=== PATIENT | female | born 1980 | race Caucasian/White ===

== ENCOUNTER 2018-02-01 02:55 | Emergency (ER) | payer OTHER, SELFPAY ==
[2018-02-01] MEDS ORDERED: MORPHINE 4 MG/ML SYR ONE (03:20)
[2018-02-01] MEDS ORDERED: NA CHLORIDE 0.9% 1,000 ML ONE (03:21)
[2018-02-01] MEDS ORDERED: ONDANSETRON 4 MG/2 ML VIAL ONE (03:21)
[2018-02-01] MEDS ORDERED: FAMOTIDINE 20 MG/2 ML VIAL IV ONE (03:53)
[2018-02-01 03:57] LABS: Absolute Lymphocytes (CBC) 3.4 K/uL (0.7-4.9); Absolute Monocytes 0.5 K/uL (0.1-1.3); Absolute Neutrophil 4.9 K/uL (1.8-8.0); Basophils % 0.5 % (0-1.3); Eosinophils % 3.1 % (0-4.4); Hematocrit 40.2 % (36.0-45.0); Lymphocytes % 36.9 % (15.3-44.8); MCH 31.5 pg (27.0-35.0); MCV 90.5 fL (80-100); MPV 10.3 fL (7.6-11.3); Monocytes % 5.9 % (3.3-12.3); RBC Red Blood Cell Count 4.45 M/uL (3.86-4.86)
[2018-02-01 04:08] LABS: ALT/SGPT 47 U/L (12-78); AST/SGOT 23 U/L (15-37); Albumin 4.3 g/dL (3.4-5.0); Alkaline Phosphatase 76 U/L (45-117); Amylase Level 39 U/L (25-115); BUN Blood Urea Nitrogen 13 mg/dL (7-18); Bicarbonate 29 mmol/L (21-32); Bilirubin Direct < 0.1 mg/dL (0-0.2); Bilirubin Total 0.4 mg/dL (0.2-1.0); Glucose Level 95 mg/dL (74-106); Lipase 310 U/L (73-393); Potassium 3.5 mmol/L (3.5-5.1); Protein, Total 7.7 g/dL (6.4-8.2); Sodium Level 139 mmol/L (136-145)
[2018-02-01 04:16] LABS: Urine Blood NEGATIVE (NEG); Urine Glucose NEGATIVE (NEG); Urine Protein NEGATIVE (NEG)
[2018-02-01 04:17] LABS: Urine Bacteria <20 /HPF (<20); Urine Culture Reflex Order NOT NEEDED
[2018-02-01 04:18] LABS: Urine RBC <5 /HPF (NONE SEEN)
--- NOTE | 2018-02-01 05:36 | EDPHYS ---
Physician Documentation [facility] Name: Tommy Quigley Age: 37 yrs Sex: Female : 1980 Arrival Date: 02/01/2018 Time: 02:56 Bed 7 Private MD: Gela Banksh ED Physician Rodri Galloway HPI: 02/01 03:29 This 37 yrs old Female presents to ER via Ambulatory with complaints of carley Abdominal Pain, Back Pain. 03:29 The patient presents with pain that is acute. The symptoms are located in the lumbar carley area. Onset: The symptoms/episode began/occurred just prior to arrival. The pain does not radiate. Associated signs and symptoms: Pertinent positives: nausea, vomiting. Modifying factors: The patient symptoms are alleviated by nothing, the patient symptoms are aggravated by pressure, food. Severity of symptoms: At their worst the symptoms were moderate. The patient has not experienced similar symptoms in the past. RECHECKER: 03:00 LMP 02/01/2018 fc Historical: - Allergies: 03:13 Tdap; fc - Home Meds: 03:13 Unisom Sleepgels oral oral nightly [Active]; Melatonin Oral nightly [Active]; fc - PMHx: 03:13 insomnia; Kidney stones; fc - PSHx: 03:13 Lithotripsy; ; fc - Immunization history:: Last tetanus immunization: up to date. - Social history:: Smoking status: Patient/guardian denies using tobacco. - Ebola Screening: : Patient negative for fever greater than or equal to 101.5 degrees Fahrenheit, and additional compatible Ebola Virus Disease symptoms Patient denies exposure to infectious person Patient denies travel to an Ebola-affected area in the 21 days before illness onset. - Family history:: not pertinent. ROS: 03:29 Constitutional: Negative for fever, chills, and weight loss, Eyes: Negative for injury, carley pain, redness, and discharge, ENT: Negative for injury, pain, and discharge, Neck: Negative for injury, pain, and swelling, Cardiovascular: Negative for chest pain, palpitations, and edema, Respiratory: Negative for shortness of breath, cough, wheezing, and pleuritic chest pain, Back: Negative for injury and pain, : Negative for injury, bleeding, discharge, and swelling, MS/Extremity: Negative for injury and deformity, Skin: Negative for injury, rash, and discoloration, Neuro: Negative for headache, weakness, numbness, tingling, and seizure, Psych: Negative for depression, anxiety, suicide ideation, homicidal ideation, and hallucinations, Allergy/Immunology: Negative for hives, rash, and allergies, Endocrine: Negative for neck swelling, polydipsia, polyuria, polyphagia, and marked weight changes, Hematologic/Lymphatic: Negative for swollen nodes, abnormal bleeding, and unusual bruising. 03:29 Abdomen/GI: Positive for abdominal pain, of the epigastric area, right upper quadrant and left upper quadrant. Exam: 03:29 Constitutional: This is a well developed, well nourished patient who is awake, alert, carley and in no acute distress. Head/Face: Normocephalic, atraumatic. Eyes: Pupils equal round and reactive to light, extra-ocular motions intact. Lids and lashes normal. Conjunctiva and sclera are non-icteric and not injected. Cornea within normal limits. Periorbital areas with no swelling, redness, or edema. ENT: Nares patent. No nasal discharge, no septal abnormalities noted. Tympanic membranes are normal and external auditory canals are clear. Oropharynx with no redness, swelling, or masses, exudates, or evidence of obstruction, uvula midline. Mucous membranes moist. Neck: Trachea midline, no thyromegaly or masses palpated, and no cervical lymphadenopathy. Supple, full range of motion without nuchal rigidity, or vertebral point tenderness. No Meningismus. Chest/axilla: Normal chest wall appearance and motion. Nontender with no deformity. No lesions are appreciated. Cardiovascular: Regular rate and rhythm with a normal S1 and S2. No gallops, murmurs, or rubs. Normal PMI, no JVD. No pulse deficits. Respiratory: Lungs have equal breath sounds bilaterally, clear to auscultation and percussion. No rales, rhonchi or wheezes noted. No increased work of breathing, no retractions or nasal flaring. Back: No spinal tenderness. No costovertebral tenderness. Full range of motion. Female : Normal external genitalia. Skin: Warm, dry with normal turgor. Normal color with no rashes, no lesions, and no evidence of cellulitis. MS/ Extremity: Pulses equal, no cyanosis. Neurovascular intact. Full, normal range of motion. Neuro: Awake and alert, GCS 15, oriented to person, place, time, and situation. Cranial nerves II-XII grossly intact. Motor strength 5/5 in all extremities. Sensory grossly intact. Cerebellar exam normal. Normal gait. Psych: Awake, alert, with orientation to person, place and time. Behavior, mood, and affect are within normal limits. 03:29 Abdomen/GI: Inspection: abdomen appears normal, Bowel sounds: normal, Palpation: moderate abdominal tenderness, in the epigastric area, right upper quadrant and left upper quadrant, Liver: no appreciated palpable abnormalities, Hernia: not appreciated. Vital Signs: 03:00 BP 134 / 101; Pulse 105; Resp 20; Temp 98.2(O); Pulse Ox 100% on R/A; Weight 77.11 kg fc (R); Height 4 ft. 11 in. (149.86 cm) (R); Pain 8/10; 04:30 BP 138 / 119; Pulse 78; Resp 19 S; Pulse Ox 96% on R/A; cc3 05:30 BP 128 / 114; Pulse 85; Resp 18 S; Pulse Ox 98% on R/A; Pain 4/10; cc3 03:00 Body Mass Index 34.34 (77.11 kg, 149.86 cm) MDM: 03:34 Data reviewed: vital signs, nurses notes, lab test result(s), EKG, radiologic studies, [facility] CT scan, plain films. 03:35 Patient medically screened. [facility] 02/01 03:07 Order name: Urine Dipstick--Ancillary (enter results); Complete Time: 04:59 [facility] 02/01 03:07 Order name: Urine --Ancillary (enter results); Complete Time: 04:59 [facility] 02/01 03:09 Order name: Amylase, Serum; Complete Time: 04:59 02/01 03:09 Order name: Basic Metabolic Panel; Complete Time: 04:59 02/01 03:09 Order name: CBC with Diff; Complete Time: 04:59 02/01 03:09 Order name: Creatinine for Radiology; Complete Time: 04:59 02/01 03:09 Order name: Hepatic Function; Complete Time: 04:59 02/01 03:09 Order name: Lipase; Complete Time: 04:59 02/01 03:09 Order name: Urine Microscopic Only; Complete Time: 04:59 bp 02/01 03:13 Order name: CT Abd/Pelvis - W/Contrast 02/01 03:28 Order name: Chest Single View XRAY [facility] 02/01 03:09 Order name: Urine Test (obtain specimen); Complete Time: 03:09 02/01 03:09 Order name: IV Saline Lock; Complete Time: 03:09 02/01 03:09 Order name: Labs collected and sent; Complete Time: 03:09 02/01 03:09 Order name: Urine Dipstick-Ancillary (obtain specimen); Complete Time: 03:09 02/01 03:34 Order name: EKG; Complete Time: 03:35 [facility] 02/01 03:34 Order name: EKG - Nurse/Tech; Complete Time: 03:42 [facility] Administered Medications: 03:15 Drug: NS 0.9% 1000 ml Route: IV; Rate: 1 bolus; Site: right antecubital; cc3 04:30 Follow up: IV Status: Completed infusion; IV Intake: 1000ml cc3 03:17 Drug: morphine 4 mg Route: IVP; Site: right antecubital; cc3 03:41 Follow up: Response: Pain is decreased bp 03:20 Drug: Zofran 4 mg Route: IVP; Site: right antecubital; cc3 03:41 Follow up: Response: Nausea is decreased bp 03:52 Drug: Pepcid 20 mg Route: IVP; Site: right antecubital; bp 03:53 Follow up: Response: No adverse reaction bp Disposition: 02/01/18 05:35 Discharged to Home. Impression: Abdominal tenderness, Nausea and vomiting. - Condition is Stable. - Discharge Instructions: Abdominal Pain, Adult, Nausea and Vomiting, Adult, Abdominal Pain, Adult, [id number]. - Prescriptions for Bentyl 20 mg Oral Tablet - take 1 tablet by ORAL route every 6 hours As needed; 20 tablet. Pepcid 20 mg Oral Tablet - take 1 tablet by ORAL route every 12 hours for 10 days; 20 tablet. Zofran 4 mg Oral Tablet - take 1 tablet by ORAL route every 12 hours As needed; 20 tablet. - Medication Reconciliation Form, Thank You Letter, Antibiotic Education, Prescription Opioid Use form. - Follow up: Angelito Banks DO; When: 2 - 3 days; Reason: Recheck today's complaints, Continuance of care, Re-evaluation by your physician. Follow up: Tushar Manuel MD; When: 2 - 3 days; Reason: Recheck today's complaints, Re-evaluation by your physician. - Problem is new. - Symptoms have improved. Signatures: Dispatcher [employer] EDMS Rodri Galloway MD MD cha Chretien, Felicia RN RN Yuri Vernon RN RN Pavithra Miguel cc3 Corrections: (The following items were deleted from the chart) 05:38 05:35 02/01/2018 05:35 Discharged to Home. Impression: Abdominal tenderness; Nausea and carley vomiting. Condition is Stable. Forms are Medication Reconciliation Form, Thank You Letter, Antibiotic Education, Prescription Opioid Use. Follow up: Angelito Banks; When: 2 - 3 days; Reason: Recheck today's complaints, Continuance of care, Re-evaluation by your physician. Problem is new. Symptoms have improved. [facility] 05:59 05:38 02/01/2018 05:35 Discharged to Home. Impression: Abdominal tenderness; Nausea and cc3 vomiting. Condition is Stable. Discharge Instructions: Abdominal Pain, Adult, Nausea and Vomiting, Adult, Abdominal Pain, Adult, [id number]. Prescriptions for Bentyl 20 mg Oral Tablet - take 1 tablet by ORAL route every 6 hours As needed; 20 tablet, Pepcid 20 mg Oral Tablet - take 1 tablet by ORAL route every 12 hours for 10 days; 20 tablet, Zofran 4 mg Oral Tablet - take 1 tablet by ORAL route every 12 hours As needed; 20 tablet. and Forms are Medication Reconciliation Form, Thank You Letter, Antibiotic Education, Prescription Opioid Use. Follow up: Angelito Banks; When: 2 - 3 days; Reason: Recheck today's complaints, Continuance of care, Re-evaluation by your physician. Follow up: Tushar Manuel; When: 2 - 3 days; Reason: Recheck today's complaints, Re-evaluation by your physician. Problem is new. Symptoms have improved. carley
--- NOTE | 2018-02-01 05:36 | ER ---
Nurse's Notes [facility] Name: Tommy Quigley Age: 37 yrs Sex: Female : 1980 Arrival Date: 02/01/2018 Time: 02:56 Bed 7 Private MD: Angelito Banks Diagnosis: Abdominal tenderness;Nausea and vomiting Presentation: 02/01 03:00 Presenting complaint: Patient states: that she is having abd pain that radiates to her back. Also positive for nausea. Denies any constipation, diarrhea, urinary problems or shortness of breath. Transition of care: patient was not received from another setting of care. Onset of symptoms was January 31, 2018. Risk Assessment: Do you want to hurt yourself or someone else? Patient reports no desire to harm self or others. Initial Sepsis Screen: Does the patient meet any 2 criteria? HR > 90 bpm. Yes Does the patient have a suspected source of infection? No. Patient's initial sepsis screen is negative. Care prior to arrival: None. 03:00 Method Of Arrival: Ambulatory 03:00 Acuity: TIERRA 3 Triage Assessment: 03:00 General: Appears uncomfortable, obese, Behavior is calm, cooperative, appropriate for age. Pain: Complains of pain in abdomen Pain radiates to back Pain currently is 8 out of 10 on a pain scale. Quality of pain is described as aching, sharp, throbbing, Pain began 1 day ago. Is continuous. EENT: No deficits noted. Neuro: Level of Consciousness is awake, alert, obeys commands, Oriented to person, place, time, situation. Cardiovascular: No deficits noted. Respiratory: No deficits noted. GI: Abdomen is non-distended, Reports lower abdominal pain, upper abdominal pain, nausea, Patient currently denies constipation, diarrhea, vomiting. : No deficits noted. Derm: Skin is pink, warm \T\ dry. Musculoskeletal: Circulation, motion, and sensation intact. Capillary refill < 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 - Social history:: Smoking status: Patient/guardian denies using tobacco. - Ebola Screening: : Patient negative for fever greater than or equal to 101.5 degrees Fahrenheit, and additional compatible Ebola Virus Disease symptoms Patient denies exposure to infectious person Patient denies travel to an Ebola-affected area in the 21 days before illness onset. - Family history:: not pertinent. Screenin:09 Abuse screen: Denies threats or abuse. Denies injuries from another. Nutritional bp screening: No deficits noted. Tuberculosis screening: No symptoms or risk factors identified. Fall Risk None identified. Assessment: 03:11 Reassessment: No changes from previously documented assessment. Patient and/or family fc updated on plan of care and expected duration. Pain level reassessed. Patient is alert, oriented x 3, equal unlabored respirations, skin warm/dry/pink. see triage assessment. 03:12 GI: Bowel sounds present X 4 quads. Abd is soft X 4 quads Abd is non tender X 4 quads. cc3 03:40 Reassessment: PO CONTRAST COMPLETED, CT NOTIFIED. bp 05:13 Reassessment: Patient appears in no apparent distress at this time. Patient and/or cc3 family updated on plan of care and expected duration. Pain level reassessed. Patient is alert, oriented x 3, equal unlabored respirations, skin warm/dry/pink. patient came back from CT scan department and CT scan abdomen/pelvis done. 05:45 Reassessment: Patient appears in no apparent distress at this time. Patient and/or cc3 family updated on plan of care and expected duration. Pain level reassessed. Patient is alert, oriented x 3, equal unlabored respirations, skin warm/dry/pink. Dr. Galloway discharged home the patient with prescription given. IV cannula removed and patient left ER vitally stable and ambulatory. Vital Signs: 03:00 BP 134 / 101; Pulse 105; Resp 20; Temp 98.2(O); Pulse Ox 100% on R/A; Weight 77.11 kg fc (R); Height 4 ft. 11 in. (149.86 cm) (R); Pain 8/10; 04:30 BP 138 / 119; Pulse 78; Resp 19 S; Pulse Ox 96% on R/A; cc3 05:30 BP 128 / 114; Pulse 85; Resp 18 S; Pulse Ox 98% on R/A; Pain 4/10; cc3 03:00 Body Mass Index 34.34 (77.11 kg, 149.86 cm) ED Course: 02:56 Patient arrived in ED. ds1 02:57 Angelito Banks DO is Private Physician. ds1 03:00 Arm band placed on Patient placed in an exam room, on a stretcher. fc 03:02 Yuri Anand, FARRAH is Primary Nurse. bp 03:08 Triage completed. fc 03:09 Inserted saline lock: 20 gauge in right antecubital area, using aseptic technique. bp 03:09 Patient has correct armband on for positive identification. Placed in gown. Bed in low bp position. Call light in reach. Side rails up X2. 03:27 Rodri Galloway MD is Attending Physician. carley 04:[address] via wheelchair. kw1 05:05 CT Abd/Pelvis - W/Contrast In Process Unspecified. EDMS 05:07 CT completed. Patient tolerated procedure well. Patient moved back from CT. kw1 05:35 Angelito Banks DO is Referral Physician. carley 05:37 Chest Single View XRAY In Process Unspecified. EDMS 05:37 Tushar Manuel MD is Referral Physician. carley 05:45 No provider procedures requiring assistance completed. IV discontinued, intact, cc3 bleeding controlled, No redness/swelling at site. Pressure dressing applied. Administered Medications: 03:15 Drug: NS 0.9% 1000 ml Route: IV; Rate: 1 bolus; Site: right antecubital; cc3 04:30 Follow up: IV Status: Completed infusion; IV Intake: 1000ml cc3 03:17 Drug: morphine 4 mg Route: IVP; Site: right antecubital; cc3 03:41 Follow up: Response: Pain is decreased bp 03:20 Drug: Zofran 4 mg Route: IVP; Site: right antecubital; cc3 03:41 Follow up: Response: Nausea is decreased bp 03:52 Drug: Pepcid 20 mg Route: IVP; Site: right antecubital; bp 03:53 Follow up: Response: No adverse reaction bp Intake: 04:30 IV: 1000ml; Total: 1000ml. cc3 Outcome: 05:35 Discharge ordered by MD. howe 05:45 Discharged to home ambulatory. cc3 05:45 Condition: stable 05:45 Discharge instructions given to patient, Instructed on discharge instructions, follow up and referral plans. medication usage, Demonstrated understanding of instructions, follow-up care, medications, Prescriptions given X 3. 05:59 Patient left the ED. cc3 Signatures: Dispatcher [employer] EDNJ Rodri Galloway MD MD cha Chretien, Felicia RN RN Veronica Mendoza1 Yuri Anand RN RN Brittney Alexandra1 Pavithra Ash cc3 Corrections: (The following items were deleted from the chart) 05:53 05:13 Reassessment: Patient appears in no apparent distress at this time. Patient cc3 and/or family updated on plan of care and expected duration. Pain level reassessed. Patient is alert, oriented x 3, equal unlabored respirations, skin warm/dry/pink. patient came back from CT scan department and CT scan abdomen/pelvis done, awaiting result. cc3
--- NOTE | 2018-02-01 08:25 | RAD REPORT ---
EXAM DESCRIPTION: CTAbdomen Pelvis W Contrast - 02/01/2018 6:57 am CLINICAL HISTORY: Abdominal pain. ABD PAIN COMPARISON: Pelvis W/Wo Cont dated 07/07/2017 TECHNIQUE: Biphasic CT imaging of the abdomen and pelvis was performed with 100 ml non-ionic IV cont rast. All CT scans are performed using dose optimization technique as appropriate and may include automated exposure control or mA/KV adjustment according to patient size. FINDINGS: The lung bases are clear. The liver demonstrates fatty infiltration. The spleen, pancreas, adrenal glands and kidneys are withi n normal limits. No bowel obstruction, free air, free fluid or abscess. The appendix is normal. No evidence of signi ficant lymphadenopathy. No suspicious bony findings. 4.7 x 4.7 cm right adnexal cyst is present. Follow-up pelvic ultrasound could be performed for furthe r assessment if clinically indicated. IMPRESSION: 4.7 x 4.7 cm right adnexal cyst. Follow-up pelvic ultrasound could be performed if clini holger needed. Fatty liver.
--- NOTE | 2018-02-01 08:51 | RAD REPORT ---
EXAM DESCRIPTION: RAD - Chest Single View - 02/01/2018 5:37 am CLINICAL HISTORY: ABDOMINAL DISTENTION Chest pain. COMPARISON: Abdomen Pelvis W Contrast dated 02/01/2018 FINDINGS: Portable technique limits examination quality. The lungs are grossly clear. The heart is normal in size. No displaced fractures. IMPRESSION: No acute intrathoracic process suspected.
--- NOTE | 2018-02-01 11:01 | EKG ---
Test Date: 2018-02-01 Test Time: 03:47:32 Corsets Salesperson: MEASUREMENT RESULTS: Intervals: Rate: 89 [place]: 160 QRSD: 80 QT: 392 QTc: 476 [place]: P: 28 OH: 160 QRS: 25 T: 25 INTERPRETIVE STATEMENTS: Normal sinus rhythm Normal ECG No previous ECG available for comparison Electronically Signed On 02-01-18 11:00:11 CDT by Nick Stein
== END 2018-02-01 05:59 | disposition home or self-care (01) ==
LOC: ER 02:55
DX: R11.2 Nausea with vomiting, unspecified (principal); Z88.7 Allergy status to serum and vaccine
CPT/HCPCS: 36415; 71045; 74177; 80048; 80076; 81003; 81015; 81025; 82150; 83690; 85025; 93005; 96361; 96374; 96375; 99284; J2405; J7030; Q9967

== ENCOUNTER 2018-02-09 23:52 | Emergency (ER) | payer SELFPAY ==
[2018-02-10] MEDS ORDERED: ONDANSETRON 4 MG/2 ML VIAL ONE (00:24)
[2018-02-10] MEDS ORDERED: KETOROLAC 30 MG/ML INJ ONE (00:24)
[2018-02-10] MEDS ORDERED: NA CHLORIDE 0.9% 500 ML ONE (00:24)
[2018-02-10 00:31] LABS: Urine Blood NEGATIVE (NEG); Urine Glucose NEGATIVE (NEG); Urine Protein NEGATIVE (NEG)
[2018-02-10 00:38] LABS: Absolute Lymphocytes (CBC) 2.7 K/uL (0.7-4.9); Absolute Monocytes 0.5 K/uL (0.1-1.3); Absolute Neutrophil 8.1 K/uL (1.8-8.0); Basophils % 0.5 % (0-1.3); Eosinophils % 1.9 % (0-4.4); Hematocrit 41.5 % (36.0-45.0); Lymphocytes % 23.5 % (15.3-44.8); MCH 31.4 pg (27.0-35.0); MCV 91.3 fL (80-100); MPV 10.7 fL (7.6-11.3); Monocytes % 4.7 % (3.3-12.3); RBC Red Blood Cell Count 4.55 M/uL (3.86-4.86)
[2018-02-10 00:44] LABS: Urine Bacteria <20 /HPF (<20); Urine Culture Reflex Order NOT NEEDED; Urine RBC <5 /HPF (NONE SEEN)
[2018-02-10 00:54] LABS: ALT/SGPT 37 U/L (12-78); AST/SGOT 23 U/L (15-37); Albumin 4.6 g/dL (3.4-5.0); Alkaline Phosphatase 77 U/L (45-117); BUN Blood Urea Nitrogen 12 mg/dL (7-18); Bicarbonate 27 mmol/L (21-32); Bilirubin Direct < 0.1 mg/dL (0-0.2); Bilirubin Total 1.1 mg/dL (0.2-1.0); Glucose Level 115 mg/dL (74-106); Lipase 283 U/L (73-393); Potassium 3.8 mmol/L (3.5-5.1); Protein, Total 7.8 g/dL (6.4-8.2); Sodium Level 139 mmol/L (136-145)
[2018-02-10] MEDS ORDERED: LORazepam 2 MG/ML VIAL ONE (01:31)
--- NOTE | 2018-02-10 01:45 | EDPHYS ---
Physician Documentation [facility] Name: Tommy Quigley Age: 37 yrs Sex: Female : 1980 Arrival Date: 02/09/2018 Time: 23:52 Bed 5 Private MD: Angelito Banks ED Physician Rodri Galloway HPI: 02/10 00:23 This 37 yrs old Female presents to ER via Ambulatory with complaints of snw Abdominal Pain - rad to back. 00:23 The patient presents with abdominal pain in the epigastric area. Onset: The snw symptoms/episode began/occurred 1.5 week(s) ago, and became worse. The symptoms radiate to back. Associated signs and symptoms: Pertinent positives: nausea and vomiting. The symptoms are described as stabbing. Severity of pain: At its worst the pain was severe. The patient has not experienced similar symptoms in the past. The patient has been recently seen at the [facility] Emergency Department, last week, for similar complaints labs were performed, X-rays were performed, CT scan was performed, Previous workup normal was given IV fluids, was given a prescription for pain medications, was given a prescription for an antiemetic. 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 - Social history:: Smoking status: Patient/guardian denies using tobacco. - Ebola Screening: : Patient negative for fever greater than or equal to 101.5 degrees Fahrenheit, and additional compatible Ebola Virus Disease symptoms Patient denies exposure to infectious person Patient denies travel to an Ebola-affected area in the 21 days before illness onset No symptoms or risks identified at this time. ROS: 00:23 Constitutional: Negative for fever, chills, and weight loss, Eyes: Negative for injury, snw pain, redness, and discharge, ENT: Negative for injury, pain, and discharge, Neck: Negative for injury, pain, and swelling, Cardiovascular: Negative for chest pain, palpitations, and edema, Respiratory: Negative for shortness of breath, cough, wheezing, and pleuritic chest pain, Back: Negative for injury and pain, : Negative for injury, bleeding, discharge, and swelling, MS/Extremity: Negative for injury and deformity, Skin: Negative for injury, rash, and discoloration, Neuro: Negative for headache, weakness, numbness, tingling, and seizure, Psych: Negative for depression, anxiety, suicide ideation, homicidal ideation, and hallucinations. 00:23 Abdomen/GI: Positive for abdominal pain, nausea, vomiting. Exam: 00:22 Head/Face: Normocephalic, atraumatic. Eyes: Pupils equal round and reactive to light, snw extra-ocular motions intact. Lids and lashes normal. Conjunctiva and sclera are non-icteric and not injected. Cornea within normal limits. Periorbital areas with no swelling, redness, or edema. ENT: Nares patent. No nasal discharge, no septal abnormalities noted. Tympanic membranes are normal and external auditory canals are clear. Oropharynx with no redness, swelling, or masses, exudates, or evidence of obstruction, uvula midline. Mucous membranes moist. Neck: Trachea midline, no thyromegaly or masses palpated, and no cervical lymphadenopathy. Supple, full range of motion without nuchal rigidity, or vertebral point tenderness. No Meningismus. Chest/axilla: Normal chest wall appearance and motion. Nontender with no deformity. No lesions are appreciated. Cardiovascular: Regular rate and rhythm with a normal S1 and S2. No gallops, murmurs, or rubs. Normal PMI, no JVD. No pulse deficits. Respiratory: Lungs have equal breath sounds bilaterally, clear to auscultation and percussion. No rales, rhonchi or wheezes noted. No increased work of breathing, no retractions or nasal flaring. Back: No spinal tenderness. No costovertebral tenderness. Full range of motion. Skin: Warm, dry with normal turgor. Normal color with no rashes, no lesions, and no evidence of cellulitis. MS/ Extremity: Pulses equal, no cyanosis. Neurovascular intact. Full, normal range of motion. Neuro: Awake and alert, GCS 15, oriented to person, place, time, and situation. Cranial nerves II-XII grossly intact. Motor strength 5/5 in all extremities. Sensory grossly intact. Cerebellar exam normal. Normal gait. Psych: Awake, alert, with orientation to person, place and time. Behavior, mood, and affect are within normal limits. 00:22 Constitutional: The patient appears alert, anxious, in obvious pain, uncomfortable. 00:22 Abdomen/GI: Inspection: abdomen appears normal, Bowel sounds: normal, in all quadrants, Palpation: moderate abdominal tenderness, in the epigastric area. Vital Signs: 00:15 BP 111 / 95; Pulse 123; Resp 24; Temp 98.7; Pulse Ox 97% ; Weight 81.65 kg (R); bp 01:15 BP 118 / 96; Pulse 114; Resp 24; Pulse Ox 96% ; bp MDM: 00:04 Patient medically screened. snw 01:45 Data reviewed: vital signs, nurses notes. Data interpreted: Pulse oximetry: on room air snw is 96 %. Interpretation: acceptable. Counseling: I had a detailed discussion with the patient and/or guardian regarding: the historical points, exam findings, and any diagnostic results supporting the discharge/admit diagnosis, the presence of at least one elevated blood pressure reading (>120/80) during this emergency department visit, lab results, the need for outpatient follow up, to return to the emergency department if symptoms worsen or persist or if there are any questions or concerns that arise at home. Response to treatment: the patient's symptoms have markedly improved after treatment, and as a result, I will discharge patient. Special discussion: Based on the patient's Hx, exam, and Dx evaluation, there is no indication for emergent surgery or inpatient Tx. It is understood by the patient/guardian that if the Sx's persist or worsen they need to return immediately for re-evaluation. I have referred the patient to see his PCP for further evaluation of high blood pressure. Based on the history and exam findings, there is no indication for further emergent testing or inpatient evaluation. I discussed with the patient/guardian the need to see the benefits technician for further evaluation of the symptoms. I discussed with the patient/guardian the need to see the primary care provider for further evaluation of the symptoms. 02/10 00:09 Order name: Urine Culture snw 02/10 00:09 Order name: Urine Microscopic Only; Complete Time: 00:48 snw 02/10 00:11 Order name: Urine Dipstick--Ancillary (enter results); Complete Time: 00:35 ms 02/10 00:11 Order name: Urine --Ancillary (enter results); Complete Time: 00:35 ms 02/10 00:21 Order name: Lipase; Complete Time: 00:59 snw 02/10 00:21 Order name: LFT's; Complete Time: 00:59 snw 02/10 00:09 Order name: Urine Test (obtain specimen); Complete Time: 00:09 snw 02/10 00:09 Order name: Urine Dipstick-Ancillary (obtain specimen); Complete Time: 00:09 snw 02/10 00:21 Order name: CBC with Diff; Complete Time: 00:41 snw 02/10 00:21 Order name: Chem 7; Complete Time: 00:59 snw Administered Medications: 00:23 Drug: TORadol 60 mg Route: IM; Site: right deltoid; bp 01:24 Follow up: Response: No adverse reaction bp 00:23 Drug: NS 0.9% 500 ml Route: IV; Rate: bolus; Site: right antecubital; bp 01:57 Follow up: IV Status: Completed infusion; IV Intake: 500ml bp 00:23 Drug: Zofran 4 mg Route: IVP; Site: right antecubital; bp 01:24 Follow up: Response: Nausea is decreased bp 01:29 Drug: Ativan 2 mg Route: IVP; Site: right antecubital; bp 01:57 Follow up: Response: Marked relief of symptoms bp Disposition: 07:09 Co-signature as Attending Physician, Rodri Galloway MD I agree with the assessment and carley plan of care. Disposition: 02/10/18 01:44 Discharged to Home. Impression: Upper abdominal pain, unspecified. - Condition is Stable. - Discharge Instructions: Abdominal Pain, Adult, Food Choices for Gastroesophageal Reflux Disease, Adult, Fat and Cholesterol Restricted Diet, Hypertension. - Prescriptions for Bentyl 20 mg Oral Tablet - take 1 tablet by ORAL route every 6 hours As needed; 20 tablet. Zofran 4 mg Oral Tablet - take 1 tablet by ORAL route every 12 hours As needed; 6 tablet. - Work release form, Medication Reconciliation Form, Thank You Letter, Antibiotic Education, Prescription Opioid Use form. - Follow up: Angelito Banks, DO; When: 2 - 3 days; Reason: Recheck today's complaints, Continuance of care, Re-evaluation by your physician. Follow up: Emergency Department; When: As needed; Reason: Worsening of condition. Signatures: Dispatcher [employer] EDRodri Phelps MD MD cha Therrien, Shelly, B2B OUTSIDE SALES REPRESENTATIVE-C B2B OUTSIDE SALES REPRESENTATIVE-Csnw Yuri Anand, RN RN bp Corrections: (The following items were deleted from the chart) 01:58 01:44 02/10/2018 01:44 Discharged to Home. Impression: Upper abdominal pain, bp unspecified. Condition is Stable. Forms are Medication Reconciliation Form, Thank You Letter, Antibiotic Education, Prescription Opioid Use. Follow up: [facility]; When: 2 - 3 days; Reason: Recheck today's complaints, Continuance of care, Re-evaluation by your physician. Follow up: Emergency Department; When: As needed; Reason: Worsening of condition. snw
--- NOTE | 2018-02-10 01:45 | ER ---
Nurse's Notes [facility] Name: Tommy Quigley Age: 37 yrs Sex: Female : 1980 Arrival Date: 02/09/2018 Time: 23:52 Bed 5 Private MD: Angelito Banks Diagnosis: Upper abdominal pain, unspecified Presentation: 02/10 00:10 Presenting complaint: Patient states: EPIGASTRIC PAIN. Transition of care: patient was bp not received from another setting of care. Onset of symptoms is unknown. Risk Assessment: Do you want to hurt yourself or someone else? Patient reports no desire to harm self or others. Initial Sepsis Screen: Does the patient meet any 2 criteria? HR > 90 bpm. No. Patient's initial sepsis screen is negative. Does the patient have a suspected source of infection? No. Patient's initial sepsis screen is negative. Care prior to arrival: None. 00:10 Method Of Arrival: Ambulatory bp 00:10 Acuity: TIERRA 3 bp Triage Assessment: 00:11 General: Appears in no apparent distress. uncomfortable, obese, Behavior is bp cooperative, appropriate for age, anxious. Pain: Complains of pain in epigastric area. EENT: No deficits noted. Neuro: Level of Consciousness is awake, alert, obeys commands, Oriented to person, place, time, situation, Appropriate for age. Cardiovascular: Rhythm is sinus tachycardia. Respiratory: Airway is patent Respiratory effort is even, unlabored, Respiratory pattern is regular, symmetrical. GI: Abdomen is obese, Reports nausea, vomiting. : No signs and/or symptoms were reported regarding the genitourinary system. Derm: No deficits noted. Musculoskeletal: Circulation, motion, and sensation intact. Range of motion: intact in all extremities. 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 - Social history:: Smoking status: Patient/guardian denies using tobacco. - Ebola Screening: : Patient negative for fever greater than or equal to 101.5 degrees Fahrenheit, and additional compatible Ebola Virus Disease symptoms Patient denies exposure to infectious person Patient denies travel to an Ebola-affected area in the 21 days before illness onset No symptoms or risks identified at this time. Screenin:23 Abuse screen: Denies threats or abuse. Denies injuries from another. Nutritional bp screening: No deficits noted. Tuberculosis screening: No symptoms or risk factors identified. Fall Risk None identified. Assessment: 00:15 General: Appears distressed, uncomfortable, obese, Behavior is cooperative, appropriate bp for age, anxious. Pain: Complains of pain in abdomen. Neuro: Level of Consciousness is awake, alert, obeys commands, Oriented to person, place, time, situation, Appropriate for age. Cardiovascular: Rhythm is sinus tachycardia. Respiratory: Airway is patent Respiratory effort is even, unlabored, Respiratory pattern is symmetrical, hyperventilation tachypnea. GI: Bowel sounds present X 4 quads. Abd is soft X 4 quads. : No signs and/or symptoms were reported regarding the genitourinary system. EENT: No deficits noted. Derm: No deficits noted. Musculoskeletal: Circulation, motion, and sensation intact. Range of motion: intact in all extremities. 01:15 Reassessment: ALL CURRENT STUDIES UNREMARKABLE, PT HYPERVENTILATING. MD NOTIFIED. bp 01:57 Reassessment: PT D/C HOME AMBULATORY, DX WITH UNSPECIFIED ABDOMINAL PAIN. bp Vital Signs: 00:15 BP 111 / 95; Pulse 123; Resp 24; Temp 98.7; Pulse Ox 97% ; Weight 81.65 kg (R); bp 01:15 BP 118 / 96; Pulse 114; Resp 24; Pulse Ox 96% ; bp ED Course: 02/09 23:52 Patient arrived in ED. am2 23:53 Gaviota Banks MD is Private Physician. am2 23:53 Angelito Banks DO is Private Physician. am2 23:56 Yuri Anand, FARRAH is Primary Nurse. bp 02/10 00:02 [facility]yes [facility]NP-C [facility]. snw 00:02 Rodri Galloway MD is Attending Physician. snw 00:10 Triage completed. bp 00:10 Inserted saline lock: 20 gauge in right antecubital area, using aseptic technique. bp 00:13 Arm band placed on. bp 01:23 Patient has correct armband on for positive identification. Bed in low position. Call bp light in reach. Side rails up X2. 01:43 Angelito Banks DO is Referral Physician. snw 01:58 No provider procedures requiring assistance completed. IV discontinued, intact, bp bleeding controlled, No redness/swelling at site. Pressure dressing applied. Administered Medications: 00:23 Drug: TORadol 60 mg Route: IM; Site: right deltoid; bp 01:24 Follow up: Response: No adverse reaction bp 00:23 Drug: NS 0.9% 500 ml Route: IV; Rate: bolus; Site: right antecubital; bp 01:57 Follow up: IV Status: Completed infusion; IV Intake: 500ml bp 00:23 Drug: Zofran 4 mg Route: IVP; Site: right antecubital; bp 01:24 Follow up: Response: Nausea is decreased bp 01:29 Drug: Ativan 2 mg Route: IVP; Site: right antecubital; bp 01:57 Follow up: Response: Marked relief of symptoms bp Intake: 01:57 IV: 500ml; Total: 500ml. bp Outcome: 01:44 Discharge ordered by MD. snw 01:58 Discharged to home ambulatory. bp 01:58 Condition: stable 01:58 Discharge instructions given to patient, Instructed on discharge instructions, follow up and referral plans. medication usage, Demonstrated understanding of instructions, follow-up care, medications, Prescriptions given X 2. 01:58 Patient left the ED. bp Signatures: Cherry Reyes, MARIELY-C GOLF COURSE DESIGNER-Csnw Joann May am2 Yuri Anand, RN RN bp
== END 2018-02-10 01:58 | disposition home or self-care (01) ==
LOC: ER 23:52
DX: R10.13 Epigastric pain (principal); Z88.7 Allergy status to serum and vaccine
CPT/HCPCS: 36415; 80048; 80076; 81003; 81015; 81025; 83690; 85025; 87086; 87088; 96361; 96372; 96374; 96375; 99284; J2405

== ENCOUNTER 2018-04-19 12:04 | Emergency (ER) | payer SELFPAY ==
[2018-04-19 13:50] LABS: Absolute Lymphocytes (CBC) 2.1 K/uL (0.7-4.9); Absolute Monocytes 0.4 K/uL (0.1-1.3); Absolute Neutrophil 5.3 K/uL (1.8-8.0); Basophils % 0.6 % (0-1.3); Hematocrit 43.2 % (36.0-45.0); Lymphocytes % 26.5 % (15.3-44.8); MCH 32.2 pg (27.0-35.0); MCV 91.7 fL (80-100); MPV 9.8 fL (7.6-11.3); RBC Red Blood Cell Count 4.71 M/uL (3.86-4.86)
[2018-04-19 14:03] LABS: BUN Blood Urea Nitrogen 7 mg/dL (7-18); Bicarbonate 24 mmol/L (21-32); Glucose Level 87 mg/dL (74-106); Potassium 3.7 mmol/L (3.5-5.1); Sodium Level 138 mmol/L (136-145)
[2018-04-19 14:09] LABS: Urine Blood NEGATIVE (NEG); Urine Glucose NEGATIVE (NEG); Urine Protein NEGATIVE (NEG); Urine Specific Gravity 1.015 (1.005-1.030)
--- NOTE | 2018-04-19 14:47 | ER ---
Nurse's Notes [facility] Name: Tommy Quigley Age: 37 yrs Sex: Female : 1980 Arrival Date: 04/19/2018 Time: 12:05 Bed 30 Private MD: Angelito Banks Diagnosis: Other specified diseases and conditions complicating , childbirth and the puerperium Presentation: 04/19 12:44 Presenting complaint: Patient states: Abdominal cramping since yesterday. Denies aj1 vaginal bleeding. Reports that she is currently 8 weeks . Transition of care: patient was not received from another setting of care. Onset of symptoms was April 19, 2018. Risk Assessment: Do you want to hurt yourself or someone else? Patient reports no desire to harm self or others. Initial Sepsis Screen: Does the patient meet any 2 criteria? No. Patient's initial sepsis screen is negative. Does the patient have a suspected source of infection? No. Patient's initial sepsis screen is negative. Care prior to arrival: None. 12:44 Method Of Arrival: Ambulatory aj1 12:44 Acuity: TIERRA 3 aj1 Triage Assessment: 12:45 General: Appears in no apparent distress. comfortable, Behavior is calm, cooperative, aj1 appropriate for age. Pain: Complains of pain in right lower quadrant and left lower quadrant Pain currently is 6 out of 10 on a pain scale. Quality of pain is described as crampy, Is intermittent. Neuro: Level of Consciousness is awake, alert, obeys commands. Cardiovascular: Patient's skin is warm and dry. Respiratory: Airway is patent Respiratory effort is even, unlabored, Respiratory pattern is regular, symmetrical. GI: Reports cramping. 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 - Social history:: Smoking status: Patient/guardian denies using tobacco. - Ebola Screening: : Patient denies travel to an Ebola-affected area in the 21 days before illness onset. Screenin:04 Abuse screen: Denies threats or abuse. Nutritional screening: No deficits noted. tw2 Tuberculosis screening: No symptoms or risk factors identified. Fall Risk None identified. Assessment: 13:10 General: Appears in no apparent distress. Behavior is calm, cooperative, appropriate tw2 for age. Pain: Complains of pain in abdomen. Neuro: Level of Consciousness is awake, alert, obeys commands, Oriented to person, place, time, situation. Cardiovascular: Denies chest pain, shortness of breath, Heart tones S1 S2 Capillary refill < 3 seconds Patient's skin is warm and dry. Respiratory: Airway is patent Respiratory effort is even, unlabored, Respiratory pattern is regular, symmetrical, Breath sounds are clear bilaterally. GI: Bowel sounds present X 4 quads. Abd is soft X 4 quads. : Reports cramping. EENT: No signs and/or symptoms were reported regarding the EENT system. Derm: No signs and/or symptoms reported regarding the dermatologic system. Musculoskeletal: Range of motion: intact in all extremities. 13:30 Reassessment: pt offered to ask provider for something for pain, pt refused states "i tw2 am ok right now". 14:11 Reassessment: pt not available for vs at this time as pt is still in [place]. tw2 14:20 Reassessment: Patient appears in no apparent distress at this time. No changes from tw2 previously documented assessment. Patient and/or family updated on plan of care and expected duration. Pain level reassessed. Patient is alert, oriented x 3, equal unlabored respirations, skin warm/dry/pink. 15:01 Reassessment: Patient appears in no apparent distress at this time. No changes from tw2 previously documented assessment. Patient and/or family updated on plan of care and expected duration. Pain level reassessed. Patient is alert, oriented x 3, equal unlabored respirations, skin warm/dry/pink. Vital Signs: 12:45 BP 113 / 59; Pulse 97; Resp 20; Temp 98.2(TE); Pulse Ox 100% on R/A; Weight 72.57 kg aj1 (R); Height 4 ft. 11 in. (149.86 cm) (R); Pain 6/10; 14:20 BP 110 / 64; Pulse 74; Resp 17; Pulse Ox 99% on R/A; tw2 15:02 BP 106 / 60; Pulse 76; Resp 17; Pulse Ox 97% on R/A; tw2 12:45 Body Mass Index 32.32 (72.57 kg, 149.86 cm) aj1 ED Course: 12:05 Patient arrived in ED. sb2 12:06 Angelito Banks DO is Private Physician. sb2 12:44 Triage completed. aj1 12:45 Arm band placed on Patient placed in waiting room, Patient notified of wait time. aj1 12:54 Jonah Almanza PA is PHCP. jmm 12:54 Gary Caldwell MD is Attending Physician. jmm 13:00 Placed in gown. Bed in low position. Pulse ox on. NIBP on. Warm blanket given. tw2 13:19 Urine collected: clean catch specimen, clear. jl7 13:23 Lissett Contreras, RN is Primary Nurse. tw2 13:30 Inserted saline lock: 22 gauge in right antecubital area, using aseptic technique. tw2 Blood collected. 14:04 US Transvaginal Ob In Process Unspecified. EDMS 14:34 Reina Bishop MD is Referral Physician. jmm 15:04 No provider procedures requiring assistance completed. IV discontinued, intact, tw2 bleeding controlled, No redness/swelling at site. Pressure dressing applied. Administered Medications: No medications were administered Outcome: 14:36 Discharge ordered by MD. jmm 15:04 Discharged to home ambulatory. tw2 15:04 Condition: stable 15:04 Discharge instructions given to patient, Instructed on discharge instructions, follow up and referral plans. Demonstrated understanding of instructions, follow-up care. 15:05 Patient left the ED. tw2 Signatures: Dispatcher [employer] EDMS Nadia Francis, RN RN aj1 Jonah Almanza PA PA Lissett Jackman, RN RN tw2 Charu Daniel RN RN jl7 Chika Adrian sb2
--- NOTE | 2018-04-19 14:48 | EDPHYS ---
Physician Documentation [facility] Name: Tommy Quigley Age: 37 yrs Sex: Female : 1980 Arrival Date: 04/19/2018 Time: 12:05 Bed 30 Private MD: Angelito Banks ED Physician Gary Caldwell HPI: 04/19 13:16 This 37 yrs old Female presents to ER via Ambulatory with complaints of [facility] Abdominal Cramping - 8wk pg. 13:16 Previous pregnancies: in previous pregnancies patient has had. This is a 37 year old jmm female that presents to the ED with pelvic pain radiating to the back worsening over the past 3 days. Denies fever, denies vomiting, but complains of nausea. Denies vaginal bleeding. . 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 - Social history:: Smoking status: Patient/guardian denies using tobacco. - Ebola Screening: : Patient denies travel to an Ebola-affected area in the 21 days before illness onset. ROS: 13:16 Constitutional: Negative for fever, chills, and weight loss, Cardiovascular: Negative [facility] for chest pain, palpitations, and edema, Respiratory: Negative for shortness of breath, cough, wheezing, and pleuritic chest pain. 13:16 : Positive for pelvic pain. 13:16 All other systems are negative. Exam: 13:16 Head/Face: atraumatic. Eyes: EOMI, no conjunctival erythema appreciated ENT: Moist jm Mucus Membranes Neck: Trachea midline, Supple Chest/axilla: Normal chest wall appearance and motion. Cardiovascular: Regular rate and rhythm. No edema appreciated Respiratory: Normal respirations, no respiratory distress appreciated 13:16 Constitutional: The patient appears in no acute distress, alert, awake. 13:16 Abdomen/GI: Inspection: abdomen appears normal, Bowel sounds: normal, Palpation: soft, mild abdominal tenderness, in the suprapubic area, rebound tenderness, is not appreciated, voluntary guarding, is not appreciated, involuntary guarding, is not appreciated, Indicators: McBurney's point is not tender, Vasquez's sign is negative. 13:16 Back: ROM is normal, CVA tenderness, is absent. 13:16 Musculoskeletal/extremity: ROM: intact in all extremities. 13:16 Skin: Appearance: Color: normal in color. 13:16 Neuro: Orientation: is normal, Mentation: is normal, Memory: is normal. 13:16 Psych: Behavior/mood is pleasant, cooperative. Vital Signs: 12:45 BP 113 / 59; Pulse 97; Resp 20; Temp 98.2(TE); Pulse Ox 100% on R/A; Weight 72.57 kg aj1 (R); Height 4 ft. 11 in. (149.86 cm) (R); Pain 6/10; 14:20 BP 110 / 64; Pulse 74; Resp 17; Pulse Ox 99% on R/A; tw2 15:02 BP 106 / 60; Pulse 76; Resp 17; Pulse Ox 97% on R/A; tw2 12:45 Body Mass Index 32.32 (72.57 kg, 149.86 cm) aj1 MDM: 13:13 Patient medically screened. [facility] 14:30 Data reviewed: vital signs, nurses notes. Counseling: I had a detailed discussion with jose carlos the patient and/or guardian regarding: the historical points, exam findings, and any diagnostic results supporting the discharge/admit diagnosis, lab results, radiology results, the need for outpatient follow up, to return to the emergency department if symptoms worsen or persist or if there are any questions or concerns that arise at home. ED course: Labs, US unremarkable. I do not suspect ectopic. Patient is afebrile. UA normal, CBC normal, I do not suspect pyelonephritis, no McBurney's point tenderness, i do not suspect acute appendicitis. Patient denies vaginal bleeding or discharge. I do not suspect PID or threatened . Symptoms appear most likely related with uterine pain of . Patient given return precautions for vaginal bleeding, fever, vomiting abdominal pain, ect. Patient understood and agrees with the plan of care. . 04/19 13:14 Order name: Abo/rh Typing; Complete Time: 14:01 [facility] 04/19 13:14 Order name: Basic Metabolic Panel; Complete Time: 14:06 [facility] 04/19 13:14 Order name: CBC with Diff; Complete Time: 14:06 [facility] 04/19 13:14 Order name: US Transvaginal Ob [facility] 04/19 13:30 Order name: Urine Dipstick--Ancillary (enter results) 04/19 13:30 Order name: Urine --Ancillary (enter results); Complete Time: 14:24 04/19 13:14 Order name: IV Saline Lock; Complete Time: 13:34 [facility] 04/19 13:14 Order name: Labs collected and sent; Complete Time: 13:34 [facility] 04/19 13:14 Order name: NPO; Complete Time: 13:33 [facility] 04/19 13:14 Order name: Urine Dipstick-Ancillary (obtain specimen); Complete Time: 13:18 [facility] Administered Medications: No medications were administered Disposition: 18:31 Co-signature as Attending Physician, Gary Caldwell MD. rn Disposition: 04/19/18 14:36 Discharged to Home. Impression: Other specified diseases and conditions complicating , childbirth and the puerperium. - Condition is Stable. - Discharge Instructions: Abdominal Pain During . - Medication Reconciliation Form, Thank You Letter, Antibiotic Education, Prescription Opioid Use form. - Follow up: Reina Bishop MD; When: 2 - 3 days; Reason: Recheck today's complaints, Continuance of care, Re-evaluation by your physician. Signatures: Dispatcher [employer] EDMS Nadia Francis RN RN aj1 Jonah Almanza PA PA [facility] Gary Caldwell MD MD rn Wise, Tara, RN RN tw2 Corrections: (The following items were deleted from the chart) 15:05 14:36 04/19/2018 14:36 Discharged to Home. Impression: Other specified diseases and tw2 conditions complicating , childbirth and the puerperium. Condition is Stable. Forms are Medication Reconciliation Form, Thank You Letter, Antibiotic Education, Prescription Opioid Use. Follow up: Reina Bishop; When: 2 - 3 days; Reason: Recheck today's complaints, Continuance of care, Re-evaluation by your physician. [facility]
--- NOTE | 2018-04-20 05:33 | RAD REPORT ---
EXAM DESCRIPTION: US - Transvaginal OB - 04/19/2018 9:38 pm CLINICAL HISTORY: with abdominal pain COMPARISON: None. FINDINGS: The uterus is retroverted and measures 11 x 5 x 6 centimeters. A gestational sac is prese nt within the endometrium. Within this is a yolk sac and pole with a crown-rump length 1.5 cent imeters. Cardiac activity 159 beats per minute Neither ovary was seen. An adnexal mass is not noted. No significant free fluid is seen. IMPRESSION: Single live intrauterine with an estimated gestational age 7 weeks 6 days [facility] 11/30/2018
== END 2018-04-19 15:05 | disposition home or self-care (01) ==
LOC: ER 12:04
DX: O99.89 Other specified diseases and conditions complicating pregnancy, childbirth and the puerperium (principal); Z3A.08 8 weeks gestation of pregnancy; Z88.7 Allergy status to serum and vaccine
CPT/HCPCS: 36415; 76817; 80048; 81003; 81025; 85025; 86900; 86901; 99284

== ENCOUNTER 2018-06-15 13:05 | Emergency (ER) | payer OTHER, SELFPAY ==
--- OUTSIDE RECORDS SUMMARY | 2018-06-15 13:07 | XMS REPORT | Summary of Care ---
:[address] [facility] Address [address] [place] [id number] Encounter HQ Shanice_mandi(FIN) [phone] Date(s): 05/01/15 - 05/02/[address] [facility] [address] [place] [address] Professional Services provided by [facility] [place] [address]- Discharge Disposition: Home Attending Physician: Renzo Espitia MD Admitting Physician: Connie Moctezuma MD Vital Signs Most recent to oldest 1 2 3 [Reference Range]: Height 147.32 cm (05/01/15 1:44 PM) Temperature Oral [96.4-99.1 98.1 DegF 98 DegF 98.1 DegF DegF] (05/02/15 5:37 PM) (05/02/15 1:44 PM) (05/02/15 9:41 AM) Blood Pressure [90-140/60-90 118/77 mmHg 107/68 mmHg 91/51 mmHg mmHg] (05/02/15 5:37 PM) (05/02/15 1:44 PM) (05/02/15 9:41 AM) Respiratory Rate [14-20 18 BRMIN 18 BRMIN 18 BRMIN BRMIN] (05/02/15 5:37 PM) (05/02/15 1:44 PM) (05/02/15 9:41 AM) Peripheral Pulse Rate 102 bpm 102 bpm 116 bpm [60-100 bpm] *HI* *HI* *HI* (05/02/15 5:37 PM) (05/02/15 1:44 PM) (05/02/15 9:41 AM) Weight 86.364 kg (05/01/15 1:44 PM) Body Mass Index 39.79 m2 (05/01/15 1:44 PM) Problem List Condition Effective Dates Status Health Status Informant Kidney stone(Confirmed)1 Resolved (Confirmed) 08/09/12 - 04/18/13 Resolved (Confirmed) 11/15/09 - 07/25/10 Resolved (Confirmed) 06/24/06 - 03/17/07 Resolved (Confirmed) 12/05/04 - 07/31/05 Resolved (Confirmed) 07/26/03 - 04/24/04 Resolved (Confirmed) 05/09/98 - 02/13/99 Resolved (Confirmed) 09/27/14 Active 1history of Allergies, Adverse Reactions, Alerts Substance Reaction Severity Status NKDA Active Medications Ambien 5 mg, 1 tab, Route: PO, Drug form: TAB, Bedtime, Dosing Weight 86.364, kg, PRN as needed for sleep, Start date: 05/01/15 22:44:00, Duration: 30 day, Stop date : 05/31/15 22:43:00 Notes: (Same As: Ambien) Start Date: 05/01/15 Stop Date: 05/02/15 Status: Discontinuedampicillin 2 gm, Route: IV, Drug form: PDR/INJ, ONCE, Dosing Weight 86.364, kg, then 1 gm IV Q4H until delivery, Start date: 05/01/15 15:25:00, Stop date: 05/01/15 15:25: 00 Notes: (Same as: Jayesh) MEDICATION WASTE Product Size: 2000 mgProduct Wasted: ___ mg Start Date: 05/01/15 Stop Date: 05/01/15 Status: Completedampicillin 1 gm, Route: IVPB, Drug form: PDR/INJ, ABXQ4H, Dosing Weight 86.364, kg, until delivery, Start date:05/01/15 20:00:00, Duration: 30 day, Stop date: 05/31/15 16 :00:00 Notes: (Same as: Jayesh) MEDICATION WASTE Product Size: 1000 mgProduct Wasted: _0_ mg Start Date: 05/01/15 Stop Date: 05/02/15 Status: Discontinuedbetamethasone 12 mg, 2 mL, Route: IM, Drug form: INJ, Q24H, Dosing Weight 86.364, kg, Start date: 05/01/15 16:00:00, Duration: 2 doses or times, Stop date: 05/02/15 16:00: 00 Notes: (betamethasone acetate-sodium phosphate 6 mg/ml INJ) (Same As: Celestone Soluspan) Start Date: 05/01/15 Stop Date: 05/02/15 Status: Completedcalcium gluconate 1 gm, 10 mL, Route: IVP, Drug form: INJ, ONCE, Dosing Weight 86.364, kg, PRN Other -See Comment, Start date: 05/01/15 15:20:00 Start Date: 05/01/15 Stop Date: 05/01/15 Status: Discontinuedindomethacin 50 mg, 2 cap, Route: PO, Drug form: CAP, Q6H, Dosing Weight 86.364, kg, Start date: 05/01/15 23:00:00, Duration: 30 day, Stop date: 05/31/15 18:00:00 Notes: (Same as: Indocin) Take with food Start Date: 05/01/15 Stop Date: 05/02/15 Status: Discontinuedindomethacin 100 mg, 4 cap, Route: PO, Drug form: CAP, ONCE, Dosing Weight 86.364, kg, Priority: STAT, Start date: 05/01/15 17:14:00, Stop date: 05/01/15 17:14:00 Notes: (Same as: Indocin) Take with food Start Date: 05/01/15 Stop Date: 05/01/15 Status: CompletedLR IV 1,000 mL 1,000 mL, Rate: 125 ml/hr, Infuse over: 8 hr, Route: IV, Dosing Weight 86.364 kg , Total Volume: 1,000, Start date: 05/01/15 15:25:00, Duration: 30 day, Stop date: 05/31/15 15:24:00 Start Date: 05/01/15 Stop Date: 05/02/15 Status: Discontinuedmagnesium sulfate 6 gm, 50 mL, Route: IVPB, Drug form: INJ, ONCE, Dosing Weight 86.364, kg, Loading dose; Dilute in 100 ml; Infuse over 30 minutes @ 200 ml/hr (STOP: Above a 6 gm loading dose, call Pharmacist or Physician), Start date: 05/01/15 15:20:00, Duration: 1... Notes: Cysf=051 mg/ml. Total volume=50 ml. Bolus dose. Run over 30 minutes. Start Date: 05/01/15 Stop Date: 05/01/15 Status: Completedmagnesium sulfate 20 gm/500 ml solution 20 gm 500 mL, Rate: 50 ml/hr, Infuse over: 10 hr, Route: IV, Dosing Weight 86.364 kg, Total Volume: 500, Start date: 05/01/15 15:20:00, Duration: 30 day, Stop date: 05/31/15 15:19:00 Notes: (Same as: MgSO4) Start Date: 05/01/15 Stop Date: 05/01/15 Status: Discontinuedmultivitamin, 1 tab, Route: PO, Drug Form: TAB, Dosing Weight 86.364, kg, Daily, Start date: 05/02/15 9:00:00, Duration: 30 day, Stop date: 05/31/15 9:00:00 Start Date: 05/02/15 Stop Date: 05/02/15 Status: DiscontinuedZofran 4 mg, 2 mL, Route: IV, Drug form: INJ, Q8H, Dosing Weight 86.364, kg, PRN Nausea , Priority: NOW, Start date: 05/01/15 17:13:00, Duration: 30 day, Stop date: 01/06 17:12:00 Notes: (Same as: Zofran) MEDICATION WASTE Product Size: 4 mgProduct Wasted: ___ mg Start Date: 05/01/15 Stop Date: 05/02/15 Status: Discontinued Results BLOOD BANK RESULTS Most recent to oldest [Reference Range]: 1 ABO/Rh AB POS *Unknown* (05/01/15 1:00 PM) Antibody Scrn Negative (05/01/15 1:00 PM) URINE AND STOOL Most recent to oldest [Reference Range]: 1 UA Turbidity [Clear] Clear (05/01/15 10:33 PM) UA Color [Yellow] Light Yellow *NA* (05/01/15 10:33 PM) UA pH [5.0-8.0] 7.0 (05/01/15 10:33 PM) UA Spec Grav [<=1.030] 1.008 (05/01/15 10:33 PM) UA Glucose [Negative mg/dL] Negative mg/dL *NA* (05/01/15 10:33 PM) UA Blood [Negative] Negative (05/01/15 10:33 PM) UA Ketones [Negative mg/dL] 60 mg/dL *ABN* (05/01/15 10:33 PM) UA Protein [Negative mg/dL] Negative mg/dL (05/01/15 10:33 PM) UA Urobilinogen [0.1-1.0 mg/dL] <=1.0 mg/dL *NA* (05/01/15 10:33 PM) UA Bili [Negative] Negative *NA* (05/01/15 10:33 PM) UA Leuk Est [Negative] Negative (05/01/15 10:33 PM) UA Nitrite [Negative] Negative (05/01/15 10:33 PM) UA WBC [0-5 /HPF] <1 /HPF (05/01/15 10:33 PM) UA Sq Epi [Few /LPF] Few /LPF *NA* (05/01/15 10:33 PM) UA Mucus [None Seen /LPF] Few /LPF *NA* (05/01/15 10:33 PM) IMMUNOLOGY Most recent to oldest [Reference Range]: 1 Treponemal Scr [Non Reactive] Non Reactive *NA* (05/01/15 3:23 PM) HIV. [Negative] Negative *NA* (05/01/15 3:23 PM) Hep Bs Ag [Negative] Negative *NA* (05/01/15 3:23 PM) HEMATOLOGY Most recent to oldest [Reference Range]: 1 WBC [3.7-10.4 K/CMM] 9.3 K/CMM (05/01/15 3:23 PM) RBC [4.20-5.40 M/CMM] 4.26 M/CMM (05/01/15 3:23 PM) Hgb [12.0-16.0 g/dL] 13.1 g/dL (05/01/15 3:23 PM) Hct [36.0-48.0 %] 39.4 % (05/01/15 3:23 PM) MCV [80.0-98.0 fL] 92.6 fL (05/01/15 3:23 PM) MCH [27.0-31.0 pg] 30.8 pg (05/01/15 3:23 PM) MCHC [32.0-36.0 g/dL] 33.2 g/dL (05/01/15 3:23 PM) RDW [11.5-14.5 %] 14.1 % (05/01/15 3:23 PM) Platelet [133-450 K/CMM] 175 K/CMM (05/01/15 3:23 PM) MPV [7.4-10.4 fL] 9.7 fL (05/01/15 3:23 PM) Segs [45.0-75.0 %] 84.1 % *HI* (05/01/15 3:23 PM) Lymphocytes [20.0-40.0 %] 10.8 % *LOW* (05/01/15 3:23 PM) Monocytes [2.0-12.0 %] 4.4 % (05/01/15 3:23 PM) Eosinophils [0.0-4.0 %] 0.5 % (05/01/15 3:23 PM) Basophils [0.0-1.0 %] 0.2 % (05/01/15 3:23 PM) Segs-Bands # [1.5-8.1 K/CMM] 7.9 K/CMM (05/01/15 3:23 PM) Lymphocytes # [1.0-5.5 K/CMM] 1.0 K/CMM (05/01/15 3:23 PM) Monocytes # [0.0-0.8 K/CMM] 0.4 K/CMM (05/01/15 3:23 PM) MOLECULAR DIAGNOSTIC Most recent to oldest [Reference Range]: 1 Source APTIMA Urine *NA* (05/01/15 10:33 PM) N gonorrhea by Amp Det (APTIMA) [Negative] Negative *NA* (05/01/15 10:33 PM) C trachomatis by Amp Det (APTIMA) [Negative] Negative *NA* (05/01/15 10:33 PM) Immunizations No data available for this section Procedures Procedure Date Related Diagnosis Body Site section Open stone operation on kidney or renal pelvis Social History Social History Type Response Substance Abuse Use: None. Sexual Sexually active: Yes. Alcohol Never Smoking Status Never smoker; Exposure to Tobacco Smoke None; Cigarette Smoking Last 365 Days No; Reg Smoking Cessation Counseling No Assessment and Plan Extracted from: Title: Clinical Document Author: Marion Buck RN Date: 05/02/15 We have arranged for patient to follow up with [facility] on May 08 at 2:15 pm. I have given patient date time and location of her appointment. Marion Buck RN [facility] Navigator Extracted from: Title: OB Antepartum Progress Note Author: Katalina Barragan MD Date: 05/02/15 Patient: TRINIDAD MC Age: 34 years Sex: Female : 1980 Associated Diagnoses: None Author: Katalina Barragan MD Basic Information Gestational Age: * Note: EGA calculated as of 05/02/2015 KAMERON: 06/30/2015 EGA*: 31 weeks 4 days Type: Authoritative Method Date: 09/27/2014 Method: Last Menstrual Period (09/27/2014) Confirmation: Confirmed Description: -- Comments: -- Entered by: ESTRELLITA ALEXANDER on 05/01/2015 Other KAMERON Calculations for this : No additional KAMERON calculations have been recorded for this . Subjective Reports feeling well. No complaints. Denies ctx, VB, LOF, +FM Health Status Allergies: (Active and Proposed Allergies Only) NKDA (Severity: Unknown severity, Onset: Unknown) Current medications: Medications (9) Active Scheduled Meds (4): 05/01/15 ampicillin 1 gm IVPB ABXQ4H 05/01/15 betamethasone 12 mg IM Q24H 05/01/15 indomethacin 50 mg PO Q6H 05/02/15 multivitamin, 1 tab PO Daily Unscheduled Meds: None PRN Meds (2): 05/01/15 ondansetron (Zofran) 4 mg IV Q8H 05/01/15 zolpidem (Ambien) 5 mg PO Bedtime One Time Meds (3): 05/01/15 (Completed) ampicillin 2 gm IV ONCE 05/01/15 (Completed) indomethacin 100 mg PO ONCE 05/01/15 (Completed) magnesium sulfate 6 gm IVPB ONCE 100 ml/hr Continuous Infusions: None Problem list: Problems (Active Problems Only) (SNOMED CT: 321550990, Onset: 09/27/14) Physical Examination VS/Measurements Inpatient Vital signs (ST) Vitals Tmp(F) Pulse BP RR SpO2 FIO2 05/02 03:59 97.8 111 95/57 16 --- --- 05/02 00:00 97.7 110 106/57 18 --- --- 05/01 20:00 97.2 94 116/62 18 --- --- 05/01 17:45 ---- 104 119/83 -- --- --- 05/01 17:40 ---- 104 119/83 -- --- --- 24 Hr Tmax: 98.8F (37.11c) at 05/01 13:52 Vital Signs are the last 5 in the past 48 hours. NAD soft, NT, gravid BLE without calf tenderness Impression and Plan 34 yo at 31w4d by LMP c/w 23wk sono with h/o prior C/S x6, PTB x3, admitted for rule out labor. - IUP: +FHT, +FM - Rule out PTL: pt p/w ctx which have subsequently resolved. Received short course of Mag on admission and ampicillin. --> s/p BMZ 1/2, next due at 1700 today. - h/o PTB: x3 at 34w and 2 at 36 w. Not on 17-OHP. - Dispo: D/C home after second dose of BMZ To be discussed with Dr Jose Elias Barragan MD PGY-2 Addendum by Connie Moctezuma MD on I saw patient with resident and care plan reviewed. IUP admit with PTL/PTC s/p corticosteroid course. 05/02/2015 12:55 Currently without complaints/contractions. Will d/c home this pm if no ctx/cervical change. Jose Elias MARTINS Extracted from: Title: OB H&P [facility] CAM Author: Yahaira Presley PA-C Date: 05/01/15 Patient: TRINIDAD MC Age: 34 years Sex: Female : 1980 Associated Diagnoses: None Author: Yahaira Presley PA-C Basic Information Gestational Age: * Note: EGA calculated as of 05/01/2015 KAMERON: 06/30/2015 EGA*: 31 weeks 3 days Type: Authoritative Method Date: 09/27/2014 Method: Last Menstrual Period (09/27/2014) Confirmation: Confirmed Description: -- Comments: -- Entered by: ESTRELLITA ALEXANDER on 05/01/2015 Other KAMERON Calculations for this : No additional KAMERON calculations have been recorded for this . Chief Complaint History of Present Illness Maternal history Maternal History (ST) Maternal History (ST) Maternal History : 7 Para: 6 SAB: 0 IAB: 0 Maternal Pre-[facility] Transcribed ABO Blood Type: Unknown Transcribed Substance Abuse: Unknown Transcribed GBS results: Unknown Transcribed HBsAg: Unknown Transcribed HIV Status: Unknown Transcribed HIV 3rd Trimester: Unknown Transcribed RPR/VDRL Results: Unknown Transcribed STD Results: Unknown Maternal Risk Factors Maternal Risk Factors Antepartum: Other: fetus has bilateral pylectosis . LMP: 09/27/14 EDC: 07/01/15 EGA: 31w3d CC: Contractions and [place] Spotting HPI: 34 yo at 31w3d by LMP presents to OB triage with complaints of pink spotting with wiping today and cramping. Denies active VB, ROM, Recent intercourse or abdominal trauma. Endorses +FM. Den ies complications this . Followed by MFM Renal Pelvis Dilation. PNC: Dr Espitia 1. Dated as above 2. No admits 3. PNL: WNL per Patient 4. MFM U/S: 04/22/15 EFW: 1748 grams, JUANITO: 11.9. Placenta Posterior Fundal, Right Hydronephrosis, Right Renal Pelvis: 11.1, Left Renal Pelvis: 4.5 mm, Breech, No evidence of previa or accreta. 5. Breast/Bottle/Spinal/BCM: Declines BTL OBHx: 02/13/99 C/S, Female, Malpresentation, 3487 grams, Preeclampsia, [place] 04/2004 Repeat C/S, Male, FT, 3884 grams, No complications, [place] 07/2005 Repeat C/S, Male, 34 weeks, 2892 grams, [place] 2006 Repeat C/S, Male, 38 weeks, 3827 grams, [place] 2007 SAB 12 weeks, NO D&C 2010 Repeat C/S, Female, 36 weeks, 3289 grams, [place] 2012 Repeat C/S, Female, 36 weeks, 2835 grams, [place] GynHx: 15/R/6 Denies Abnormal Paps or STI's PMHx: Hx of Kidney Stones, Denies stents, s/p Laser with cystoscopy x 4 SurgHx: C/S x 6 Laser with Cystoscopy x 4 Meds: PNV Allergies: NKDA Social: Negative x 3 Family Hx: HTN: Parents Histories History ,3,0,6 # 1 Baby 1 Outcome Date: 02/13/1999 Outcome: Live Outcome or Result: Primary Gender: Female Gest Age: 40 weeks Wt: 3487 g Hospital: [facility]: -- Child's Name: -- Baby's Father: -- Comment: Transverse lie # 2 Baby 1 Outcome Date: 04/24/2004 Outcome: Live Outcome or Result: Repeat Gender: Male Gest Age: 39 weeks Wt: 3884 g Hospital: [facility]: -- Child's Name: -- Baby's Father: -- # 3 Baby 1 Outcome Date: 07/31/2005 Outcome: Live Outcome or Result: Repeat Gender: Male Gest Age: 34 weeks Wt: 2892 g Hospital: [facility]: -- Child's Name: -- Baby's Father: -- # 4 Baby 1 Outcome Date: 03/17/2007 Outcome: Live Outcome or Result: Repeat Gender: Male Gest Age: 38 weeks Wt: 3827 g Hospital: [facility]: -- Child's Name: -- Baby's Father: -- # 5 Baby 1 Outcome Date: 07/25/2010 Outcome: Live Outcome or Result: Repeat Gender: Female Gest Age: 36 weeks Wt: 3289 g Hospital: -- [facility]: -- Child's Name: -- Baby's Father: -- # 6 Baby 1 Outcome Date: 04/18/2013 Outcome: Live Outcome or Result: Repeat Gender: Female Gest Age: 36 weeks Wt: 2835 g Hospital: -- [facility]: -- Child's Name: -- Baby's Father: -- Past Medical History: Resolved ([id number]): Onset on 08/09/2012 at 32 years. Resolved on 04/18/2013 at 32 years. ([id number]): Onset on 11/15/2009 at 29 years. Resolved on 07/25/2010 at 30 years. ([id number]): Onset on 06/24/2006 at 26 years. Resolved on 03/17/2007 at 26 years. ([id number]): Onset on 12/05/2004 at 24 years. Resolved on 07/31/2005 at 25 years. ([id number]): Onset on 07/26/2003 at 23 years. Resolved on 04/24/2004 at 23 years. ([id number]): Onset on 05/09/1998 at 17 years. Resolved on 02/13/1999 at 18 years. Kidney stone ([id number]): Resolved. Comments: 05/01/2015 14:01 Estrellita Tovar RN history of Family History: Family History (ST) Father: Heart disease Mother: High blood pressure Grandparent: CA - Cancer of colon; Heart attack; Heart disease; Type 2 diabetes mellitus Procedure history: section ([id number]). Open stone operation on kidney or renal pelvis ([id number]). Social History Sexual Details: Sexually active: Yes. Alcohol Details: Never Tobacco Details: Use: Never smoker. Tobacco smoke exposure: None. Did the Patient Smoke Cigarettes Anytime During the Last 365 Days? No. Cessation Counseling Provided? No. Substance Abuse Details: Use: None. . Review of Systems Constitutional: No fever, No chills, No sweats. Cardiovascular: No chest pain, No palpitations, No peripheral edema. Eye: No blurring, No visual disturbances. Ear/Nose/Mouth/Throat: Negative. Respiratory: No shortness of breath, No cough, No wheezing. Gastrointestinal: No nausea, No vomiting, No diarrhea, No constipation, No heartburn, No abdominal pain. Genitourinary: No dysuria, No hematuria, No urinary frequency. Musculoskeletal: No back pain, No joint swelling. Integumentary: Negative. Neurologic: Alert and oriented X4, No headache, No seizure. Psychiatric: No anxiety, No depression, Not suicidal. Endocrine: Negative. Hematology/Lymphatics: No bruising tendency, No bleeding tendency. Immunologic: Negative. SEE ABOVE Health Status Allergies: (Active and Proposed Allergies Only) NKDA (Severity: Unknown severity, Onset: Unknown) Current medications: No qualifying data available , Medications (0) Active Scheduled Meds: None Unscheduled Meds: None PRN Meds: None One Time Meds: None Continuous Infusions: None Problem list: Problems (Active Problems Only) (SNOMED CT: [id number], Onset: 09/27/14) Physical Examination VS/Measurements Inpatient Vital signs (ST) Vitals Tmp(F) Pulse BP RR SpO2 FIO2 05/01 13:52 98.8 108 111/58 18 --- --- 24 Hr Tmax: 98.8F (37.11c) at 05/01 13:52 Vital Signs are the last 5 in the past 48 hours. General: Alert and oriented, No acute distress. Obstetric Exam Contractions noted: irregular pattern. Cervix: dilated 0 cm, 0 % effaced, station/ evidence of descent presenting part floating, membrane status intact, no amniotic fluid. Uterus: symmetric, large for gestational age, not tender. Odom/ Baby A evaluation: movement present, heart tones ( within normal limits (110 to 160 bpm), 150 bpm), assessment of heart tracing catagory 1, lie Cephalic by BSUS. Vagina: no discharge, no lesions, no bleeding, not edematous, no varicosities. Respiratory: Lungs are clear to auscultation, Breath sounds are equal. Cardiovascular: Normal rate, Regular rhythm, No murmur, No edema. Gastrointestinal: Soft, Non-tender, Non-distended, Normal bowel sounds, Obese. Genitourinary: No costovertebral angle tenderness. Musculoskeletal No tenderness. No swelling. Integumentary: Warm, No rash. Psychiatric: Cooperative, Appropriate mood & affect, Normal judgment, Non- suicidal. Review / Management Results review: No qualifying data available. Impression and Plan 34 yo at 31w3d by LMP presents to OB triage with complaints of pink spotting with wiping today and cramping. Denies active VB, ROM, Recent intercourse or abdominal trauma. Endorses +FM. Denies c omplications this . Followed by MFM Renal Pelvis Dilation. 1. IUP at 31w3d 2. Contractions, Large ketones in urine dip. For IV hydration 3. Prior C/S x 6, Declines BTL 4. Hx of Prior PTB x 3 5. Hx of Kidney Stones 6. FHT's Reactive 7. Discussed with Dr Park. Will admit for observation, Magnesium, PCN and BMZ. Yahaira Presley PA-C Addendum by Abhi Lopes MD on 05/01/2015 20:19 R3 [facility] Note: Pt transfered from Dr. Park to the [facility] service. Above H&P confirmed with pt. Prior [facility] sonos: - 03/04/15: 23w, posterior placenta - no previa, EFW 634g (81%), male, CL 44.9mm, unilateral renal pelvic dilation with right renal pelvis AP diameter: 3.2mm; Left renal pelvis AP diameter 7.8mm. No placental lacunae. - 04/22/15: 31w, post fundal placenta, EFW 1748g (82%), AC & OFD >95%; HUM < 5%. Bilateral pyelectasis with right renal pelvis 11.1mm and left renal pelvis of 4.5mm . Noted that suspect the right kidney was likely the dilated one and was mislabeled at first scan. Bedside Sono: breech, post fundal placenta, 33w6d, 2280g, MVP 5.6 cm A/P: 34 yo at 31w3d by LMP c/w rep 7wk c/w doc 23 wk sono Prior scar x6, here for CTXs. 1) Prior scar x6 with CTXs - s/p benign spec as noted above. Pt reports cramping has improved with IVF. Cervix cl/th/hi. Admit to antepartum for monitoring. UCx, urine NG/CT ordered. UA pending. WBC wnl. Continuous monitoring. Pt refuses BTL. Mirena 2) IUP at 31w - For BMZ for FLM & Mag for Neuroprotection. Will defer NICU at this time as pt is not at immient risk of delivery. 3) PTB x3 at 34 & 36w - not on 17-OHP. 4) FHTs: reassuring 5) pyelectasis - being followed by [facility]. Last scan on 04/22. 6) H/o kidney stones - denies issues during this . UCx ordered. 7) Breech, 2280g 8. Dispo: Continue care. Pt discussed with Drs. [place] & [place]. Abhi Lopes MD PGY-3 MFM Addendum Patient seen and evaluated with Dr. Lopes. Given h/o IUP at 31w3d, prior C/ S x 6 admitted for ctx (now resolved). No cervical change. status reassuring. Will continue to monitor in house until 2nd dose of BMZ is given as per primary team. Will stop magnesium. Discussed at length about BCM and patient/ both have elected to proceed with vasectomy. Patient refuses BTL for personal reasons. Counseled at length about the risks of surgery at this point and the possible need for a vertical skin incision. All questions answered. I agree with above note. Byron Reynoso M.D. Fellow, Maternal- Medicine Division
--- OUTSIDE RECORDS SUMMARY | 2018-06-15 13:08 | XMS REPORT | Summary of Care ---
:1980 Author Organization [facility] Address [address] [place] [phone]- Encounter HQ Scarr_mandi(FIN) [id number] Date(s): 05/26/15 - 05/26/[address] Professional Services provided by [facility] [place] [address]- Discharge Disposition: Home Attending Physician: Fercho Washington MD Admitting Physician: Fercho Washington MD Vital Signs Most recent to oldest [Reference Range]: 1 Height 147.32 cm (05/26/15 9:00 PM) Temperature Oral [96.4-99.1 DegF] 98.1 DegF (05/26/15 8:45 PM) Blood Pressure [90-140/60-90 mmHg] 139/84 mmHg (05/26/15 8:45 PM) Weight 86.364 kg (05/26/15 9:00 PM) Body Mass Index 39.79 m2 (05/26/15 9:00 PM) Problem List Condition Effective Dates Status Health Status Informant Kidney stone(Confirmed)1 Resolved (Confirmed) 02/22/06 - 05/24/06 Resolved (Confirmed) 08/09/12 - 04/18/13 Resolved (Confirmed) 11/15/09 - 07/25/10 Resolved (Confirmed) 06/24/06 - 03/17/07 Resolved (Confirmed) 12/05/04 - 07/31/05 Resolved (Confirmed) 07/26/03 - 04/24/04 Resolved (Confirmed) 05/09/98 - 02/13/99 Resolved (Confirmed) 09/27/14 - 05/22/15 Resolved 1history of Allergies, Adverse Reactions, Alerts Substance Reaction Severity Status tetanus/diphth/pertuss (Tdap) adult/adol Active Medications ibuprofen 600 mg oral tablet 600 mg=1 tab, PO, Q8H, PRN pain, # 30 tab, 0 Refill(s) Start Date: 05/26/15 Status: Orderedmorphine Sulfate 4 mg, 1 mL, Route: IVP, Drug form: INJ, ONCE, Dosing Weight 86.364, kg, Priority : STAT, Start date: 05/26/15 20:44:00, Stop date: 05/26/15 20:44:00 Notes: (Same as:MORPhine Sulfate) Start Date: 05/26/15 Stop Date: 05/26/15 Status: CompletedTylenol with Codeine #3 oral tablet 1 - 2 tab, PO, Q4H, PRN Pain, X 3 day, # 20 tab, 0 Refill(s) Start Date: 05/26/15 Stop Date: 05/29/15 Status: Ordered Results No data available for this section Immunizations Vaccine Date Refusal Reason measles/mumps/rubella virus vaccine 05/26/15 Procedures Procedure Date Related Diagnosis Body Site section Open stone operation on kidney or renal pelvis Social History Social History Type Response Substance Abuse Use: None. Sexual Sexually active: Yes. Alcohol Never Smoking Status Never smoker; Exposure to Tobacco Smoke None; Cigarette Smoking Last 365 Days No; Reg Smoking Cessation Counseling No Assessment and Plan Extracted from: Title: Clinical Document Author: Raheem Pastor MD Date: 05/26/15 R3 h&P 34y s/p repeat 7th high transverse section and extensive lysis of adhesions via vertical skin incision at 34w2d secondary to labor presents here for wound evaluation. Pt is now POd # 4 and reports she felt a pop and burning sensation approx at 815 pm and saw blood at her incision and presented here for evaluation. No fevers, chills, + nausea, no vomiting. Skin was closed with 3-0 Monocryl. PNC: Dr. Espitia ([facility]) Dr. Espitia ([facility]) [facility] at 32 weeks 1. Hx kidney stones: no sx 2. Rubella nonimmune - received MMR prior to discharge 3. br/vasectomy, declines BTL 4. obesity bMI 39 OBHx: 02/13/99 C/S, Female, Malpresentation, 3487 grams, Preeclampsia, [place] 04/2004 Repeat C/S, Male, FT, 3884 grams, No complications, [place] 07/2005 Repeat C/S, Male, 34 weeks, 2892 grams, [place] 2006 Repeat C/S, Male, 38 weeks, 3827 grams, [place] 2006 SAB 12 weeks, NO D&C 2010 Repeat C/S, Female, 36 weeks, 3289 grams, [place] 2012 Repeat C/S, Female, 36 weeks, 2835 grams, [place] 2014 repeat c/s, male, 34 weeks, 2770 grams, [facility] GynHx: 15/R/6 Denies Abnormal Paps or STI's PMHx: Hx of Kidney Stones, Denies stents, s/p Laser with cystoscopy x 4, obesity SurgHx: C/S x 7 Laser with Cystoscopy x 4 Meds: PNV, iron, colace, tylenol #3, ibuprofen Allergies:tdap - resulting in hospitalization Social: Negative x 3 Family Hx: HTN: Parents PE: BP 139/84 pulse 117 temp 98.6 gen: nad abd: soft, nontender, no rebound, no guarding, obese Patient has a vertical midline incision with a 4 cm opening in inferior aspect. Opening is 4 cm x 0.5 cm. Opening was probed with sterile qtip and fascia found to be intact. Wound is not deep enough to pack, no tracking noted. No erythema, no drainage, no induration, no signs of infection. extrem: nontender to palpation A/P: 34y s/p repeat 7th high transverse section and extensive lysis of adhesions via vertical skin incision at 34w2d secondary to labor presents here for wound evaluation. 1. wound dehiscence - 4 cm x 0.5 cm in posterior vertical aspect of incision. Fascia intact, no tracking, no signs of infection. We placed gauze tightly inside of incision, but not deep enough to pack. We taught how to change gauze dressing and placed gauze on top of wound. Patient was given infection precautions. Will followup in clinic this . We gave supplies to patient. 2. breast/ will get vasectomy 3. Rh + / rubella nonimmune received MMR prior to discharge. Discharge home with precautions Pt seen with Dr. Caldwell and Discussed with Dr. Rachel Pastor MD R3
--- OUTSIDE RECORDS SUMMARY | 2018-06-15 13:08 | XMS REPORT | Summary of Care ---
:1980 Author Organization [facility] Address [address] [place] [id number]- Encounter HQ Chrisntr_mandi(FIN) [id number] Date(s): 06/02/15 - 06/02/[address] Professional Services provided by [facility] [place] [address]- Discharge Disposition: Home Attending Physician: Sara Mayen MD Vital Signs Most recent to oldest [Reference Range]: 1 Height 147.32 cm (06/02/15 10:15 AM) Temperature Oral [96.4-99.1 DegF] 98.9 DegF (06/02/15 10:18 AM) Blood Pressure [90-140/60-90 mmHg] 127/77 mmHg (06/02/15 10:18 AM) Respiratory Rate [14-20 BRMIN] 18 BRMIN (06/02/15 10:18 AM) Peripheral Pulse Rate [60-100 bpm] 85 bpm (06/02/15 10:18 AM) Weight 81.818 kg (06/02/15 10:15 AM) Body Mass Index 37.7 m2 (06/02/15 10:15 AM) Problem List Condition Effective Dates Status Health [...] mg oral tablet 600 mg=1 tab, PO, Q6H, # 30 tab, 0 Refill(s) Start Date: 06/02/15 Status: OrderedKeflex 500 mg oral capsule 500 mg=1 cap, PO, Q6H, X 10 day, # 40 cap, 0 Refill(s) Start Date: 06/02/15 Stop Date: 06/12/15 Status: Orderedtramadol 50 mg oral tablet 50 mg=1 tab, PO, Q6H, PRN Pain Score 1-3, # 20 tab, 0 Refill(s) Start Date: 06/02/15 Stop Date: 06/02/16 Status: OrderedTylenol with Codeine #3 oral tablet 1 tab, PO, Q6H, PRN Pain, X 7 day, # 30 tab, 0 Refill(s) Start Date: 06/02/15 Stop Date: 06/09/15 Status: Ordered Results No data available for [...] Plan Extracted from: Title: Clinical Document Author: Laura Gordillo MD Date: 06/02/15 R3 H&P CC: Incision pain HPI. Ms. Mc is a 34y s/p repeat 7th high transverse section and extensive lysis of adhesions via vertical skin (05/22/15) incision at 34w2d secondary to labor presents here for wound evaluation. Patient initially evaluated for wound separation on 05/26. Patient was noted to have a vertical midline incision with a 4x0.5cm opening in inferior aspect. Opening was probed with sterile qtip and fascia found to be intact. Wound is not deep enough to pack, no tracking noted. No erythema, no drainage, no induration, no signs of infection. Pt is now POD#11 and states since wednesday evening, the left aspect of her abdomen has swollen and has been getting progressively more swollen. Patient states since going home she's only required pain med s 1-2x/day however since 05/31 evening pain has worsened to 8-9/10 requiring increase use of pain meds w minimal improvement to 6-7/10. Denies subjective fevers/chills but states she feels cold and is swe ating on hands/feet. Patient reports red/yellowish discharge from her incision. Denies any foul odors. . Minimal lochia, denies foul odor. PNC: [facility] ([facility] --> Dr. Espitia ([facility]) --> [facility] at 32 weeks 1. Hx kidney stones: no sx 2. Rubella nonimmune - received MMR prior to discharge 3. br/vasectomy, declines BTL 4. obesity bMI 39 OBHx: 02/13/99 C/S, Female, Malpresentation, 3487 grams, Preeclampsia, [place] 04/2004 Repeat C/S, Male, FT, 3884 grams, No complications, [place] 07/2005 Repeat C/S, Male, 34 weeks, 2892 grams, [place] 2006 Repeat C/S, Male, 38 weeks, 3827 grams, [place] 2006 SAB 12 weeks, NO D&C 2010 Repeat C/S, Female, 36 weeks, 3289 grams, [place] 2012 Repeat C/S, Female, 36 weeks, 2835 grams, [place] 2014 repeat c/s, male, 34 weeks, 2770 grams, [facility] GynHx: 15/R/6 Denies Abnormal Paps or STI's PMHx: Hx of Kidney Stones, Denies stents, s/p Laser with cystoscopy x 4, obesity PSHx: C/S x 7 Laser with Cystoscopy x 4 Meds: PNV, iron, colace, tylenol #3, ibuprofen Allergies:TDaP - resulting in hospitalization Family Hx: HTN: Parents Social: Denies tob/alc/drug use PE: Vitals Tmp(F) Pulse BP RR SpO2 FIO2 06/02 10:18 98.9 85 127/77 18 --- --- 24 Hr Tmax: 98.9F (37.17c) at 06/02 10:18 Vital Signs are the last 5 in the past 48 hours. NAD RRR CTAB Abd 4cm defect in mid portion of incision, .5cm wide, well vascularized tissue. Very tender to palpation of left aspect of incision with minimal warmth , no induration/erythema. When distracted, patient not tender. No masses palpated. Calves nontender, 1+ pretibial pitting edema bilaterally A/P: 34y s/p repeat CS/extensive ALEXANDER via vertical skin incision at 34w2d secondary to labor with wound separation here for pain. 1. Wound separation w worsening pain. Wound well vascularized. No abnormalities in subcutaneous tissue palpated on exam. Do not suspect patient needs additional imaging at this point. --Rx ibuprofen/tylenol#3/tramadol --Rx Keflex --F/U in clinic at scheduled appt on . Patient seen/evaluated w Dr. Robb. Laura Gordillo MD, PGY-3
--- OUTSIDE RECORDS SUMMARY | 2018-06-15 13:08 | XMS REPORT | Summary of Care ---
:1980 Author Organization [facility] Address [address] [place] [id number]- Encounter HQ Scarr_mandi(FIN) [id number] Date(s): 05/30/15 - 05/30/[address] Professional Services provided by [facility] [place] [address]- Discharge Disposition: Home Attending Physician: Fercho Washington MD Admitting Physician: Fercho Washington MD Vital Signs Most recent to oldest [Reference Range]: 1 Height 147.32 cm (05/30/15 12:15 AM) Temperature Oral [96.4-99.1 DegF] 98.4 DegF (05/30/15 12:29 AM) Blood Pressure [90-140/60-90 mmHg] 139/77 mmHg (05/30/15 12:29 AM) Weight 86.364 kg (05/30/15 12:15 AM) Body Mass Index 39.79 m2 (05/30/15 12:15 AM) Problem List Condition Effective Dates Status [...] Severity Status tetanus/diphth/pertuss (Tdap) adult/adol Active Medications No data available for this section Results No data available for this section [...] Extracted from: Title: Clinical Document Author: Raheem De La Torre MD Date: 05/30/15 R3 h&P 34y s/p repeat 7th high transverse section and extensive lysis of adhesions via vertical skin incision at 34w2d secondary to labor presents here for wound evaluation. Pt is now POd # 8 and noticed the lower edge of her incision has and came here for evaluation. Pt currently doing dry packing twice a day. PNC: Dr. Espitia (outside) Dr. Espitia ([facility]) [facility] at 32 weeks 1. Hx kidney stones: no sx 2. Rubella nonimmune - received MMR prior to discharge 3. br/vasectomy, declines BTL 4. obesity bMI 39 OBHx: 02/13/99 C/S, Female, Malpresentation, 3487 grams, Preeclampsia, [place] 04/2004 Repeat C/S, Male, FT, 3884 grams, No complications, [place] 07/2005 Repeat C/S, Male, 34 weeks, 2892 grams, [place] 2006 Repeat C/S, Male, 38 weeks, 3827 grams, [place] 2006 SAB 12 weeks, NO D&C 2010 Repeat C/S, Female, 36 weeks, 3289 grams, [place] 2012 Repeat C/S, Female, 36 weeks, 2835 grams, [place] 2014 repeat c/s, male, 34 weeks, 2770 grams, [facility] GynHx: 15/R/6 Denies Abnormal Paps or STI's PMHx: Hx of Kidney Stones, Denies stents, s/p Laser with cystoscopy x 4, obesity SurgHx: C/S x 7 Laser with Cystoscopy x 4 Meds: PNV, iron, colace, tylenol #3, ibuprofen Allergies:tdap - resulting in hospitalization Social: Negative x 3 Family Hx: HTN: Parents PE: Vitals Tmp(F) Tmp(C) Ttype BP MAP Pulse RR SpO2 FIO2 ETCO2 05/30 00:29 98.4 36.89 oral 139/77 --- 63 -- --- --- --- 24 Hr Tmax: 98.4F (36.89c) at 05/30 00:29 Vital Signs are the last 5 in the past 48 hours. 24 Hr Tmin: 98.4F (36.89c) at 05/30 00:29 Weights are the last 5 in 60 days, plus initial. gen: nad abd: soft, nontender, no rebound, no guarding, obese Patient has a vertical midline incision with a 4 cm opening in inferior aspect. Opening is 4 cm x 0.5 cm. Opening was probed with sterile qtip and fascia found to be intact. Wound is not deep enough to pack, no tracking noted. No erythema, no drainage, no induration, no signs of infection. 1 cm skin separation at bottom and top of incision. dark old blood noted at bottom edge of incision. Not skin necrosis. extrem: nontender to palpation A/P: 34y s/p [...] of wound. Patient was given infection precautions. [place] and bottom of incision skin reapproximated with steristrips. Will followup in clinic this . We gave supplies to patient. 2. breast/ will get vasectomy 3. Rh + / rubella nonimmune received MMR prior to discharge. Pt seen and evaluated with Dr. April De La Torre MD R3
--- OUTSIDE RECORDS SUMMARY | 2018-06-15 13:08 | XMS REPORT ---
:1980 Author Organization [facility] Address [address] [place] [address] Dr. Goyla [address] [place] [id number] Care Team Providers Name Role Phone Unavailable Unavailable Unavailable Problems This patient has no known problems. Allergies, Adverse Reactions, Alerts This patient has no known allergies or adverse reactions. Medications This patient has no known medications.
[2018-06-15 14:14] LABS: Absolute Lymphocytes (CBC) 1.4 K/uL (0.7-4.9); Absolute Monocytes 0.4 K/uL (0.1-1.3); Absolute Neutrophil 6.4 K/uL (1.8-8.0); Basophils % 0.1 % (0-1.3); Eosinophils % 1.2 % (0-4.4); Hematocrit 39.3 % (36.0-45.0); Lymphocytes % 16.5 % (15.3-44.8); MPV 9.6 fL (7.6-11.3); Monocytes % 4.9 % (3.3-12.3); RBC Red Blood Cell Count 4.29 M/uL (3.86-4.86)
[2018-06-15 14:52] LABS: BUN Blood Urea Nitrogen 6 mg/dL (7-18); Bicarbonate 25 mmol/L (21-32); Glucose Level 77 mg/dL (74-106); HCG, Quantitative 23156 mIU/mL (1-3); Potassium 3.7 mmol/L (3.5-5.1); Sodium Level 137 mmol/L (136-145)
[2018-06-15 15:22] LABS: Urine Blood NEGATIVE (NEG); Urine Glucose NEGATIVE (NEG); Urine Protein NEGATIVE (NEG); Urine pH 7.5 (5.0-7.0)
[2018-06-15] MEDS ORDERED: ONDANSETRON 4 MG/2 ML VIAL ONE (16:04)
[2018-06-15] MEDS ORDERED: NA CHLORIDE 0.9% 1,000 ML ONE (16:07)
--- NOTE | 2018-06-15 16:51 | EDPHYS ---
Physician Documentation [facility] Name: Tommy Quigley Age: 38 yrs Sex: Female : 1980 Arrival Date: 06/15/2018 Time: 13:08 Bed 25 Private MD: Angelito Banks ED Physician Gary Caldwell HPI: 06/15 14:00 This 38 yrs old Female presents to ER via Ambulatory with complaints of pm1 Abdominal Pain - 16 Weeks . 14:00 The patient presents with abdominal pain in the lower abdomen. Onset: The pm1 symptoms/episode began/occurred yesterday. The symptoms do not radiate. Associated signs and symptoms: Pertinent positives: nausea, Trace vaginal bleeding, less than spotting, yesterday that resolved yesterday. No vaginal bleeding today, Pertinent negatives: chest pain, diarrhea, dysuria, fever, shortness of breath, vomiting. The symptoms are described as sharp. Modifying factors: The symptoms are alleviated by nothing, the symptoms are aggravated by nothing. Severity of pain: in the emergency department the pain has resolved. The patient has not experienced similar symptoms in the past. The patient has not recently seen a physician, has seen obstetrics once for this current . . CENTRAL PROCESSING TECH: 13:18 10, Full Term 4, Premature 3, 2, Living 7, LMP 01/2018 ca1 Historical: - Allergies: 13:18 Tdap; ca1 - Home Meds: 13:18 Vitamin Oral [Active]; Prilosec Oral [Active]; Folic Acid Oral [Active]; ca1 - PMHx: 13:18 insomnia; Kidney stones; ca1 - PSHx: 13:18 Kidney Stones Removed; C section x 7; ca1 - Immunization history:: Flu vaccine is not up to date. - Social history:: Smoking status: Patient/guardian denies using tobacco. - Ebola Screening: : No symptoms or risks identified at this time. ROS: 14:00 Constitutional: Negative for fever, chills, and weight loss, Eyes: Negative for injury, pm1 pain, redness, and discharge, ENT: Negative for injury, pain, and discharge, Neck: Negative for injury, pain, and swelling, Cardiovascular: Negative for chest pain, palpitations, and edema, Respiratory: Negative for shortness of breath, cough, wheezing, and pleuritic chest pain. 14:00 Back: Negative for injury and pain, MS/Extremity: Negative for injury and deformity, Skin: Negative for injury, rash, and discoloration, Neuro: Negative for headache, weakness, numbness, tingling, and seizure. 14:00 Abdomen/GI: Positive for abdominal pain, nausea, Negative for vomiting, diarrhea. 14:00 : Positive for vaginal bleeding, resovled, Negative for urinary symptoms, burning with urination. Exam: 14:00 Constitutional: This is a well developed, well nourished patient who is awake, alert, pm1 and in no acute distress. Head/Face: Normocephalic, atraumatic. Eyes: Pupils equal round and reactive to light, extra-ocular motions intact. Lids and lashes normal. Conjunctiva and sclera are non-icteric and not injected. Cornea within normal limits. Periorbital areas with no swelling, redness, or edema. ENT: Nares patent. No nasal discharge, no septal abnormalities noted. Tympanic membranes are normal and external auditory canals are clear. Oropharynx with no redness, swelling, or masses, exudates, or evidence of obstruction, uvula midline. Mucous membranes moist. Neck: Trachea midline, no thyromegaly or masses palpated, and no cervical lymphadenopathy. Supple, full range of motion without nuchal rigidity, or vertebral point tenderness. No Meningismus. Chest/axilla: Normal chest wall appearance and motion. Nontender with no deformity. No lesions are appreciated. Cardiovascular: Regular rate and rhythm with a normal S1 and S2. No gallops, murmurs, or rubs. Normal PMI, no JVD. No pulse deficits. Respiratory: Lungs have equal breath sounds bilaterally, clear to auscultation and percussion. No rales, rhonchi or wheezes noted. No increased work of breathing, no retractions or nasal flaring. 14:00 Back: No spinal tenderness. No costovertebral tenderness. Full range of motion. Skin: Warm, dry with normal turgor. Normal color with no rashes, no lesions, and no evidence of cellulitis. MS/ Extremity: Pulses equal, no cyanosis. Neurovascular intact. Full, normal range of motion. 14:00 Abdomen/GI: Inspection: gravid appearance, is noted, Bowel sounds: normal, Palpation: abdomen is soft and non-tender, Top of uterus palpated 2 cm below umbilicus. 14:00 Neuro: Orientation: is normal, Motor: is normal, Gait: is steady, at a normal pace, without difficulty. Vital Signs: 13:18 BP 122 / 62; Pulse 108; Resp 16; Temp 98.9; Pulse Ox 100% on R/A; Weight 74.84 kg; ca1 Height 4 ft. 11 in. (149.86 cm); Pain 5/10; 16:04 BP 95 / 50; Pulse 80; Resp 18; Pulse Ox 100% ; tl3 16:45 BP 97 / 70; Pulse 82; Resp 18; Pulse Ox 100% on R/A; tl3 17:32 BP 114 / 66; Pulse 85; Resp 16; Pulse Ox 100% on R/A; tl3 13:18 Body Mass Index 33.33 (74.84 kg, 149.86 cm) ca1 MDM: 13:34 Patient medically screened. pm1 16:46 Data reviewed: vital signs. Data interpreted: Pulse oximetry: on room air is 100 %. pm1 Interpretation: normal. Counseling: I had a detailed discussion with the patient and/or guardian regarding: the historical points, exam findings, and any diagnostic results supporting the discharge/admit diagnosis, lab results, the need for outpatient follow up, to return to the emergency department if symptoms worsen or persist or if there are any questions or concerns that arise at home. 16:46 ED course: Patient feels better after IV fluids and feels ready to go home. She would pm1 like a prescription for Zofran. 06/15 13:40 Order name: Quantitative Hcg; Complete Time: 15:18 pm06/15 13:40 Order name: Abo/rh Typing; Complete Time: 15:18 pm06/15 13:40 Order name: Basic Metabolic Panel; Complete Time: 15:18 pm06/15 13:40 Order name: CBC with Diff; Complete Time: 14:38 pm06/15 14:01 Order name: Urine Dipstick--Ancillary (enter results); Complete Time: 15:29 bd 06/15 14:01 Order name: Urine --Ancillary (enter results); Complete Time: 15:29 bd 06/15 13:40 Order name: Urine Test (obtain specimen); Complete Time: 14:05 pm1 06/15 13:40 Order name: IV Saline Lock; Complete Time: 14:06 pm06/15 13:40 Order name: Labs collected and sent; Complete Time: 14:06 pm06/15 13:40 Order name: NPO; Complete Time: 14:05 pm06/15 13:40 Order name: Urine Dipstick-Ancillary (obtain specimen); Complete Time: 14:05 pm06/15 13:40 Order name: Heart Tones; Complete Time: 14:05 pm1 Administered Medications: 16:03 Drug: Zofran 4 mg Route: IVP; Infused Over: 2 mins; Site: left antecubital; tl3 17:33 Follow up: Response: No adverse reaction; Nausea is decreased tl3 16:03 Drug: NS 0.9% 1000 ml Route: IV; Rate: 1 bolus; Site: left antecubital; Delivery: tl3 Primary tubing; 17:33 Follow up: IV Status: Completed infusion; IV Intake: 1000ml tl3 Disposition: 18:31 Co-signature as Attending Physician, Gary Caldwell MD. rn Disposition: 06/15/18 16:51 Discharged to Home. Impression: Other specified related conditions, second trimester - nausea, round ligament pain. - Condition is Stable. - Discharge Instructions: Abdominal Pain During . - Prescriptions for Zofran 4 mg Oral Tablet - take 1 tablet by ORAL route every 12 hours As needed; 20 tablet. - Medication Reconciliation Form, Thank You Letter, Antibiotic Education, Prescription Opioid Use form. - Follow up: Emergency Department; When: As needed; Reason: Worsening of condition. Follow up: Private Physician; When: 2 - 3 days; Reason: Recheck today's complaints, Continuance of care, Re-evaluation by your physician. - Problem is new. - Symptoms have improved. Signatures: Dispatcher [employer] EDGary Baker MD MD rn Marinas, Patrick, NP [employer] pm1 Gale Chester RN RN tl3 Mireya Valle RN RN ca1 Corrections: (The following items were deleted from the chart) 16:51 16:51 06/15/2018 16:51 Discharged to Home. Impression: Other specified pm1 related conditions, second trimester - nausea. Condition is Stable. Forms are Medication Reconciliation Form, Thank You Letter, Antibiotic Education, Prescription Opioid Use. Follow up: Emergency Department; When: As needed; Reason: Worsening of condition. Follow up: Private Physician; When: 2 - 3 days; Reason: Recheck today's complaints, Continuance of care, Re-evaluation by your physician. Problem is new. Symptoms have improved. pm1 17:35 16:51 06/15/2018 16:51 Discharged to Home. Impression: Other specified tl3 related conditions, second trimester - nausea, round ligament pain. Condition is Stable. Forms are Medication Reconciliation Form, Thank You Letter, Antibiotic Education, Prescription Opioid Use. Follow up: Emergency Department; When: As needed; Reason: Worsening of condition. Follow up: Private Physician; When: 2 - 3 days; Reason: Recheck today's complaints, Continuance of care, Re-evaluation by your physician. Problem is new. Symptoms have improved. pm1
--- NOTE | 2018-06-15 16:51 | ER ---
Nurse's Notes [facility] Name: Tommy Quigley Age: 38 yrs Sex: Female : 1980 Arrival Date: 06/15/2018 Time: 13:08 Bed 25 Private MD: Angelito Banks Diagnosis: Other specified related conditions, second trimester-nausea, round ligament pain Presentation: 06/15 13:11 Presenting complaint: Patient states: she is having a short sharp intense abdominal ca1 pain for 2 days. Yesterday, she had a pinkish-red discharge. When pain starts she feels nauseated and sometimes throw up. Transition of care: patient was not received from another setting of care. Onset of symptoms was June 14, 2018. Risk Assessment: Do you want to hurt yourself or someone else? Patient reports no desire to harm self or others. Initial Sepsis Screen: Does the patient meet any 2 criteria? No. Patient's initial sepsis screen is negative. Does the patient have a suspected source of infection? No. Patient's initial sepsis screen is negative. Care prior to arrival: None. 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 - Social history:: Smoking status: Patient/guardian denies using tobacco. - Ebola Screening: : No symptoms or risks identified at this time. Screenin:07 Abuse screen: Denies threats or abuse. Nutritional screening: No deficits noted. tl3 Tuberculosis screening: No symptoms or risk factors identified. Fall Risk None identified. Assessment: 14:07 General: Appears in no apparent distress. comfortable, well groomed, well developed, tl3 well nourished, Behavior is calm, cooperative, appropriate for age. Pain: Denies pain. Neuro: Level of Consciousness is awake, alert, obeys commands, Oriented to person, place, time, situation, Appropriate for age. Cardiovascular: Heart tones S1 S2 Patient's skin is warm and dry. Respiratory: Airway is patent Respiratory effort is even, unlabored, Respiratory pattern is regular, symmetrical, Breath sounds are clear bilaterally. GI: Bowel sounds present X 4 quads. Abd is soft and non tender X 4 quads. fundal height at 2.5 cm above umbilicus. : Urine is. EENT: No signs and/or symptoms were reported regarding the EENT system. Derm: No signs and/or symptoms reported regarding the dermatologic system. Musculoskeletal: No signs and/or symptoms reported regarding the musculoskeletal system. 16:04 Reassessment: Patient and/or family updated on plan of care and expected duration. Pain tl3 level reassessed. Patient is alert, oriented x 3, equal unlabored respirations, skin warm/dry/pink. pt is nauseated, new orders received. 16:45 Reassessment: Patient appears in no apparent distress at this time. No changes from tl3 previously documented assessment. Patient and/or family updated on plan of care and expected duration. Pain level reassessed. Patient is alert, oriented x 3, equal unlabored respirations, skin warm/dry/pink. Vlad at bedside discussing POC. 17:32 Reassessment: Patient appears in no apparent distress at this time. No changes from tl3 previously documented assessment. Patient and/or family updated on plan of care and expected duration. Pain level reassessed. Patient is alert, oriented x 3, equal unlabored respirations, skin warm/dry/pink. Vital Signs: 13:18 BP 122 / 62; Pulse 108; Resp 16; Temp 98.9; Pulse Ox 100% on R/A; Weight 74.84 kg; ca1 Height 4 ft. 11 in. (149.86 cm); Pain 5/10; 16:04 BP 95 / 50; Pulse 80; Resp 18; Pulse Ox 100% ; tl3 16:45 BP 97 / 70; Pulse 82; Resp 18; Pulse Ox 100% on R/A; tl3 17:32 BP 114 / 66; Pulse 85; Resp 16; Pulse Ox 100% on R/A; tl3 13:18 Body Mass Index 33.33 (74.84 kg, 149.86 cm) ca1 Vitals: 14:07 Heart Tones 148. tl3 ED Course: 13:08 Patient arrived in ED. dl4 13:09 None, None is Private Physician. dl4 13:09 Angelito Banks DO is Private Physician. dl4 13:16 Triage completed. ca1 13:18 Arm band placed on right wrist. ca1 13:22 Vlad Hernandez NP is PHCP. pm1 13:22 Gary Caldwell MD is Attending Physician. pm1 13:30 Gale Chester, RN is Primary Nurse. tl3 13:45 Urine collected: clean catch specimen, clear, anna colored, Amount Voided: 80mL. jp3 14:05 Urine --Ancillary (enter results) Sent. jp3 14:05 Urine Dipstick--Ancillary (enter results) Sent. jp3 14:07 Patient has correct armband on for positive identification. Bed in low position. Call tl3 light in reach. Adult w/ patient. 14:07 No provider procedures requiring assistance completed. Initial lab(s) drawn, by nc, tl3 sent to lab. Inserted saline lock: 20 gauge in left antecubital area, using aseptic technique. Blood collected. 17:32 IV discontinued, intact, bleeding controlled, No redness/swelling at site. Pressure tl3 dressing applied. Administered Medications: 16:03 Drug: Zofran 4 mg Route: IVP; Infused Over: 2 mins; Site: left antecubital; tl3 17:33 Follow up: Response: No adverse reaction; Nausea is decreased tl3 16:03 Drug: NS 0.9% 1000 ml Route: IV; Rate: 1 bolus; Site: left antecubital; Delivery: tl3 Primary tubing; 17:33 Follow up: IV Status: Completed infusion; IV Intake: 1000ml tl3 Intake: 17:33 IV: 1000ml; Total: 1000ml. tl3 Outcome: 16:51 Discharge ordered by MD. pm1 17:32 Discharged to home ambulatory. tl3 17:32 Condition: stable 17:32 Discharge instructions given to patient, Instructed on discharge instructions, follow up and referral plans. Demonstrated understanding of instructions, follow-up care, medications, Prescriptions given X 1. 17:35 Patient left the ED. tl3 Signatures: Vlad Hernandez NP HEAD CONTROL CLERK pm1 Gale Chester, RN RN tl3 Mikey Talamantes jp3 Jimmy Hall dl4 Acob, Mireya, RN RN ca1
== END 2018-06-15 17:35 | disposition home or self-care (01) ==
LOC: ER 13:05
DX: O26.892 Other specified pregnancy related conditions, second trimester (principal); Z3A.16 16 weeks gestation of pregnancy; Z88.7 Allergy status to serum and vaccine
CPT/HCPCS: 36415; 80048; 81003; 81025; 84702; 85025; 86900; 86901; 96361; 96374; 99284; J2405; J7030

== ENCOUNTER 2019-07-02 17:19 | Emergency (ER) | payer OTHER ==
--- OUTSIDE RECORDS SUMMARY | 2019-07-02 17:21 | XMS REPORT ---
:1980 Author Organization [facility] Address [address] [place] [address] Dr. Goyal [address] [place] [id number] Care Team Providers Name Role Phone Unavailable Unavailable Unavailable Problems This patient has no known problems. Allergies, Adverse Reactions, Alerts This patient has no known allergies or adverse reactions. Medications This patient has no known medications. Encounters Start End Encounter Admission Attending Care Care Encounter Date/Time Date/Time Type Type Clinicians Facility Department ID 2018-10-10 Inpatient E [facility] [id number] 13:30:00
[2019-07-02] MEDS ORDERED: KETOROLAC 30 MG/ML INJ ONE (18:04)
[2019-07-02] MEDS ORDERED: MORPHINE 4 MG/ML SYR ONE ×2 (18:04→19:10)
[2019-07-02 18:35] LABS: Urine Blood NEGATIVE (NEG); Urine Glucose NEGATIVE (NEG); Urine Protein NEGATIVE (NEG); Urine Specific Gravity 1.015 (1.005-1.030)
--- NOTE | 2019-07-02 19:39 | RAD REPORT ---
EXAM DESCRIPTION: RAD - Pelvis - 07/02/2019 7:33 pm CLINICAL HISTORY: PAIN COMPARISON: Lumbar Spine Wo Con dated 05/15/2019; Pelvis W/Cont dated 04/06/2019 FINDINGS: No fracture, dislocation or radiographic evidence of AVN. IMPRESSION: Negative study.
--- NOTE | 2019-07-02 19:43 | RAD REPORT ---
EXAM DESCRIPTION: RAD - Hip Right 2 View - 07/02/2019 7:36 pm CLINICAL HISTORY: PAIN COMPARISON: No comparisons FINDINGS: Mild right hip arthritic changes. No fracture, dislocation or AVN is observed.
--- NOTE | 2019-07-02 20:04 | EDPHYS ---
Physician Documentation [facility] Name: Tommy Quigley Age: 39 yrs Sex: Female : 1980 Arrival Date: 07/02/2019 Time: 17:20 Bed 26 Private MD: ED Physician Gary Caldwell HPI: 07/02 17:50 This 39 yrs old Female presents to ER via Ambulatory with complaints of Back cp Pain, Abdominal Pain. 17:50 The patient presents with pain that is chronic, with no known mechanism of injury. The cp symptoms are located in the right low back and right hip. Onset: The symptoms/episode began/occurred gradually, and became worse today. The pain radiates to the right leg. Associated signs and symptoms: Pertinent positives: abdominal pain, Pertinent negatives: constipation, fever, incontinence, numbness, urinary retention, weakness. 17:52 Patient reports she is scheduled for biopsy tomorrow at [facility] due to concern for cp "bone cancer". Historical: - Allergies: 17:27 Tdap; rb1 - PMHx: 17:27 insomnia; Kidney stones; rb1 - PSHx: 17:27 Kidney Stones Removed; rb1 20:09 C section x 7; ls4 - Immunization history:: Adult Immunizations up to date. - Coronavirus screen:: The patient has NOT traveled to [place], [place], or [place] in the past 14 days. The patient has NOT had contact with known/suspected case of Coronavirus?. - Social history:: Smoking status: Patient/guardian denies using. - Ebola Screening: : Patient negative for fever greater than or equal to 101.5 degrees Fahrenheit, and additional compatible Ebola Virus Disease symptoms. ROS: 18:00 Constitutional: Negative for body aches, chills, fever, poor PO intake. cp 18:00 Eyes: Negative for injury, pain, redness, and discharge. cp 18:00 Cardiovascular: Negative for chest pain. cp 18:00 ENT: Negative for drainage from ear(s), ear pain, sore throat, difficulty swallowing, cp difficulty handling secretions. 18:00 Respiratory: Negative for cough, wheezing. 18:00 Abdomen/GI: Positive for abdominal pain, Negative for vomiting, diarrhea, constipation, black/tarry stool, rectal bleeding. 18:00 Back: Positive for pain at rest, pain with movement, of the right low back. 18:00 MS/extremity: Positive for pain, tenderness, of the pelvis and right hip. 18:00 Skin: Negative for rash. 18:00 All other systems are negative. Exam: 18:10 Constitutional: The patient appears in no acute distress, alert, awake, non-toxic, well cp developed, well nourished, uncomfortable. 18:10 Head/Face: Normocephalic, atraumatic. cp 18:10 Eyes: Periorbital structures: appear normal, Conjunctiva: normal, no exudate, no injection, Sclera: no appreciated abnormality, Lids and lashes: appear normal, bilaterally. 18:10 ENT: External ear(s): are unremarkable, Nose: is normal, Mouth: Lips: moist, Oral mucosa: pink and intact, moist, Posterior pharynx: is normal, airway is patent. 18:10 Chest/axilla: Inspection: normal. 18:10 Cardiovascular: Rate: tachycardic, Rhythm: regular, Edema: is not appreciated. 18:10 Respiratory: the patient does not display signs of respiratory distress, Respirations: normal, no use of accessory muscles, labored breathing, is not present, Breath sounds: are clear throughout, no decreased breath sounds. 18:10 Abdomen/GI: Inspection: abdomen appears normal, Palpation: soft, in all quadrants, mild abdominal tenderness, in the right adnexal, rebound tenderness, is not appreciated, involuntary guarding, is not appreciated. 18:10 Back: pain, that is severe, of the right low back, ROM is painful, with all movement. 18:10 Musculoskeletal/extremity: ROM: limited passive range of motion due to pain, in the right hip, Joints: All joints are normal except the right hip displays pain at rest, painful range of motion, tenderness, Weight bearing: able to fully bear weight. 18:10 Neuro: Orientation: to person, place \\T\\ time. Mentation: is normal, Motor: moves all fours, strength is normal, Sensation: is normal. Vital Signs: 17:27 BP 146 / 98; Pulse 110; Resp 19; Temp 98.2(TE); Pulse Ox 100% on R/A; Weight 74.84 kg rb1 (R); Height 4 ft. 11 in. (149.86 cm) (R); Pain 8/10; 18:11 BP 117 / 78; Pulse 97; Resp 18; Pulse Ox 97% on R/A; aj1 17:27 Body Mass Index 33.33 (74.84 kg, 149.86 cm) rb1 MDM: 17:36 Patient medically screened. cp 20:01 Data reviewed: vital signs, nurses notes, radiologic studies, plain films, and as a cp result, I will discharge patient. Response to treatment: pain improved, and as a result, I will discharge patient. 07/02 18:03 Order name: Urine Dipstick--Ancillary (enter results); Complete Time: 18:40 ms 07/02 18:03 Order name: Urine --Ancillary (enter results); Complete Time: 18:40 ms 07/02 17:49 Order name: XRAY Hip RIGHT 2 view; Complete Time: 19:49 cp 07/02 19:49 Interpretation: Report reviewed. cp 07/02 17:49 Order name: XRAY Pelvis; Complete Time: 19:49 cp 07/02 19:50 Interpretation: Report reviewed. cp 07/02 17:49 Order name: Urine Dipstick-Ancillary (obtain specimen); Complete Time: 18:10 cp 07/02 17:49 Order name: Urine Test (obtain specimen); Complete Time: 18:14 cp 07/02 17:49 Order name: IV; Complete Time: 18:10 cp Administered Medications: 18:09 Drug: morphine 4 mg Route: IVP; Site: right antecubital; aj1 19:00 Follow up: Response: No adverse reaction; Marked relief of symptoms ls4 18:09 Drug: TORadol - Ketorolac 15 mg Route: IVP; Site: right antecubital; aj1 19:00 Follow up: Response: No adverse reaction; Marked relief of symptoms ls4 19:10 Drug: morphine 4 mg Route: IVP; Site: right antecubital; aj1 19:40 Follow up: Response: No adverse reaction; Marked relief of symptoms ls4 Disposition: 07/02/19 20:03 Discharged to Home. Impression: Low back pain - right, Pain in right hip. - Condition is Stable. - Discharge Instructions: Back Pain, Adult, Hip Pain, Back Exercises. - Prescriptions for Tramadol 50 mg Oral Tablet - take 1 tablet by ORAL route every 8 hours as needed; 12 tablet. - Medication Reconciliation Form, Thank You Letter, Antibiotic Education, Prescription Opioid Use form. - Follow up: Private Physician; When: Tomorrow; Reason: Recheck today's complaints. - Problem is an ongoing problem. - Symptoms have improved. Addendum: 07/05/2019 22:10 Co-signature as Attending Physician, Gary Caldwell MD. r n Signatures: Dispatcher [employer] EDNadia Florentino RN RN aj1 Gary Caldwell MD MD rn oRdri Charlton PA PA cp Sindy Avendano RN RN rb1 Brittney Solitario RN RN ls4 Corrections: (The following items were deleted from the chart) 07/02 20:40 20:03 07/02/2019 20:03 Discharged to Home. Impression: Low back pain - right; Pain in ls4 right hip. Condition is Stable. Forms are Medication Reconciliation Form, Thank You Letter, Antibiotic Education, Prescription Opioid Use. Follow up: Private Physician; When: Tomorrow; Reason: Recheck today's complaints. Problem is an ongoing problem. Symptoms have improved. cp 07/03 14:45 07/02 17:50 Patient reports history of "bone cancer" and is scheduled for biopsy cp tomorrow at [facility]. cp
--- NOTE | 2019-07-02 20:04 | ER ---
Nurse's Notes [facility] Name: Tommy Quigley Age: 39 yrs Sex: Female : 1980 Arrival Date: 07/02/2019 Time: 17:20 Bed 26 Private MD: Diagnosis: Low back pain-right;Pain in right hip Presentation: 07/02 17:23 Presenting complaint: Patient states: Right hip pain for a while now. Has an rb1 appointment to be checked for suspicion of bone cancer on Wednesday. Transition of care: patient was not received from another setting of care. Onset of symptoms is unknown. Risk Assessment: Do you want to hurt yourself or someone else? Patient reports no desire to harm self or others. 17:23 Method Of Arrival: Ambulatory rb1 17:23 Acuity: TIERRA 3 rb1 20:08 Initial Sepsis Screen: Does the patient meet any 2 criteria? No. Patient's initial ls4 sepsis screen is negative. Does the patient have a suspected source of infection? No. Patient's initial sepsis screen is negative. Care prior to arrival: None. Triage Assessment: 17:27 General: Appears uncomfortable, Behavior is anxious, Denies fever. Pain: Complains of rb1 pain in right hip Pain currently is 9 out of 10 on a pain scale. Neuro: Level of Consciousness is awake, alert, obeys commands, Oriented to person, place, time, situation. Respiratory: Airway is patent Respiratory effort is even, unlabored, Respiratory pattern is regular, symmetrical. Musculoskeletal: Range of motion: intact in all extremities. Historical: - Allergies: 17:27 Tdap; rb1 - PMHx: 17:27 insomnia; Kidney stones; rb1 - PSHx: 17:27 Kidney Stones Removed; rb1 20:09 C section x 7; ls4 - Immunization history:: Adult Immunizations up to date. - Coronavirus screen:: The patient has NOT traveled to [place], [place], or [place] in the past 14 days. The patient has NOT had contact with known/suspected case of Coronavirus?. - Social history:: Smoking status: Patient/guardian denies using. - Ebola Screening: : Patient negative for fever greater than or equal to 101.5 degrees Fahrenheit, and additional compatible Ebola Virus Disease symptoms. Screenin:11 Abuse screen: Denies threats or abuse. Denies injuries from another. Nutritional aj1 screening: No deficits noted. Tuberculosis screening: No symptoms or risk factors identified. 20:08 Fall Risk None identified. ls4 Assessment: 18:11 General: Appears in no apparent distress. uncomfortable, Behavior is calm, cooperative, aj1 crying. Pain: Complains of pain in right hip. Neuro: Level of Consciousness is awake, alert, obeys commands, Oriented to person, place, time, situation. Cardiovascular: Patient's skin is warm and dry. Respiratory: Airway is patent Respiratory effort is even, unlabored, Respiratory pattern is regular, symmetrical. GI: No signs and/or symptoms were reported involving the gastrointestinal system. : No signs and/or symptoms were reported regarding the genitourinary system. EENT: No signs and/or symptoms were reported regarding the EENT system. Derm: No signs and/or symptoms reported regarding the dermatologic system. Skin is pink, warm \T\ dry. normal. Musculoskeletal: Circulation, motion, and sensation intact. 19:10 Reassessment: Patient reports that she is still having severe pain, crying. Notified C. aj1 JUANY Charlton. Order received. Vital Signs: 17:27 BP 146 / 98; Pulse 110; Resp 19; Temp 98.2(TE); Pulse Ox 100% on R/A; Weight 74.84 kg rb1 (R); Height 4 ft. 11 in. (149.86 cm) (R); Pain 8/10; 18:11 BP 117 / 78; Pulse 97; Resp 18; Pulse Ox 97% on R/A; aj1 17:27 Body Mass Index 33.33 (74.84 kg, 149.86 cm) rb1 ED Course: 17:20 Patient arrived in ED. as 17:26 Triage completed. rb1 17:27 Arm band placed on right wrist. rb1 17:33 Rodri Charlton PA is PHCP. cp 17:33 Gary Caldwell MD is Attending Physician. cp 17:35 Nadia Francis, FARRAH is Primary Nurse. aj1 18:10 Inserted saline lock: 20 gauge in right antecubital area, using aseptic technique. aj1 18:11 Patient has correct armband on for positive identification. Bed in low position. Call aj1 light in reach. Side rails up X 1. 18:11 No provider procedures requiring assistance completed. aj1 19:34 XRAY Pelvis In Process Unspecified. EDMS 19:36 XRAY Hip RIGHT 2 view In Process Unspecified. EDMS Administered Medications: 18:09 Drug: morphine 4 mg Route: IVP; Site: right antecubital; aj1 19:00 Follow up: Response: No adverse reaction; Marked relief of symptoms ls4 18:09 Drug: TORadol - Ketorolac 15 mg Route: IVP; Site: right antecubital; aj1 19:00 Follow up: Response: No adverse reaction; Marked relief of symptoms ls4 19:10 Drug: morphine 4 mg Route: IVP; Site: right antecubital; aj1 19:40 Follow up: Response: No adverse reaction; Marked relief of symptoms ls4 Outcome: 20:03 Discharge ordered by MD. shah 20:40 Patient left the ED. ls4 Signatures: Dispatcher [employer] EDMS Nadia Francis RN RN ajFaviola Summers Corey, PA PA cp Barber, Rebecca, RN RN rb1 Brittney Solitario RN RN ls4
[2019-07-02 21:33] VITALS: BP 140/84; TEMP 98.4; O2SAT 96
== END 2019-07-02 20:40 | disposition home or self-care (01) ==
LOC: ER 17:19
DX: M54.5 Low back pain (principal); M25.551 Pain in right hip; Z88.7 Allergy status to serum and vaccine
CPT/HCPCS: 72170; 81003; 81025; 96374; 96375; 99283

== ENCOUNTER 2021-11-25 03:43 | Inpatient (IN) | payer OTHER ==
[2021-11-25] MEDS ORDERED: NA CHLORIDE 0.9% 1,000 ML ONE ×3 (04:21→08:16)
[2021-11-25] MEDS ORDERED: ONDANSETRON 4 MG/2 ML VIAL ONE (04:21)
[2021-11-25] MEDS ORDERED: HYDROMORPHONE HCL 1 MG/ML INJ ONE ×2 (04:21→08:31)
[2021-11-25 04:37] LABS: Absolute Lymphocytes (CBC) 1.1 K/uL (0.7-4.9); Hematocrit 37.1 % (36.0-45.0); Lymphocytes % 8.7 % (15.3-44.8); MCV 91.8 fL (80-100); MPV 9.6 fL (7.6-11.3); RBC Red Blood Cell Count 4.04 M/uL (3.86-4.86)
[2021-11-25 04:48] LABS: Albumin 3.6 g/dL (3.4-5.0); Bilirubin Total 0.7 mg/dL (0.2-1.0); Potassium 3.8 mmol/L (3.5-5.1); Protein, Total 7.3 g/dL (6.4-8.2)
[2021-11-25] MEDS ORDERED: ACETAMINOPHEN 500 MG TAB ONE (04:55)
[2021-11-25] MEDS ORDERED: KETOROLAC 30 MG/ML INJ ONE (04:56)
[2021-11-25] MEDS ORDERED: NA CHLORIDE 0.9% 100 ML ONE (04:56)
[2021-11-25] MEDS ORDERED: PIPERACIL/TAZO 3.375 GM VIAL IV ONE (04:57)
[2021-11-25] MEDS ORDERED: FAMOTIDINE 20 MG/2 ML VIAL IV ONE (05:25)
[2021-11-25 05:52] LABS: Urine Blood 1+ (Negative); Urine Glucose Negative (Negative); Urine Protein 1+ (Negative)
--- NOTE | 2021-11-25 05:54 | ER ---
Nurse's Notes [facility] Name: Tommy Quigley Age: 41 yrs Sex: Female : 1980 Arrival Date: 11/25/2021 Time: 03:46 Bed 6 Private MD: Diagnosis: Pyelonephritis acute;Fever, unspecified;Elevated white blood cell count;UTI/ Urinary tract infection, site not specified;Acute cystitis Presentation: 11/25 03:57 Chief complaint: Patient states: Chills back pain began at 10 pm gradually worsening. Coronavirus screen: Vaccine status: Patient reports being unvaccinated. Client presents with at least one sign or symptom that may indicate coronavirus-19. Standard/surgical mask placed on the client. Ebola Screen: Patient negative for fever greater than or equal to 101.5 degrees Fahrenheit, and additional compatible Ebola Virus Disease symptoms. Initial Sepsis Screen: Does the patient meet any 2 criteria? HR > 90 bpm. Does the patient have a suspected source of infection? No. Patient's initial sepsis screen is negative. Risk Assessment: Do you want to hurt yourself or someone else? Patient reports no desire to harm self or others. Onset of symptoms was November 24, 2021 at 22:00. 03:57 Method Of Arrival: Wheelchair 03:57 Acuity: TIERRA 3 kl Triage Assessment: 04:02 General: Appears uncomfortable, well developed, well nourished, Behavior is anxious, kl crying, restless. Pain: Complains of pain in back Pain currently is 10 out of 10 on a pain scale. EENT: No deficits noted. No signs and/or symptoms were reported regarding the EENT system. Neuro: No deficits noted. Level of Consciousness is awake, alert, obeys commands, Oriented to person, place, time, situation. Cardiovascular: Rhythm is sinus tachycardia. Respiratory: No deficits noted. Airway is patent Trachea midline Respiratory effort is even, unlabored. GI: No deficits noted. No signs and/or symptoms were reported involving the gastrointestinal system. : No deficits noted. No signs and/or symptoms were reported regarding the genitourinary system. Derm: No deficits noted. No signs and/or symptoms reported regarding the dermatologic system. Musculoskeletal: Reports pain in back. 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 - Social history:: Smoking status: Patient denies any tobacco usage or history of. Screenin:04 Abuse screen: Denies threats or abuse. Nutritional screening: No deficits noted. kl Tuberculosis screening: No symptoms or risk factors identified. Fall Risk None identified. Assessment: 04:03 General: Appears distressed, uncomfortable, well groomed, well developed, Behavior is kl agitated, anxious, crying. 07:00 Reassessment: RECD REPORT FROM SOSA YAN. 41YO FEMALE P/W BACK PAIN, ADMIT FOR PYELO AND bp UTI. 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 bp Vital Signs: 03:57 BP 124 / 83; Pulse 139; Resp 18; Temp 100.6(O); Pulse Ox 99% on R/A; Pain 10/10; kl 05:25 BP 119 / 73; Pulse 128; kl 05:57 BP 103 / 64; Pulse 125; Resp 16; Temp 99.4(O); Pulse Ox 100% on R/A; Pain 0/10; kl 07:00 BP 102 / 60; Pulse 122; Resp 20; Temp 99.2; Pulse Ox 97% ; bp 09:34 BP 107 / 59; Pulse 120; Resp 15; Temp 99.2; Pulse Ox 98% ; bp ED Course: 03:46 Patient arrived in ED. bp1 03:54 Rodri Galloway MD is Attending Physician. carley 04:00 Triage completed. kl 04:19 Inserted saline lock: 20 gauge in right antecubital area, using aseptic technique. kl 04:39 Selin Caballero, FARRAH is Primary Nurse. aa9 04:54 Chest Single View XRAY In Process Unspecified. EDMS 05:22 Arm band placed on left wrist. aa9 05:24 Resting quietly. Appears to be sleeping. kl 05:52 Evangelista Caldwell MD is Hospitalizing Provider. carley 06:00 No apparent distress. Resting quietly. kl 06:20 CT Abd/Pelvis - IV Contrast Only In Process Unspecified. EDMS 07:00 Patient has correct armband on for positive identification. Bed in low position. Call bp light in reach. Side rails up X2. Adult w/ patient. 07:33 Primary Nurse role handed off by Selin Caballero, FARRAH bp 07:33 Yuri Anand, FARRAH is Primary Nurse. 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 morocho 09:38 No provider procedures requiring assistance completed. Patient admitted, IV remains in bp place. Administered Medications: 04:18 Drug: Zofran (Ondansetron) 4 mg Route: IVP; Site: right antecubital; kl 09:48 Follow up: Response: No adverse reaction bp 04:18 Drug: NS 0.9% 1000 ml Route: IV; Rate: 1000 ml; Site: right antecubital; kl 09:48 Follow up: IV Status: Completed infusion bp 04:19 Drug: Dilaudid (HYDROmorphone) 1 mg Route: IVP; Site: right antecubital; kl 05:59 Follow up: Response: Marked relief of symptoms kl 04:20 Drug: NS 0.9% 1000 ml Route: IV; Rate: 1 bolus; Site: right antecubital; kl 09:47 Follow up: IV Status: Completed infusion; IV Intake: 1000ml bp 04:42 CANCELLED (Physician Discretion): Zofran (Ondansetron) 4 mg IVP once; over 2 minutes bb 04:43 CANCELLED (Physician Discretion): NS 0.9% 1000 ml IV at 1 bolus Per protocol; 1000 mL bb bolus 04:43 CANCELLED (Physician Discretion): NS 0.9% 1000 ml IV at 1 bolus Per protocol; 1000 mL bb bolus 05:06 Drug: Zosyn (piperacillin-tazobactam) 3.375 grams Route: IVPB; Infused Over: 60 mins; aa9 Site: right antecubital; 05:58 Follow up: Urine output 450 ml; Response: No adverse reaction; IV Status: Completed kl infusion; IV Intake: 100ml 05:06 Drug: Ketorolac 30 mg Route: IVP; Site: right antecubital; aa9 05:07 Follow up: Response: No adverse reaction aa9 05:58 Follow up: Response: Marked relief of symptoms kl 05:07 Drug: Tylenol 1000 mg Route: PO; aa9 05:59 Follow up: Response: Temperature is decreased kl 05:16 Drug: NS 0.9% 1000 ml Route: IV; Rate: 150 ml/hr; Site: right antecubital; kl 09:48 Follow up: IV Status: Infusion continued upon admission bp 05:19 Drug: Pepcid (famotidine) 20 mg Route: IVP; Site: right antecubital; kl 05:58 Follow up: Response: No adverse reaction kl 06:47 Drug: levofloxacin 750 mg Volume: 150 ml; Route: IVPB; Infused Over: 90 mins; Site: aa9 right antecubital; 09:47 Follow up: IV Status: Completed infusion; IV Intake: 150ml bp 08:13 Drug: NS 0.9% 1000 ml Route: IV; Rate: 1 bolus; Site: right antecubital; jl7 09:47 Follow up: IV Status: Completed infusion; IV Intake: 1000ml bp 08:21 Drug: Dilaudid (HYDROmorphone) 1 mg Route: IVP; Site: right antecubital; bp 09:48 Follow up: Response: Pain is decreased bp Medication: 09:39 VIS not applicable for this client. bp Intake: 05:58 IV: 100ml; Total: 100ml. kl 09:47 IV: 1000ml; Total: 1100ml. bp 09:47 IV: 150ml; Total: 1250ml. bp 09:47 IV: 1000ml; Total: 2250ml. bp Output: 05:58 Urine: 450ml; Total: 450ml. Outcome: 05:53 Decision to Hospitalize by Provider. carley 09:39 Condition: stable bp 09:39 Instructed on the need for admit. 09:46 Admitted to Med/surg accompanied by tech, family with patient, via wheelchair, room bp 208, with chart, Report called to KILO YAN 10:14 Patient left the ED. [email or web address] Signatures: Dispatcher [employer] EDMS Brittney Hein RN RN kl Anderson, Corey, MD MD cha Leal, Jahala, RN RN jl7 Yuri Anand RN RN Deysi Schneider Aylin, RN RN aa9 JohnWesly barker MD MD rao Ballard, Brenda RN bb
--- NOTE | 2021-11-25 05:54 | EDPHYS ---
Physician Documentation [facility] Name: Tommy Quigley Age: 41 yrs Sex: Female : 1980 Arrival Date: 11/25/2021 Time: 03:46 Bed 6 Private MD: ED Physician Rodri Galloway HPI: 11/25 04:22 This 41 yrs old Female presents to ER via Wheelchair with complaints of Pain. 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 - Social history:: Smoking status: Patient denies any tobacco usage or history of. ROS: 04:24 Eyes: Negative for injury, pain, redness, and discharge, ENT: Negative for injury, carley pain, and discharge, Neck: Negative for injury, pain, and swelling, Cardiovascular: Negative for chest pain, palpitations, and edema, Respiratory: Negative for shortness of breath, cough, wheezing, and pleuritic chest pain, : Negative for injury, bleeding, discharge, and swelling, MS/Extremity: Negative for injury and deformity, Skin: Negative for injury, rash, and discoloration, Neuro: Negative for headache, weakness, numbness, tingling, and seizure, Psych: Negative for depression, anxiety, suicide ideation, homicidal ideation, and hallucinations, Allergy/Immunology: Negative for hives, rash, and allergies, Endocrine: Negative for neck swelling, polydipsia, polyuria, polyphagia, and marked weight changes, Hematologic/Lymphatic: Negative for swollen nodes, abnormal bleeding, and unusual bruising. 04:24 Constitutional: Positive for fever. 04:24 Abdomen/GI: Positive for abdominal pain, nausea, of the posterior aspect of right lateral abdomen, anterior aspect of right lateral abdomen and right lower quadrant. 04:24 Back: Positive for flank pain, on the right, radiated pain, of the right mid back and right low back. Exam: 04:24 Constitutional: This is a well developed, well nourished patient who is awake, alert, carley and in no acute distress. Head/Face: Normocephalic, atraumatic. Eyes: Pupils equal round and reactive to light, extra-ocular motions intact. Lids and lashes normal. Conjunctiva and sclera are non-icteric and not injected. Cornea within normal limits. Periorbital areas with no swelling, redness, or edema. ENT: Nares patent. No nasal discharge, no septal abnormalities noted. Tympanic membranes are normal and external auditory canals are clear. Oropharynx with no redness, swelling, or masses, exudates, or evidence of obstruction, uvula midline. Mucous membranes moist. Neck: Trachea midline, no thyromegaly or masses palpated, and no cervical lymphadenopathy. Supple, full range of motion without nuchal rigidity, or vertebral point tenderness. No Meningismus. Chest/axilla: Normal chest wall appearance and motion. Nontender with no deformity. No lesions are appreciated. Cardiovascular: Regular rate and rhythm with a normal S1 and S2. No gallops, murmurs, or rubs. Normal PMI, no JVD. No pulse deficits. Respiratory: Lungs have equal breath sounds bilaterally, clear to auscultation and percussion. No rales, rhonchi or wheezes noted. No increased work of breathing, no retractions or nasal flaring. Back: No spinal tenderness. No costovertebral tenderness. Full range of motion. Skin: Warm, dry with normal turgor. Normal color with no rashes, no lesions, and no evidence of cellulitis. MS/ Extremity: Pulses equal, no cyanosis. Neurovascular intact. Full, normal range of motion. Neuro: Awake and alert, GCS 15, oriented to person, place, time, and situation. Cranial nerves II-XII grossly intact. Motor strength 5/5 in all extremities. Sensory grossly intact. Cerebellar exam normal. Normal gait. Psych: Awake, alert, with orientation to person, place and time. Behavior, mood, and affect are within normal limits. 04:24 Abdomen/GI: Inspection: distension, Bowel sounds: normal, Palpation: moderate abdominal tenderness, in the posterior aspect of right lateral abdomen, anterior aspect of right lateral abdomen and right lower quadrant, Liver: no appreciated palpable abnormalities, Hernia: not appreciated. 05:12 ECG was reviewed by the Attending Physician. [facility] Vital Signs: 03:57 BP 124 / 83; Pulse 139; Resp 18; Temp 100.6(O); Pulse Ox 99% on R/A; Pain 10/10; kl 05:25 BP 119 / 73; Pulse 128; kl 05:57 BP 103 / 64; Pulse 125; Resp 16; Temp 99.4(O); Pulse Ox 100% on R/A; Pain 0/10; kl 07:00 BP 102 / 60; Pulse 122; Resp 20; Temp 99.2; Pulse Ox 97% ; bp 09:34 BP 107 / 59; Pulse 120; Resp 15; Temp 99.2; Pulse Ox 98% ; bp MDM: 03:54 Patient medically screened. carley 04:26 Differential diagnosis: pancreatitis, Basilar Pneumonia Cholelithiasis Metastatic carley Disease Obesity Peptic Ulcer Perforated Ulcer sprain, appendicitis, bowel obstruction, cholecystitis, Cholelithiasis, diverticulitis, gastritis, non-specific abd pain, pancreatitis. Data reviewed: vital signs, nurses notes, lab test result(s), EKG, radiologic studies, CT scan. 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 Test interpretation: by ED physician or midlevel provider: ECG, plain radiologic studies. Counseling: I had a detailed discussion with the patient and/or guardian regarding: the historical points, exam findings, and any diagnostic results supporting the discharge/admit diagnosis, lab results, radiology results. 11/25 04:20 Order name: CBC with Diff; Complete Time: 05:10 [facility] 11/25 04:20 Order name: CMP; Complete Time: 05:10 [facility] 11/25 04:20 Order name: Lipase; Complete Time: 05:10 [facility] 11/25 04:20 Order name: Urine Microscopic Only [facility] 11/25 04:20 Order name: SARS-COV-2 RT PCR (Document "Date of Onset" if Symptomatic); Complete Time: [facility] 06:11/25 04:20 Order name: Lactate; Complete Time: 06:13 [facility] 11/25 04:20 Order name: Blood Culture Adult (2) [facility] 11/25 05:52 Order name: Urine --Ancillary (enter results); Complete Time: 07:42 as6 11/25 05:52 Order name: Urine Dipstick-Ancillary; Complete Time: 06:13 EDMS 11/25 07:56 Order name: CBC with Automated Diff EDMS 11/25 07:56 Order name: CBC with Automated Diff EDMS 11/25 07:56 Order name: Comprehensive Metabolic Panel EDMS 11/25 07:56 Order name: Comprehensive Metabolic Panel EDMS 11/25 07:56 Order name: Magnesium EDMS 11/25 04:20 Order name: CT Abd/Pelvis - IV Contrast Only [facility] 11/25 04:20 Order name: Chest Single View XRAY [facility] 11/25 07:56 Order name: Magnesium EDMS 11/25 07:56 Order name: Phosphorus EDMS 11/25 07:56 Order name: Phosphorus EDMS 11/25 07:58 Order name: Test, Urine EDMS 11/25 04:20 Order name: IV Saline Lock; Complete Time: 04:40 carley 11/25 04:20 Order name: Labs collected and sent; Complete Time: 04:40 carley 11/25 04:20 Order name: Urine Dipstick-Ancillary (obtain specimen); Complete Time: 05:51 carley 11/25 04:20 Order name: Urine Test (obtain specimen); Complete Time: 05:51 carley 11/25 04:20 Order name: EKG; Complete Time: 04:21 carley 11/25 04:20 Order name: EKG - Nurse/Tech; Complete Time: 04:40 [facility] 11/25 07:56 Order name: Regular EDMS EC:12 Rate is 126 beats/min. Rhythm is regular. QRS Greer is Normal. QRS interval is normal. carley No Q waves. T waves are Normal. No ST changes noted. Clinical impression: NSR w/ Non-specific ST/T Changes and No evidence of ischemia. Interpreted by me. Reviewed by me. Administered Medications: 04:18 Drug: Zofran (Ondansetron) 4 mg Route: IVP; Site: right antecubital; kl 09:48 Follow up: Response: No adverse reaction bp 04:18 Drug: NS 0.9% 1000 ml Route: IV; Rate: 1000 ml; Site: right antecubital; kl 09:48 Follow up: IV Status: Completed infusion bp 04:19 Drug: Dilaudid (HYDROmorphone) 1 mg Route: IVP; Site: right antecubital; kl 05:59 Follow up: Response: Marked relief of symptoms kl 04:20 Drug: NS 0.9% 1000 ml Route: IV; Rate: 1 bolus; Site: right antecubital; kl 09:47 Follow up: IV Status: Completed infusion; IV Intake: 1000ml bp 04:42 CANCELLED (Physician Discretion): Zofran (Ondansetron) 4 mg IVP once; over 2 minutes bb 04:43 CANCELLED (Physician Discretion): NS 0.9% 1000 ml IV at 1 bolus Per protocol; 1000 mL bb bolus 04:43 CANCELLED (Physician Discretion): NS 0.9% 1000 ml IV at 1 bolus Per protocol; 1000 mL bb bolus 05:06 Drug: Zosyn (piperacillin-tazobactam) 3.375 grams Route: IVPB; Infused Over: 60 mins; aa9 Site: right antecubital; 05:58 Follow up: Urine output 450 ml; Response: No adverse reaction; IV Status: Completed kl infusion; IV Intake: 100ml 05:06 Drug: Ketorolac 30 mg Route: IVP; Site: right antecubital; aa9 05:07 Follow up: Response: No adverse reaction aa9 05:58 Follow up: Response: Marked relief of symptoms kl 05:07 Drug: Tylenol 1000 mg Route: PO; aa9 05:59 Follow up: Response: Temperature is decreased kl 05:16 Drug: NS 0.9% 1000 ml Route: IV; Rate: 150 ml/hr; Site: right antecubital; kl 09:48 Follow up: IV Status: Infusion continued upon admission bp 05:19 Drug: Pepcid (famotidine) 20 mg Route: IVP; Site: right antecubital; kl 05:58 Follow up: Response: No adverse reaction kl 06:47 Drug: levofloxacin 750 mg Volume: 150 ml; Route: IVPB; Infused Over: 90 mins; Site: aa9 right antecubital; 09:47 Follow up: IV Status: Completed infusion; IV Intake: 150ml bp 08:13 Drug: NS 0.9% 1000 ml Route: IV; Rate: 1 bolus; Site: right antecubital; jl7 09:47 Follow up: IV Status: Completed infusion; IV Intake: 1000ml bp 08:21 Drug: Dilaudid (HYDROmorphone) 1 mg Route: IVP; Site: right antecubital; bp 09:48 Follow up: Response: Pain is decreased bp Disposition Summary: 11/25/21 05:53 Hospitalization Ordered Hospitalization Status: Observation carley Provider: Evangelista Caldwell cha Location: Telemetry/MedSurg (observation) carley Condition: Fair carley Problem: new carley Symptoms: have improved carley Bed/Room Type: Standard carley Room Assignment: 208(11/25/21 09:33) iw Diagnosis - Pyelonephritis acute carley - Fever, unspecified carley - Elevated white blood cell count carley - UTI/ Urinary tract infection, site not specified carley - Acute cystitis carley Forms: - Medication Reconciliation Form carley - SBAR form carley Signatures: Dispatcher [employer] EDMS Brittney Hein RN Rodri Avendaño MD MD cha Williams, Irene, RN RN iw Leal, Jahala, RN RN jl7 Yuri Anand RN RN bp Avalos, Aylin, RN RN aa9 Kandy Strauss RN bb Corrections: (The following items were deleted from the chart) 04:42 04:20 Zofran (Ondansetron) 4 mg IVP once; over 2 minutes ordered. carley bb 04:43 04:20 NS 0.9% 1000 ml IV at 1 bolus Per protocol; 1000 mL bolus ordered. carley bb 04:43 04:21 NS 0.9% 1000 ml IV at 1 bolus Per protocol; 1000 mL bolus ordered. carley bb 07:20 06:50 Hydronephrosis with renal and ureteral calculous obstruction carley carley 09:33 05:53 carley iw
[2021-11-25] MEDS ORDERED: Levofloxacin 750mg IV 750 MG/150 ML BAG IV ONE (06:48)
--- NOTE | 2021-11-25 07:30 | P.HP ---
Certification for Inpatient Patient admitted to: Inpatient With expected LOS: >2 Midnights Patient will require the following post-hospital care: None Practitioner: I am a practitioner with admitting privileges, knowledge of patient current condition, hospital course, and medical plan of care. Services: Services provided to patient in accordance with Admission requirements found in Title 42 Section 412.3 of the Code of Federal Regulations Patient History Date of Service: 11/25/21 Reason for admission: Acute Pyelonephritis History of Present Illness: Ms. 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 She reports that, around 22:00 yesterday evening, she began experiencing midright abdominal pain. She states that this pain radiated around to her right flank. She states that the pain is constant and has been progressively worsening. She describes the pain as burning and grades it a 3/10 in severity. She denies any obvious inciting or alleviating factors. She has not tried to take any medications for her symptoms. On review of systems, she reports fevers, chills, dysuria, and nausea, but denies any headaches, dizziness, syncope, chest pain, palpitations, shortness of breath, wheezing, cough, vomiting, diarrhea, constipation, hematochezia, melena, hematuria, myalgia, or any other symptoms. She presented to the Emergency Department for further evaluation. Upon presentation, her vital signs were notable for a heart rate of 139 bpm and a temperature of 100.6 F. Her laboratory studies were notable for a WBC count of 12,500. Urinalysis revealed positive nitrite, 1+ blood, 3+ leukocyte esterase, and 1+ protein. Blood cultures x 2 were obtained. Chest x-ray revealed, "mild bibasilar opacities may represent atelectasis or early infection." CT abdomen/pelvis revealed, "wedgeshaped decreased attenuation left renal inferior pole anteriorly. Differential includes sequela of developing pyelonephritis versus renal infarct. Correlate urinalysis. Fatty liver. Nonobstructing right renal calculus 2 mm." In the Emergency Department, she was given piperacillintazobactam and levofloxacin. She was admitted to the General Internal Medicine service for further evaluation. Allergies tetanus and diphtheria toxoids [Tetanus&Diphtheria Toxoid] Allergy (Unknown, Verified 10/12/12 19:56) Anaphylaxis tdap immunization Allergy (Uncoded 11/14/14 15:35) Unknown Home medications list reviewed: Yes Home Medications: Amitriptyline HCl 150 mg PO BEDTIME 11/25/21 Gabapentin 800 mg PO TID 11/25/21 Tizanidine [Zanaflex] 4 mg PO BEDTIME 11/25/21 - Past Medical/Surgical History -: Perpiheral Neuropathy -: S/P Removal of Benign Back Tumor (04/2021) Review of Systems General: Fever, Chills Eyes: Unremarkable ENT: Unremarkable Respiratory: Unremarkable Cardiovascular: Unremarkable Gastrointestinal: Nausea, Abdominal Pain, No Distention Genitourinary: Dysuria Musculoskeletal: Unremarkable Integumentary: Unremarkable Neurological: Unremarkable Physical Examination - Vital Signs Temperature: 99.2 F Blood Pressure: 102/60 Pulse: 122 Respirations: 20 Pulse Ox (%): 97 - Physical Exam General: Alert, Oriented x3, Mild distress HEENT: Atraumatic Respiratory: Clear to auscultation bilaterally, Normal air movement Cardiovascular: No edema, Normal pulses, Normal S1 S2, No gallops, No rubs, No murmurs Capillary refill: <2 Seconds Gastrointestinal: Normal bowel sounds, Tenderness (mid-right abdomen) Musculoskeletal: No clubbing, No swelling, Other (bilateral CVA tenderness) Integumentary: No rashes, No cyanosis Neurological: Normal speech, Normal tone, Normal affect - Studies Laboratory Data (last 24 hrs) 11/25/21 04:15: Sodium 136, Potassium 3.8, BUN 6 L, Creatinine 0.88, Glucose 125 H, Total Bilirubin 0.7, AST 15, ALT 64, Alkaline Phosphatase 81, Lipase 169 11/25/21 04:15: WBC 12.5 H, Hgb 12.7, Hct 37.1, Plt Count 188 Assessment and Plan - Plan # Sepsis suspect secondary to Acute Left Pyelonephritis # Right-Sided Abdominal Pain - suspect due to Nonobstructing Renal Calculus (2 mm) She meets sepsis criteria based on temperature > 100.9 F, HR > 90 bpm, and WBC > 12,000 and the suspected source is acute pyelonephritis. - Sepsis order set was initiated - Initial Lactate was 0.8 - Blood cultures drawn before antibiotics were given - Broad spectrum antibiotics started: s/p levofloxacin + piperacillin-tazobactam in ED - switch to ceftriaxone - In regards to fluids: - 30 mL/kg of IV fluids was given based on her ideal body weight as her BMI is > 30. # Peripheral Neuropathy secondary to Benign Tumor s/p Removal - Resume home amitryptiline, gabapentin, tizanidine as blood pressure allows # Obesity - BMI 37.1 kg/m2 # Fatty Liver - Follow-up with PCP for further evaluation Wesly Lopez MD - Advance Directives Does patient have a Living Will: No Does patient have a Durable POA for Healthcare: No - Code Status/Comfort Care Code Status Assessed: Yes Code Status: Full Code Physician Review: Patient Assessed, Agree with Above Assessment and Plan Critical Care: No
[2021-11-25] MEDS ORDERED: ACETAMINOPHEN 500 MG TAB PO PRN (07:51)
--- NOTE | 2021-11-25 07:55 | EKG ---
Test Date: 2021-11-25 Test Time: 04:30:28 Light Bulb Replacer: MEASUREMENT RESULTS: Intervals: Rate: 126 NV: 158 QRSD: 84 QT: 298 QTc: 431 [place]: P: 60 NV: 158 QRS: 83 T: 51 INTERPRETIVE STATEMENTS: Sinus tachycardia Nonspecific T wave abnormality Abnormal ECG Compared to ECG 02/01/2018 03:47:32 T-wave abnormality now present Sinus rhythm no longer present Electronically Signed On 11-25-21 07:54:55 CDT by Nick Stein
--- NOTE | 2021-11-25 11:44 | RAD REPORT ---
EXAM DESCRIPTION: CT - Abdomen Pelvis W Contrast - 11/25/2021 7:03 am CLINICAL HISTORY: Abdominal pain, acute, nonlocalized COMPARISON: None TECHNIQUE: Contiguous axial sections of the abdomen and pelvis were obtained following administratio n of intravenous contrast. Sagittal and coronal reformatted images are generated for review. This exa m was performed according to our departmental dose-optimization program, which includes automated exp osure control, adjustment of the mA and/or kV according to patient size and/or use of iterative recon struction technique. FINDINGS: Lower Chest: Bilateral subpleural lower lobe atelectasis. There tiny pleural effusions. No pericardial effusion. Organs: The liver is fatty infiltrated. The spleen, gallbladder, pancreas and adrenal glands are norm al. The right kidney demonstrates a 2 mm nonobstructing inferior pole calculus. Extrarenal pelvis on the right. The left kidney demonstrates wedge-shaped region of decreased attenuation within the anter ior aspect of the inferior pole image #41. Differential includes sequela of developing pyelonephritis or renal infarct. There is mild adjacent inflammatory stranding. GI/Bowel: No CT findings of bowel obstruction. No acute bowel wall inflammatory change. The appendix is not visualized. Pelvis: The bladder is partially decompressed with resultant wall thickening. The rectum is normal. R ight ovarian cyst measures up to 3.1 cm previously 6.2 cm. Left ovarian cyst measures up to 2.8 cm. Peritoneum/Retroperitoneum: No free fluid or free air. No mesenteric or retroperitoneal lymphadenopat hy. Bones/Soft Tissues: There are no suspicious-appearing lytic or blastic osseous lesions. IMPRESSION: Wedge-shaped decreased attenuation left renal inferior pole anteriorly. Differential inc lude sequela of developing pyelonephritis versus renal infarct. Correlate urinalysis. Fatty liver. Nonobstructing right renal calculus 2 mm. RECOMMENDATIONS: 2.8 cm left ovarian simple-appearing cyst. No follow-up imaging is recommended. Reference: JACR 2019;17(2):[id number] Electronically signed by: Gildardo Miller MD 11/25/2021 6:57 AM CDT Due to temporary technical issues with the PACS/Fluency reporting system, reports are being signed by the in house radiologist without review as a courtesy to ensure prompt reporting. The interpreting r adiologist is fully responsible for the content of the report.
[2021-11-25] MEDS ORDERED: MORPHINE 2 MG/ML SYR IV PRN (12:35)
--- NOTE | 2021-11-25 14:00 | RAD REPORT ---
EXAM DESCRIPTION: RAD - Chest Single View - 11/25/2021 4:52 am COMPARISON: None. CLINICAL HISTORY: [facility] MAIN COUGH FINDINGS: A single AP view of the chest demonstrates a normal cardiomediastinal silhouette. No pneumothorax or pleural effusion. Mild bibasilar opacities. Osseous structures are intact. IMPRESSION: Mild bibasilar opacities may represent atelectasis or early infection. Electronically signed by: Major Whyte MD 11/25/2021 6:07 AM CDT Due to temporary technical issues with the PACS/Fluency reporting system, reports are being signed by the in house radiologist without review as a courtesy to ensure prompt reporting. The interpreting r adiologist is fully responsible for the content of the report.
[2021-11-25] MEDS ORDERED: CEFTRIAXONE 1,000 MG in NA CHLORIDE 0.9% 50 ML IVPB SCH (15:00)
[2021-11-25] MEDS: Ringers Lactate 1,000 ML IV SCH ×2 (15:44→18:46)
[2021-11-25 17:54] LABS: Urine Blood Trace-intact (Negative); Urine Glucose Negative (Negative); Urine Protein 2+ (Negative); Urine Specific Gravity 1.025 (1.005-1.030); Urine Urobilinogen 0.2 mg/dL (0.2-1.0); Urine pH 5.5 (5.0-7.0)
--- NOTE | 2021-11-25 17:55 | P.PN ---
Date of Service: 11/25/21 Called to bedside for hypotension. Blood pressures were in 70s/40s. Bolused current 1 L of Lactated Ringers' with partial response to 90s/60s. High clinical concern for septic shock so initiated transfer to ICU. General Surgery consulted for central line placement. Norepinephrine ordered to be started if MAP <60. Will broaden antibiotics from ceftriaxone to levofloxacin. Consulted ICU and spoke with Dr. Thomas, will continue to monitor closely.
[2021-11-25] MEDS ORDERED: NOREPINEPHRINE 4 MG in D5W 250 ML IV SCH (18:00)
[2021-11-25 18:08] LABS: Urine Appearance HAZY (Clear); Urine Bilirubin ND (Negative); Urine Color DK YELLOW (Yellow)
[2021-11-25 18:19] LABS: Urine Bacteria 20-50 /HPF (<20); Urine RBC <5 /HPF (NONE SEEN)
[2021-11-25] MEDS ORDERED: Levofloxacin 750mg IV 750 MG/150 ML BAG IV SCH (18:30)
[2021-11-25] MEDS ORDERED: LIDOCAINE 1% 20 ML MDV ONE (18:31)
--- NOTE | 2021-11-25 19:12 | RAD REPORT ---
EXAM DESCRIPTION: RAD - Chest Single View - 11/25/2021 6:55 pm CLINICAL HISTORY: Central line insertion (right IJ) Chest pain. COMPARISON: <Comparisons> FINDINGS: Portable technique limits examination quality. Right-sided venous catheter has been placed with its tip in the right atrium. No postprocedure pneumo thorax. No additional new finding. IMPRESSION: No postprocedure pneumothorax.
--- NOTE | 2021-11-25 19:41 | P.INFCA ---
Sepsis Focused Assessment - Focused Assessment Complete? Sepsis Focused Assessment Completed?: Yes - Sepsis Screen Result Septic Shock: Positive - Evaluation Current stage of sepsis: Septic shock (Pt was admitted for sepsis, became hypotensive during stay and was moved to ICU, she met criteria for Septic shock and was given additional IVF and a central line was placed by general surgery, BP has since improved without vasopressors. She has received more than 30cc/kg IVF bolus thus far.) - Vital Signs Reviewed: Yes Heart rate: 117 Blood Pressure: 103/67 Respiratory Rate: 93 O2 Sat by Pulse Oximetry: 93 - Examination Date exam was performed: 11/25/21 Time exam was performed: 18:00 Heart: Tachycardia Lungs: Clear bilaterally Peripheral pulses: 2+ Slightly diminished Peripheral pulse location: Radial Capillary refill: <2 Seconds Skin examination: Normal turgor
--- NOTE | 2021-11-25 19:43 | OP ---
Date of Procedure: 11/25/2021 Surgeon: Kenny Krause MD Reason: The patient needs urgent central line. History Of Present Illness: The patient is a 41-year-old female, who was transferred to the ICU from the floor for hypertension. She came in with severe sepsis secondary to UTI and requires medication s and has very poor IV access. Therefore, Surgery was called to place a central line. An informed c onsent was obtained from the patient. She understood risks, benefits, and alternatives and agreed to the procedure. Procedure In Detail: The patient was prepped and draped in the usual sterile fashion. Lidocaine 1% infiltrated locally. An 18-gauge needle was used to access the right IJ vein. Guidewire was passed. Tract dilated and Seldinger technique used and triple-lumen catheter placed and secured with 3-0 si lk. Catheter flushed with heparin and packed with heparin. Sterile dressing applied. The patient t olerated the procedure in stable condition and an x-ray has been ordered. /MODL Voice ID: [id number] Report ID: [id number]
[2021-11-25] MEDS: FENTANYL CITR 100 MCG/2 ML IV PRN (20:00)
[2021-11-25] MEDS: ENOXAPARIN 40 MG/0.4 ML SQ SCH (20:00)
[2021-11-25] MEDS: ONDANSETRON 4 MG/2 ML VIAL IV PRN (20:01)
[2021-11-25 20:28] LABS: Urine Appearance Cloudy (Clear); Urine Bilirubin Negative (Negative); Urine Blood Trace-lysed (Negative); Urine Color Yellow (Yellow); Urine Glucose Negative (Negative); Urine Protein 1+ (Negative); Urine Specific Gravity 1.015 (1.005-1.030); Urine Urobilinogen 0.2 mg/dL (0.2-1.0); Urine pH 6.5 (5.0-7.0)
[2021-11-25 20:33] LABS: Urine Bacteria <20 /HPF (<20); Urine RBC <5 /HPF (NONE SEEN)
[2021-11-26] MEDS: Ringers Lactate 1,000 ML IV SCH ×3 (02:05→20:02)
[2021-11-26] MEDS: ONDANSETRON 4 MG/2 ML VIAL IV PRN ×2 (04:05→10:26)
[2021-11-26] MEDS: FENTANYL CITR 100 MCG/2 ML IV PRN ×2 (04:05→09:00)
[2021-11-26 05:16] LABS: Hematocrit 32.3 % (36.0-45.0); Lymphocytes % 10.3 % (15.3-44.8); MCV 93.2 fL (80-100); MPV 9.2 fL (7.6-11.3); RBC Red Blood Cell Count 3.47 M/uL (3.86-4.86)
[2021-11-26 05:27] LABS: Albumin 2.3 g/dL (3.4-5.0); Bilirubin Total 0.5 mg/dL (0.2-1.0); Magnesium 1.5 mg/dL (1.8-2.4); Phosphorus 1.7 mg/dL (2.5-4.9); Potassium 3.8 mmol/L (3.5-5.1); Protein, Total 5.5 g/dL (6.4-8.2)
[2021-11-26] MEDS ORDERED: Levofloxacin 750mg IV 750 MG/150 ML BAG IV SCH (06:00)
[2021-11-26] MEDS ORDERED: Magnesium Sulfate 2gm IVPB 2 G/50 ML BAG IV ONE (06:19)
[2021-11-26] MEDS ORDERED: POTASSIUM CL SA 10 MEQ TAB PO ONE (06:19)
[2021-11-26] MEDS: POTASS/SODIUM PHOSPHATE 1 PKT POWD.PACK PO SCH ×3 (06:25→09:59)
[2021-11-26] MEDS: ENOXAPARIN 40 MG/0.4 ML SQ SCH (07:46)
--- NOTE | 2021-11-26 07:46 | P.CNS ---
Date of Consult: 11/26/21 Reason for Consult: Septic shock Chief Complaint: Acute Pyelonephritis History of Present Illness: Patient is 49 years of age admitted with right-sided abdominal pain pyelonephritis septic shock positive blood cultures she was given 4 L of IV fluids will having some discomfort on the right side doing a little better 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 -: Kidney stones -: Tumor removal from tailbone - Social History Alcohol use: No CD- Drugs: No Caffeine use: Yes Place of Residence: Home Review of Systems 10-point ROS is otherwise unremarkable General: Weakness Gastrointestinal: As per HPI Physical Examination Temp Pulse Resp BP Pulse Ox 97.2 F 96 H 13 95/78 100 11/26/21 04:00 11/26/21 06:00 11/26/21 06:00 11/26/21 06:00 11/26/21 06:00 General: Alert, Oriented x3, Mild distress Neck: Supple Respiratory: Clear to auscultation bilaterally Cardiovascular: No edema, Normal S1 S2 Gastrointestinal: Normal bowel sounds, Tenderness (Mild tenderness) - Problems (1) Septic shock Current Visit: Yes Status: Acute Plan: Patient is 41 years of age admitted with septic shock positive blood cultures gram-negative rods most likely E. coli continue with levofloxacin IV fluids white count is declining patient is on IV levofloxacin blood pressure is still slightly low CT of the abdomen does not show any obstruction history of recur rent nephrolithiasis
[2021-11-26] MEDS ORDERED: Ringers Lactate 1,000 ML IV ONE (07:49)
[2021-11-26] MEDS ORDERED: FENTANYL CITR 100 MCG/2 ML IV ONE (11:20)
[2021-11-26] MEDS ORDERED: KETOROLAC 30 MG/ML INJ IV PRN (11:22)
[2021-11-26] MEDS: PROMETHAZINE INJ 25 MG/ML AMP IV PRN ×3 (11:29→20:01)
[2021-11-26] MEDS: KETOROLAC 30 MG/ML INJ IV PRN ×2 (11:42→17:24)
--- NOTE | 2021-11-26 12:11 | P.CNS ---
Date of Consult: 11/26/21 Chief Complaint: Acute Pyelonephritis History of Present Illness: The patient is a 41-year-old female with a past medical history of peripheral neuropathy who presented to the emergency department secondary to abdominal/lower back pain. Patient unable to give history at bedside as she is in severe pain secondary to headache. Per chart review, the patient's pain started the day prior to being admitted. Patient was hypotensive on admission, pressures improved with fluid bolus. WBC on admission was 12.5. T-max on admission 100.6. Patient met sepsis criteria, was admitted to ICU. CT abdomen pelvis demonstrated a right-sided nonobstructing 2 mm renal stone as well as signs concerning for left-sided pyelonephritis. Urine analysis grossly positive, urine culture pending. Preliminary blood cultures growing gram- negative rods. Patient was empirically placed on IV Levaquin. Antibiotics adjusted to IV Zosyn. We will continue to monitor. 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 -: Kidney stones -: Tumor removal from tailbone - Social History Alcohol use: No CD- Drugs: No Caffeine use: Yes Place of Residence: Home Review of Systems 10-point ROS is otherwise unremarkable Physical Examination Temp Pulse Resp BP Pulse Ox 97.2 F 96 H 20 95/78 98 11/26/21 04:00 11/26/21 06:00 11/26/21 09:00 11/26/21 06:00 11/26/21 09:00 General: Oriented x3, Mild distress, Obese HEENT: Atraumatic Neck: Supple Respiratory: Clear to auscultation bilaterally, Normal air movement Cardiovascular: Regular rate/rhythm Gastrointestinal: No tenderness, No masses, No rebound Musculoskeletal: No clubbing, No swelling Integumentary: No rashes, No breakdown Urinary: Esteban catheter Conclusions/Impression: Antibiotics: Zosyn: urrent Levaquin: Assessment/plan Urosepsis -CT abdomen pelvis demonstrated left-sided pyelonephritis with right-sided 2 mm kidney stone -Urinalysis grossly positive, urine culture pending Preliminary blood cultures growing GNR -Continue IV Zosyn at this time Anemia Continue to monitor H&H Plan of care discussed with Dr. natarajan Thank you for consultation
--- NOTE | 2021-11-26 12:18 | RAD REPORT ---
EXAM DESCRIPTION: CT - Head Brain Wo Cont - 11/26/2021 12:11 pm CLINICAL HISTORY: Headache COMPARISON: None. TECHNIQUE: Computed axial tomography of the head was obtained. IV contrast was not requested. All CT scans are performed using dose optimization technique as appropriate and may include automated exposure control or mA/KV adjustment according to patient size. FINDINGS: An intracranial bleed is not seen . The ventricles are normal in caliber. No significant hypodense areas within the brain visualized No extra-axial fluid collection is noted. Fluid within the sinuses/ mastoids is not seen. IMPRESSION: No acute intracranial abnormality is seen. If patient's symptoms persist MRI of the bra in would be recommended.
--- NOTE | 2021-11-26 12:41 | P.PN ---
Subjective Date of Service: 11/26/21 Chief Complaint: Acute Pyelonephritis Yesterday evening, she became hypotensive to the 70s/40s, which was highly concerning for septic shock. She was transferred to the ICU and has received a total of 5 L of IV fluids since admission. Her BP has remained soft, but stable in the 90s-100s/60s-70s. She also had a significant sharp headache this afternoon above her left eye, which resolved with phenergan, ketorolac, and magnesium. Review of Systems General: Fever, Chills Eyes: Unremarkable ENT: Unremarkable Respiratory: Unremarkable Cardiovascular: Unremarkable Gastrointestinal: Nausea, Abdominal Pain Genitourinary: Dysuria Musculoskeletal: Back Pain Integumentary: Unremarkable Neurological: Unremarkable Physical Examination - Vital Signs Temperature: 97.4 F Blood Pressure: 107/79 Pulse: 111 Respirations: 17 Pulse Ox (%): 100 - Physical Exam General: Alert, Moderate distress HEENT: Atraumatic, Mucous membr. moist/pink Neck: Supple, Without JVD or thyroid abnormality Respiratory: Clear to auscultation bilaterally, Normal air movement Cardiovascular: No edema, No gallops, No rubs, No murmurs, Other (tachycardic rate, regular rhythm) Gastrointestinal: Normal bowel sounds, Non-distended, No rebound, No guarding, Tenderness (minimal) Musculoskeletal: No clubbing, No swelling Integumentary: No rashes Neurological: Normal speech, Normal tone, Normal affect - Studies Microbiology Data (last 24 hrs): 11/25/21 05:00 Blood - Blood Blood Culture Gram Stain - Final Medications List Reviewed: Yes Assessment And Plan - Plan # Septic Shock suspect secondary to Acute Left Pyelonephritis with Gram-Negative Bacteremia # Right-Sided Abdominal Pain - suspect due to Nonobstructing Renal Calculus (2 mm) She meets sepsis criteria based on temperature > 100.9 F, HR > 90 bpm, and WBC > 12,000 and the suspected source is acute pyelonephritis. Septic shock is suspected based on hypotension with SBP < 90 mmHg. - Transferred to ICU - Consulted Senior Sharepoint Architect and spoke with Dr. Bee - recommendations appreciated - Sepsis order set was initiated - Initial Lactate after new time zero was 0.9 - 1/2 blood cultures returned positive for gram-negative rods - Consulted Infectious Diseases - recommended piperacillin-tazobactam - In regards to fluids: - 30 mL/kg of IV fluids was given based on her ideal body weight. # Migraine Headaches # Peripheral Neuropathy secondary to Benign Tumor s/p Removal - Resume home amitryptiline, gabapentin, tizanidine as blood pressure allows - PRN symptom control for migraine headaches # Obesity - BMI 37.1 kg/m2 # Fatty Liver - Follow-up with PCP for further evaluation Wesly Lopez MD Discharge Plan: Home Plan to discharge in: Greater than 2 days - Code Status/Comfort Care Code Status Assessed: Yes Code Status: Full Code Physician Review: Patient Assessed, Agree with Above Assessment and Plan Critical Care: Yes
[2021-11-26] MEDS: PIPER TAZO 3.375 GM in NA CHLORIDE 0.9% 100 ML IV SCH (16:57)
[2021-11-26] MEDS ORDERED: TIZANIDINE 4 MG TABLET PO PRN (19:47)
[2021-11-26] MEDS: GABAPENTIN 400 MG CAP PO PRN (20:24)
[2021-11-26] MEDS: AMITRIPTYLINE 50 MG TAB PO SCH (20:24)
[2021-11-26] MEDS ORDERED: TIZANIDINE 4 MG TABLET PO SCH (21:00)
[2021-11-26] MEDS ORDERED: HYDROCODONE/APAP 5/325 MG TAB ONE (22:20)
[2021-11-27] MEDS: PIPER TAZO 3.375 GM in NA CHLORIDE 0.9% 100 ML IV SCH ×2 (00:17→09:00)
[2021-11-27] MEDS: HYDROCODONE/APAP 5/325 MG TAB PO PRN ×3 (03:46→21:00)
[2021-11-27] MEDS: PROMETHAZINE INJ 25 MG/ML AMP IV PRN ×2 (03:47→10:59)
[2021-11-27] MEDS: Ringers Lactate 1,000 ML IV SCH ×3 (04:35→21:04)
[2021-11-27 05:10] LABS: Absolute Lymphocytes (CBC) 1.1 K/uL (0.7-4.9); Hematocrit 33.3 % (36.0-45.0); MCV 90.7 fL (80-100); MPV 9.4 fL (7.6-11.3); RBC Red Blood Cell Count 3.67 M/uL (3.86-4.86)
[2021-11-27 05:30] LABS: Albumin 2.4 g/dL (3.4-5.0); Bilirubin Total 0.5 mg/dL (0.2-1.0); Magnesium 1.8 mg/dL (1.8-2.4); Potassium 3.6 mmol/L (3.5-5.1); Protein, Total 5.9 g/dL (6.4-8.2)
[2021-11-27 06:35] VITALS: BMI 39.9
[2021-11-27] MEDS ORDERED: MAGNESIUM SULFATE 1 gm IVPB 1 GM/100 ML BAG IV ONE (06:37)
[2021-11-27] MEDS ORDERED: POTASSIUM PHOS IN 0.9 % NACL 15 MMOL/250 ML BAG IV ONE ×2 (06:38→09:15)
[2021-11-27] MEDS ORDERED: PIPERACIL/TAZO 3.375 GM VIAL IV ONE (08:13)
[2021-11-27] MEDS: ENOXAPARIN 40 MG/0.4 ML SQ SCH (09:54)
--- NOTE | 2021-11-27 10:32 | P.PN ---
Subjective Date of Service: 11/27/21 Chief Complaint: Acute Pyelonephritis This morning, she appears to have improved significantly from a clinical standpoint. She is alert and in good spirits. She reports that her headache is minimal to none. Her urinary symptoms and abdominal/flank pain are also improving. Review of Systems General: Unremarkable Eyes: Unremarkable ENT: Unremarkable Respiratory: Unremarkable Cardiovascular: Unremarkable Gastrointestinal: Abdominal Pain (minimal) Genitourinary: Dysuria (improved) Musculoskeletal: Back Pain (minimal) Integumentary: Unremarkable Neurological: Unremarkable Physical Examination - Vital Signs Temperature: 98.7 F Blood Pressure: 96/72 Pulse: 102 Respirations: 17 Pulse Ox (%): 99 - Physical Exam General: Alert, In no apparent distress, Oriented x3 HEENT: Atraumatic, Mucous membr. moist/pink Neck: Supple, Without JVD or thyroid abnormality Respiratory: Clear to auscultation bilaterally, Normal air movement Cardiovascular: No edema, Regular rate/rhythm, No gallops, No rubs, No murmurs Gastrointestinal: Normal bowel sounds, Soft and benign, No tenderness, No rebound, No guarding Musculoskeletal: No clubbing, No swelling Integumentary: No rashes Neurological: Normal speech, Normal affect - Studies Microbiology Data (last 24 hrs): 11/25/21 19:50 Catheterized Urine [place] Count - Final No growth. 11/25/21 19:50 Catheterized Urine - Final No growth. 11/25/21 05:00 Blood - Blood Aerobic Blood Culture - Final Gram Neg Omar Escherichia Coli 11/25/21 05:00 Blood - Blood Blood Culture Gram Stain - Final Medications List Reviewed: Yes Assessment And Plan - Plan # Septic Shock suspect secondary to Acute Left Pyelonephritis with E. Coli Bacteremia # Right-Sided Abdominal Pain - suspect due to Nonobstructing Renal Calculus (2 mm) She met septic shock criteria based on temperature > 100.9 F, HR > 90 bpm, and WBC > 12,000 and the suspected source is acute pyelonephritis. Septic shock is suspected based on hypotension with SBP < 90 mmHg. - Significantly improved today - Will transfer out of ICU - Consulted Outside Salesman and spoke with Dr. Bee - recommendations appreciated - Sepsis order set was initiated - Initial Lactate after new time zero was 0.9 - 1/2 blood cultures returned positive for gram-negative rods - Consulted Infectious Diseases - recommended piperacillin-tazobactam - In regards to fluids: - 30 mL/kg of IV fluids was given based on her ideal body weight. 11/27: Significantly improved today, sensitivities from E.Coli have returned. Will switch to levofloxacin and repeat blood cultures. She would like to be discharged tomorrow if possible. Will monitor today. # Migraine Headaches # Peripheral Neuropathy secondary to Benign Tumor s/p Removal - Continue home amitryptiline, gabapentin, tizanidine as blood pressure allows - PRN symptom control for migraine headaches # Obesity - BMI 37.1 kg/m2 # Fatty Liver - Follow-up with PCP for further evaluation Wesly Lopez MD Physician Review: Patient Assessed, Agree with Above Assessment and Plan
[2021-11-27] MEDS: GABAPENTIN 400 MG CAP PO PRN ×2 (10:52→21:00)
[2021-11-27] MEDS ORDERED: Levofloxacin500mg IV 500 MG/100 ML BAG IV SCH (11:00)
--- NOTE | 2021-11-27 12:37 | P.PN ---
Subjective Date of Service: 11/27/21 Chief Complaint: Acute Pyelonephritis Patient seen and examined at bedside, feeling much better today. Hemodynamically stable, afebrile. WBC within normal range. Review of Systems 10-point ROS is otherwise unremarkable Physical Examination - Vital Signs Temperature: 97.7 F Blood Pressure: 116/87 Pulse: 106 Respirations: 19 Pulse Ox (%): 96 - Studies Microbiology Data (last 24 hrs): 11/25/21 19:50 Catheterized Urine [place] Count - Final No growth. 11/25/21 19:50 Catheterized Urine - Final No growth. 11/25/21 05:00 Blood - Blood Aerobic Blood Culture - Final Gram Neg Omar Escherichia Coli 11/25/21 05:00 Blood - Blood Blood Culture Gram Stain - Final Medications List Reviewed: Yes Assessment And Plan - Plan General: Oriented x3, alert, oriented, Obese HEENT: Atraumatic Neck: Supple Respiratory: Clear to auscultation bilaterally, Normal air movement Cardiovascular: Regular rate/rhythm Gastrointestinal: No tenderness, No masses, No rebound Musculoskeletal: No clubbing, No swelling Integumentary: No rashes, No breakdown Urinary: Esteban catheter Conclusions/Impression: Antibiotics: Zosyn: 6current Levaquin: / Assessment/plan Urosepsis -CT abdomen pelvis demonstrated left-sided pyelonephritis with right-sided 2 mm kidney stone -Urinalysis grossly positive, urine culture showed no growth -Blood cultures grew E. coli. Recommend discharging patient on oral Augmentin x2 weeks. Advised patient to take the medication with food and to take a probiotic for duration of antibiotic treatment. Anemia Continue to monitor H&H Plan of care discussed with Dr. natarajan Thank you for consultation Physician Review: Patient Assessed, Agree with Above Assessment and Plan
[2021-11-27] MEDS: AMOX/K CLAV 875 MG TAB PO SCH (20:59)
[2021-11-27] MEDS: AMITRIPTYLINE 50 MG TAB PO SCH (21:00)
[2021-11-28 04:39] VITALS: BP 95/80
[2021-11-28 05:08] LABS: Absolute Lymphocytes (CBC) 1.2 K/uL (0.7-4.9); Hematocrit 32.5 % (36.0-45.0); Lymphocytes % 20.8 % (15.3-44.8); MCV 90.7 fL (80-100); MPV 8.8 fL (7.6-11.3); RBC Red Blood Cell Count 3.59 M/uL (3.86-4.86)
[2021-11-28 05:24] LABS: Albumin 2.3 g/dL (3.4-5.0); Bilirubin Total 0.3 mg/dL (0.2-1.0); Potassium 3.5 mmol/L (3.5-5.1)
[2021-11-28] MEDS: Ringers Lactate 1,000 ML IV SCH (05:58)
[2021-11-28] MEDS: HYDROCODONE/APAP 5/325 MG TAB PO PRN (05:58)
[2021-11-28] MEDS: PROMETHAZINE INJ 25 MG/ML AMP IV PRN (06:13)
[2021-11-28 06:21] LABS: Magnesium 1.7 mg/dL (1.8-2.4); Phosphorus 2.7 mg/dL (2.5-4.9)
[2021-11-28] MEDS ORDERED: MAGNESIUM SULFATE 1 gm IVPB 1 GM/100 ML BAG IV ONE (06:25)
[2021-11-28] MEDS ORDERED: POTASSIUM 25 MEQ EFFERV TAB PO ONE (07:00)
--- NOTE | 2021-11-28 07:57 | P.DS ---
Admission Date: 11/25/21 Discharge Date: 11/28/21 Primary Care Provider: Dr. Banks Disposition: ROUTINE DISCHARGE Discharge Condition: GOOD Reason for Admission: Acute Pyelonephritis Consultations: 1. Critical Care Medicine 2. Infectious Diseases Hospital Course: DIAGNOSES: # Septic Shock suspect secondary to Acute Left Pyelonephritis with E. 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 Upon presentation, her vital signs were notable for a heart rate of 139 bpm and a temperature of 100.6 F. Her laboratory studies were notable for a WBC count of 12,500. Urinalysis revealed positive nitrite, 3+ leukocyte esterase, and 1+ protein. Blood cultures x 2 were obtained. Chest x-ray revealed, "mild bibasilar opacities may represent atelectasis or early infection." CT abdomen/pelvis revealed, "wedgeshaped decreased attenuation left renal inferior pole anteriorly. Differential includes sequela of developing pyelonephritis versus renal infarct. Correlate urinalysis. Fatty liver. Nonobstructing right renal calculus 2 mm." In the Emergency Department, she was given piperacillintazobactam and levofloxacin. She was admitted to the General Internal Medicine service for further evaluation. Shortly after admission, she became hypotensive with blood pressures in the 70s/40s. She was transferred to the Intensive Care Unit. Critical Care Medicine and Infectious Diseases were consulted due to the development of septic shock. She was treated with IV fluid boluses and IV antibiotics per Infectious Diseases, with improvement of her symptoms. She did not ever require norepinephrine. 1 of 2 blood cultures returned positive for Escherichia Coli. With the assistance of Infectious Diseases, she was transitioned to oral amoxicillinclavulanate for 14 days at discharge. I have requested that she make a close outpatient follow-up appointment with her primary care provider, and she has scheduled appointment with Dr. Banks on 12/01/2021 at 13:00. On 11/28/2021, she was seen on morning rounds and deemed medically stable for discharge. She was discharged with a follow-up appointment with Dr. Banks as mentioned above. She was provided a prescription for amoxicillin-clavulanate. She and her family members were given the opportunity to ask questions and reported no further questions. Furthermore, all questions were answered to the best of my ability. Today, I personally spent 20 minutes with her, of which greater than 50% of the time was spent in patient education, counseling, and coordination of care as described above. Vital Signs/Physical Exam: Temp Pulse Resp BP Pulse Ox 96.9 F 92 H 18 95/80 96 11/28/21 04:06 11/28/21 04:06 11/28/21 05:58 11/28/21 04:06 11/28/21 05:58 General: Alert, In no apparent distress, Oriented x3 HEENT: Atraumatic, Mucous membr. moist/pink Neck: Supple, Without JVD or thyroid abnormality Respiratory: Clear to auscultation bilaterally, Normal air movement Cardiovascular: No edema, Regular rate/rhythm, No gallops, No rubs, No murmurs Gastrointestinal: Normal bowel sounds, Soft and benign, No tenderness, No rebound, No guarding Musculoskeletal: No clubbing Integumentary: No rashes Neurological: Normal speech, Normal affect Laboratory Data at Discharge: WBC 5.6 K/uL (4.3-10.9) D 11/28/21 04:50 Hgb 11.2 g/dL (12.0-15.0) L 11/28/21 04:50 Hct 32.5 % (36.0-45.0) L 11/28/21 04:50 Plt Count 183 K/uL (152-406) 11/28/21 04:50 Sodium 139 mmol/L (136-145) 11/28/21 04:50 Potassium 3.5 mmol/L (3.5-5.1) 11/28/21 04:50 BUN 5 mg/dL (7-18) L 11/28/21 04:50 Creatinine 0.46 mg/dL (0.55-1.3) L 11/28/21 04:50 Glucose 89 mg/dL (74-106) 11/28/21 04:50 Phosphorus 2.7 mg/dL (2.5-4.9) 11/28/21 04:50 Magnesium 1.7 mg/dL (1.8-2.4) L 11/28/21 04:50 Total Bilirubin 0.3 mg/dL (0.2-1.0) 11/28/21 04:50 AST 16 U/L (15-37) 11/28/21 04:50 ALT 34 U/L (12-78) 11/28/21 04:50 Alkaline Phosphatase 64 U/L (45-117) 11/28/21 04:50 Lipase 169 U/L (73-393) 11/25/21 04:15 Home Medications: Amitriptyline HCl 150 mg PO BEDTIME 11/25/21 Gabapentin 800 mg PO TID 11/25/21 Tizanidine [Zanaflex*] 4 mg PO BEDTIME 11/25/21 Amox/Clavulanate [Augmentin 875-125 Tab*] 875 mg PO BID 14 Days #28 tab 11/28/21 New Medications: Amox/Clavulanate [Augmentin 875-125 Tab*] 875 mg PO BID 14 Days #28 tab Physician Discharge Instructions: PROBLEM: Septic Shock; Pyelonephritis GOAL: Clear understanding of disease process INSTRUCTIONS: 1. Please follow-up with your PCP (Dr. Banks) on 12/01/2021 at 01:00 PM 2. If symptoms worsen, please go to the ER. 3. Take medication as prescribed. 4. If you have any questions regarding your hospital stay, feel free to call . Diet: Regular Activity: Ad sukhdev DME DME: Date Ordered: Name of Company: [employer] Services Needed: None Name of Company: Date or Referral: IMMUNIZATION Influenza Vaccine Indicated: Influenza Vaccine Given: Date Given: Pneumonia Vaccine Indicated: No Pneumonia Vaccine Given: Date Given: Followup: NONE,NONE [Primary Care Provider] - 12/01/21 1:00 pm (Dr. Banks ) Time spent managing pt's care (in minutes): 20
[2021-11-28] MEDS: AMOX/K CLAV 875 MG TAB PO SCH (08:55)
[2021-11-28] MEDS: ENOXAPARIN 40 MG/0.4 ML SQ SCH (09:00)
[2021-11-28 09:19] VITALS: O2SAT 99
[2021-11-28 09:54] VITALS: TEMP 97.3
--- OUTSIDE RECORDS SUMMARY | 2021-12-10 12:21 | XMS REPORT | Continuity of Care Document ---
:[address] [facility] t Address [address] [place] [address] Care Team Providers Name Role Phone [phone] Primary Care Physician Unavailable Maria M Banks Attending Clinician Unavailable SYSTEM, NOT IN Attending Clinician Unavailable JOSE Attending Clinician Unavailable OSKAR Attending Clinician Unavailable Real MARTINS G Attending Clinician Walter MARTINS C Attending Clinician EARLE Attending Clinician Unavailable JOE Attending Clinician Unavailable You LANGSTON Attending Clinician Unavailable OLIVE Attending Clinician Unavailable Payers Payer Name Policy Type Policy Number Effective Date Expiration Date [facility] [id number] 2018 2019 PPO 00:00:00 00:00:00 Problems Condition Condition Condition Status Onset Resolution Last Treating Co mments Source Name Details Category Date Date Treatment Clinician Date Lytic Lytic Disease Active [facility]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 of 01-22 ity of bone on bone on 00:00: [place] X-ray X-ray 00 [facility] Allergies, Adverse Reactions, Alerts Allergy Allergy Status Severity Reaction(s) Onset Inactive Treating Comm ents Source Name Type Date Date Clinician Tetanus Propensi Active Toxoids ty to 7-11 - CLASS adverse 00:00: reaction 00 to drug Diph,Per Drug Active 2018-05 Univers tus(Acel Allergy 2-31 ity of ),Tet,Po 00:00: [place] l (Pf) 00 MD Mclaughlin n [facility] Family History Family Member Diagnosis Comments Start Date Stop Date Source Natural mother Melanoma [facility] MD [facility] Paternal grandfather Colon cancer [facility] [place] [facility] Natural [facility] Maternal aunt -Unknown cancer Univer sity [facility] Maternal cousin Ovarian cancer Unive rslilibeth [facility] Dave [facility] Social History Social Habit Start Date Stop Date Quantity Comments Source Alcohol intake 2019-07-04 2019-07-04 Lifetime [facility] of 00:00:00 00:00:00 non-drinker [place] MD Pedro Luis red (finding) [facility] Tobacco use and 2019-05-23 2019-05-23 Smokeless tobacco Un iversity of exposure 00:00:00 00:00:00 non-user [place] MD [facility] Sex Assigned At [birth year] [facility] 00:00:00 00:00:00 Smoking Status Start Date Stop Date Source Unknown if ever smoked [facility] Never smoked tobacco [facility] Medications Ordered Filled Start Stop Current Ordering Indication Dosage Frequency Signature Comments Components Source Medication Medication Date Date Medication? Clinician (SIG) Name Name propranolol 2021-0 No 1mg 80 mg 7-11 tablet 00:00: 00 amitriptyli 2021-0 No 1mg ne 150 mg 7-11 tablet 00:00: 00 tizanidine 2021-0 No 1mg 4 mg tablet -11 00:00: 00 gabapentin 2021-0 No 1mg 800 mg 7-11 tablet 00:00: 00 Dexamethaso 2021-0 No 2mg Twice A CHR ISTU ne 1-11 Day S (Decadron) 00:17: Health 2 Mg TAB 00 Tramadol 2021-0 No 50mg Every 6 BIB U Hcl 1-11 Hours S (Ultram) 50 00:17: Health Mg TAB 00 etodolac 2019-05 Yes etodolac Unive rs (LODINE) 0-31 500 mg ity of 500 MG 03:42: tablet David tablet 39 Take 1 tablet Anderso twice a n day by Cancer oral route Center with meals for 30 days. meloxicam Yes Myofascial 15mg Take 1 Univers (Mobic) 15 2-27 pain tablet (15 ity of mg tablet 00:00: mg) by [place] 00 mouth MD daily. [facility] gabapentin Yes Myofascial 300mg Take 1 Univers (NEURONTIN) 2-27 pain capsule ity o f 300 mg 00:00: (300 mg) [place] capsule 00 by mouth MD twice Anderso daily. n [facility] Center baclofen Yes Myofascial 10mg Take 1 U nivers (LIORESAL) 2-18 pain tablet (10 ity of 10 mg 00:00: mg) by [place] tablet 00 mouth MD every 8 Anderso (eight) n hours as Cancer needed for Center muscle spasms (pain). acetaminoph Yes TAKE ONE Un jim en-codeine 1-08 (1) ity of (TYLENOL 00:00: TABLET(S) [place] #3) 300 00 BY MOUTH MD mg-30 mg EVERY Anderso tablet EIGHT n HOURS. Cancer Center flurandreno 2018-05 Yes APPLY 1 TO Univers lide 2-16 2 ML ity of (CORDRAN) 00:00: TOPICALLY [place] as 0.05 % 00 TO MD lotion AFFECTED Anderso AREA(S) 3 n TO 4 TIMES Cancer A DAY Center DIRECTED FOR INFLAMMATI ON lidocaine 2018-05 Yes APPLY 2 TO Un jim (XYLOCAINE) 2-16 3 GMS ity of 5% ointment 00:00: TOPICALLY [place] 00 TO THE MD AFFECTED Anderso AREA(S) 3 n TO 4 TIMES Cancer DAILY Center NEEDED FOR PAIN eszopiclone 2018-05 Yes TAKE ONE Un jim (LUNESTA) 2 2-08 (1) ity of mg tablet 00:00: TABLET(S) [place] 00 BY MOUTH [facility] Center ondansetron Yes 4mg Dissolve 4 Univers (ZOFRAN-ODT 3-14 mg on the ity of ) 4 mg 00:00: tongue. [place] disintegrat MD ing tablet [facility] [place] omeprazole Yes Univers (PriLOSEC 1- ity of OTC) 20 MG 00:00: [place] tablet 00 MD [facility] Vital Signs Vital Name Observation Time Observation Value Comments Source BP Systolic 2021-12-01 13:33:00 120 mm[Hg] BP Diastolic 2021-12-01 13:33:00 84 mm[Hg] Weight Measured 2021-12-01 13:33:00 172.00 pounds Height Measured 2021-12-01 13:33:00 58.66 inches Body Temperature 2021-12-01 13:33:00 98.40 degrees Heart Rate 2021-12-01 13:33:00 122.00 /min Respiratory Rate 2021-12-01 13:33:00 18.00 /min BP Diastolic 2021-06-03 00:32:00 85 mm[Hg] [facility] BP Systolic 2021-06-03 00:32:00 132 mm[Hg] [facility] Heart Rate 2021-06-03 00:32:00 92 /min [facility] Respiratory rate 2021-06-03 00:32:00 20 /min [employer] Body Temperature 2021-06-03 00:32:00 96.7 [degF] [employer] BP Diastolic 2021-06-02 20:20:00 90 mm[Hg] [facility] BP Systolic 2021-06-02 20:20:00 129 mm[Hg] [facility] Heart Rate 2021-06-02 20:20:00 122 /min [facility] Respiratory rate 2021-06-02 20:20:00 20 /min [employer] Body Temperature 2021-06-02 20:20:00 96.7 [degF] [facility] [employer] BP Diastolic 2021-06-02 20:11:00 90 mm[Hg] [facility] BP Systolic 2021-06-02 20:11:00 129 mm[Hg] [facility] Heart Rate 2021-06-02 20:11:00 122 /min [facility] Respiratory rate 2021-06-02 20:11:00 20 /min [facility] Body Temperature 2021-06-02 20:11:00 96.7 [degF] [facility] Procedures Procedure Date / Time Performing Clinician Source Performed Computed tomography of 2021-06-02 00:00:00 [facility] pelvis with contrast PATHOLOGY OUTSIDE 2021-04-23 00:00:00 Demian Watson [facility] INTERPRETATION MD [facility] er Center Plan of Care Planned Activity Planned Date Details Comments Source Future Scheduled 2021-11-26 COVID-19 Vaccination Uni [facility] Test 06:39:57 (#1) [code = COVID-19 MD And [facility] Vaccination (#1)] Center Goal Plan of Care Note [code = 68829-0] Goal Plan of Care Note [code = 69297-4] Goal Plan of Care Note [code = 56982-3] Goal Plan of Care Note [code = 31331-9] Goal Plan of Care Note [code = 30544-4] Goal Plan of Care Note [code = 96667-4] Goal Plan of Care Note [code = 14802-5] Goal Plan of Care Note [code = 06096-0] Goal Plan of Care Note [code = 48188-2] Goal Plan of Care Note [code = 58568-2] Encounters Start End Encounter Admission Attending Care Care Encounter Source Date/Time Date/Time Type Type Clinicians Facility Department ID 2021-12-02 Outpatient aDrren, STLMLC STLMLC [id number] Common 14:30:04 [facility] [address] [facility] 2021-06-02 Outpatient [facility] [id number] [facility] 19:49:13 -[id number] [facility] 2021-03-16 Outpatient [facility] [id number] [facility] 23:47:19 -[id number] [facility] 2020-08-29 Outpatient SUE VANCE MDA [id number] 11:45:20 PROVIDER George reed 2019-12-18 Outpatient SUE GARCIA MDA [id number] 14:22:03 KARRIE reed 2018-10-10 [facility] [id number] [facility] 13:30:00 2021-12-02 2021-12-02 ambulatory STLMLC STLC [id number] Common 00:00:00 00:00:00 [facility] 2021-12-01 2021-12-01 Outpatient [id number] 00:00:00 00:00:00 Visit [id number] 2021-06-02 2021-06-03 Emergency ER NATA SCHMITT [id number] [facility] 19:48:00 00:20:00 [id number] [facility] 2021-06-02 2021-06-03 Departed VIVIAN LANCASTER [id number] [facility] 19:48:00 00:20:[address] 2021-05-01 2021-05-01 Lab [place] [id number] [facility] 00:00:00 00:00:00 Demian Dow [id number] julio [id number] [place] .[id number] [facility] .[facility] 2020-09-26 2020-09-26 Outpatient BLANCHE OG, MDA MDA [id number] 11:28:40 11:28:40 VIVIAN reed 2020-09-17 2020-09-17 Outpatient BLANCHE DIAZ, MDA MDA [id number] 21:28:44 21:28:44 CHET reed 2020-09-17 2020-09-17 Outpatient BLANCHE DIAZ, MDA MDA [id number] 21:28:41 21:28:41 CHET reed 2020-08-15 2020-08-15 Outpatient TONNY CROCKETT [id number] [facility] 13:28:00 13:28:00 TOVA [id number] [facility] 2020-07-17 2020-07-17 Outpatient TONNY CROCKETT [id number] [facility] 10:14:00 10:14:00 TOVA [id number] [facility] 2020-01-16 2020-01-16 Outpatient BLANCHE DIAZ MDA MDA [id number] MD 00:00:00 00:00:00 CHET reed 2020-01-09 2020-01-09 Outpatient BLANCHE SCHAEFER MDA MDA [id number] 00:00:00 00:00:00 STACEY reed 2019-12-19 2019-12-19 Outpatient BLANCHE DIAZ MDA MDA [id number] MD 00:00:00 00:00:00 CHET reed 2019-12-19 2019-12-19 Outpatient BLANCHE SCHAEFER MDA MDA [id number] MD 00:00:00 00:00:00 STACEY reed 2019-12-19 2019-12-19 Outpatient BLANCHE DIAZ MDA MDA [id number] MD 00:00:00 00:00:00 CHET reed Results Test Description Test Time Test Comments Results Result Comments Source CBC W/AUTO DIFF WITH PLATELETS 2021-12-02 05:19:50 Test Item Value Reference Range Interpretation Comme nts WBC (test code = 1001) 8.3 K/UL 3.5-11.0 RBC (test code = 1002) 4.56 M/UL 3.80-5.40 HEMOGLOBIN (test code = 14.3 G/DL 11.5-15.5 1003) HEMATOCRIT (test code = 40.8 % 34.0-45.0 1004) MCV (test code = 1005) 89.5 fL 80.0-99.0 MCH (test code = 1006) 31.4 PG 25.0-33.0 MCHC (test code = 1007) 35.0 G/DL 31.0-36.0 RDW (test code = 1038) 13.4 % 11.5-15.0 NEUTROPHILS (test code = 65.1 % 1008) LYMPHOCYTES (test code = 25.5 % 1010) MONOCYTES (test code = 1011) 6.1 % EOSINOPHILS (test code = 1.8 % 1012) BASOPHILS (test code = 1013) 0.4 % IMMATURE GRANULOCYTES (test 1.1 % code = 1036) NUCLEATED RBCS (test code = 0.0 /100 WBC'S See_Comment [Automated message] The 1065) system which ge nerated this result transmit jarret reference range : 0.0. The reference range was not used to interpr et this result as cosme l/abnormal. PLATELET COUNT (test code = 393 K/UL 121-538 1539) ABSOLUTE NEUTROPHILS (test 5.40 K/UL 1.50-7.50 code = 1066) ABSOLUTE LYMPHOCYTES (test 2.12 K/UL 1.00-4.00 code = 1067) ABSOLUTE MONOCYTES (test 0.51 K/UL 0.20-1.00 code = 1068) ABSOLUTE EOSINOPHILS (test 0.15 K/UL 0.00-0.50 code = 1040) ABSOLUTE BASOPHILS (test 0.03 K/UL 0.00-0.20 code = 1069) ABS IMMATURE GRANULOCYTES 0.09 K/UL 0.00-0.10 (test code = 1020) ABS NUCLEATED RBCS (test 0.00 K/UL 0.00-0.11 code = 87302) COMPREHENSIVE METABOLIC [id number] 03:43:27 Test Item Value Reference Range Interpretation Comments GLUCOSE (test code = 86 MG/DL 70-99 2216) BUN (test code = 7 MG/DL 6-20 2207) CREATININE (test 0.89 MG/DL 0.60-1.30 code = 221) eGFR (2020 CKD-EPI) 84 >60 (test code = 73310) ML/MIN/1.73 CALC BUN/CREAT (test 8 RATIO 6-28 code = 2235) SODIUM (test code = 139 MEQ/L 303-977 1489) POTASSIUM (test code 4.7 MEQ/L 3.5-5.4 = 2227) CHLORIDE (test code 99 MEQ/L 95-107 = 2214) CARBON DIOXIDE (test 25 MEQ/L 19-31 code = 2205) CALCIUM (test code = 11.2 MG/DL 8.5-10.5 H 2208) PROTEIN, TOTAL (test 7.7 G/DL 6.1-8.3 code = 222) ALBUMIN (test code = 4.6 G/DL 3.5-5.2 2200) CALC GLOBULIN (test 3.1 G/DL 1.9-3.7 code = 2240) CALC A/G RATIO (test 1.5 RATIO 1.0-2.6 code = 2234) BILIRUBIN, TOTAL 0.2 MG/DL See_Comment [Automated message] (test code = 2207) The syste m which generated this result transmitted ref erence range: <=1.2. T he reference range was not used to int erpret this result as normal/abnormal . ALKALINE PHOSPHATASE 92 U/L 40-112 (test code = 220) AST (test code = 69 U/L 9-40 H 2218) ALT (test code = 76 U/L 5-40 H UNLE SS 2219) OTHERWISE INDIC ATED, ALL TESTING PER FORMED ATCLINICAL PATH OLOGY LABORATORIES, [place]. [address] [place] [address] LABORATORY DIRE CTOR: RACHEAL COATS M.D. CLIA NUMBER [id number] CAP ACCREDITATION N O. [id number] COMPREHENSIVE METABOLIC [id number] 00:00:00 Test Item Value Reference Range Interpretation Comments GLUCOSE (test code = 2217) 86 MG/DL BUN (test code = 2208) 7 MG/DL CREATININE (test code = 2214) 0.89 MG/DL eGFR (2020 CKD-EPI) (test code 84 ML/MIN/1.73 = 86277) CALC BUN/CREAT (test code = 8 RATIO 2235) SODIUM (test code = 2231) 139 MEQ/L POTASSIUM (test code = 2228) 4.7 MEQ/L CHLORIDE (test code = 2215) 99 MEQ/L CARBON DIOXIDE (test code = 25 MEQ/L 2205) CALCIUM (test code = 2209) 11.2 MG/DL PROTEIN, TOTAL (test code = 7.7 G/DL 2228) ALBUMIN (test code = 2201) 4.6 G/DL CALC GLOBULIN (test code = 3.1 G/DL 2240) CALC A/G RATIO (test code = 1.5 RATIO 2234) BILIRUBIN, TOTAL (test code = 0.2 MG/DL 7) ALKALINE PHOSPHATASE (test 92 U/L code = 2204) AST (test code = 2218) 69 U/L ALT (test code = 2219) 76 U/L CBC W/AUTO [id number] 00:00:00 Test Item Value Reference Range Interpretation Comments WBC (test code = 1001) 8.3 K/UL RBC (test code = 1002) 4.56 M/UL HEMOGLOBIN (test code = 1003) 14.3 G/DL HEMATOCRIT (test code = 1004) 40.8 % MCV (test code = 1005) 89.5 fL MCH (test code = 1006) 31.4 PG MCHC (test code = 1007) 35.0 G/DL RDW (test code = 1038) 13.4 % NEUTROPHILS (test code = 1008) 65.1 % LYMPHOCYTES (test code = 1010) 25.5 % MONOCYTES (test code = 1011) 6.1 % EOSINOPHILS (test code = 1012) 1.8 % BASOPHILS (test code = 1013) 0.4 % IMMATURE GRANULOCYTES (test 1.1 % code = 1036) NUCLEATED RBCS (test code = 0.0 /100WBC'S 1065) PLATELET COUNT (test code = 393 K/UL 1015) ABSOLUTE NEUTROPHILS (test code 5.40 K/UL = 1066) ABSOLUTE LYMPHOCYTES (test code 2.12 K/UL = 1067) ABSOLUTE MONOCYTES (test code = 0.51 K/UL 1068) ABSOLUTE EOSINOPHILS (test code 0.15 K/UL = 1040) ABSOLUTE BASOPHILS (test code = 0.03 K/UL 1069) ABS IMMATURE GRANULOCYTES (test 0.09 K/UL code = 1020) ABS NUCLEATED RBCS (test code = 0.00 K/UL 97798) CBC W/AUTO [id number] 00:00:00 Test Item Value Reference Range Interpretation Comments WBC (test code = 1001) 8.3 K/UL RBC (test code = 1002) 4.56 M/UL HEMOGLOBIN (test code = 1003) 14.3 G/DL HEMATOCRIT (test code = 1004) 40.8 % MCV (test code = 1005) 89.5 fL MCH (test code = 1006) 31.4 PG MCHC (test code = 1007) 35.0 G/DL RDW (test code = 1038) 13.4 % NEUTROPHILS (test code = 1008) 65.1 % LYMPHOCYTES (test code = 1010) 25.5 % MONOCYTES (test code = 1011) 6.1 % EOSINOPHILS (test code = 1012) 1.8 % BASOPHILS (test code = 1013) 0.4 % IMMATURE GRANULOCYTES (test 1.1 % code = 1036) NUCLEATED RBCS (test code = 0.0 /100WBC'S 1065) PLATELET COUNT (test code = 393 K/UL 1015) ABSOLUTE NEUTROPHILS (test code 5.40 K/UL = 1066) ABSOLUTE LYMPHOCYTES (test code 2.12 K/UL = 1067) ABSOLUTE MONOCYTES (test code = 0.51 K/UL 1068) ABSOLUTE EOSINOPHILS (test code 0.15 K/UL = 1040) ABSOLUTE BASOPHILS (test code = 0.03 K/UL 1069) ABS IMMATURE GRANULOCYTES (test 0.09 K/UL code = 1020) ABS NUCLEATED RBCS (test code = 0.00 K/UL 13899) Automated blood leukocyte count (number/volume)2021-06-02 21:40:00 Test Item Value Reference Range Interpretation Comments White Blood Count (test code = 6690-2) 9.6 4.6-10.2 [facility] erythrocytes automated count (number/volume)2021-06-02 21:40:00 Test Item Value Reference Range Interpretation Comments Red Blood Count (test code = 789-8) 4.59 4.2-5.4 [facility] hemoglobin measurement (mass/volume)2021-06-02 21:40:00 Test Item Value Reference Range Interpretation Comments Hemoglobin (test code = 718-7) 14.3 12.0-16.0 [facility] HealthAutomated blood hematocrit (volume fraction)2021-06-02 21:40:00 Test Item Value Reference Range Interpretation Comments Hematocrit (test code = 4544-3) 42.6 37.0-47.0 [facility] Health[facility]ated erythrocyte mean corpuscular volume (MCV) measurement 2021-06-02 21:40:00 Test Item Value Reference Range Interpretation Comments Mean Corpuscular Volume (test code = 92.8 80-97 787-2) [facility] HealthAutomated erythrocyte mean corpuscular hemoglobin (mass per erythrocyte)2021-06-02 21:40:00 Test Item Value Reference Range Interpretation Comments Mean Corpuscular Hemoglobin (test code 31.2 27.0-31.2 = 785-6) [facility] HealthAutomated erythrocyte mean corpuscular hemoglobin concentration (MCHC) measurement (mass/volume)2021-06-02 21:40:00 Test Item Value Reference Range Interpretation Comments Mean Corpuscular Hemoglobin Concent 33.6 31.8-35.4 (test code = 786-4) [facility] HealthAutomated erythrocyte distribution width [id number] 21:40:00 Test Item Value Reference Range Interpretation Comments Red Cell Distribution Width (test code 14.0 12.5-18.0 = 788-0) [facility] HealthAutomated blood platelet count (count/volume)2021-06-02 21:40:00 Test Item Value Reference Range Interpretation Comments Platelet Count (test code = 777-3) 267 142-424 [facility] HealthAutomated blood neutrophil count as percentage of total [id number] 21:40:00 Test Item Value Reference Range Interpretation Comments Neutrophils (%) (Auto) (test code = 66.1 37-80 770-8) [facility] HealthAutomated blood lymphocyte count as percentage of total [id number] 21:40:00 Test Item Value Reference Range Interpretation Comments Lymphocytes (%) (Auto) (test code = 26.4 25-40 736-9) [facility] HealthAutomated blood monocyte count as percentage of total leukocytes 2021-06-02 21:40:00 Test Item Value Reference Range Interpretation Comments Monocytes (%) (Auto) (test code = 4.6 1-15 5905-5) [facility] HealthAutomated blood eosinophil count as percentage of total [id number] 21:40:00 Test Item Value Reference Range Interpretation Comments Eosinophils (%) (Auto) (test code = 2.3 1-3 713-8) [facility] HealthAutomated blood basophil count as percentage of total leukocytes 2021-06-02 21:40:00 Test Item Value Reference Range Interpretation Comments Basophils (%) (Auto) (test code = 0.3 0-3 706-2) [facility] HealthAutomated blood nucleated erythrocyte count as percentage of total [id number] 21:40:00 Test Item Value Reference Range Interpretation Comments Nucleated Red Blood Cells % (test code 0.0 = 13837-3) [facility] HealthAutomated blood neutrophil count (number/volume)2021-06-02 21:40:00 Test Item Value Reference Range Interpretation Comments Neutrophils # (Auto) (test code = 6.36 1.8-7.7 751-8) [facility] HealthSodium measurement (moles/volume)2021-06-02 21:40:00 Test Item Value Reference Range Interpretation Comments Sodium Level (test code = 89410-3) 142 135-145 [facility] HealthSerum or plasma potassium measurement (moles/volume)2021-06-02 21:40:00 Test Item Value Reference Range Interpretation Comments Potassium Level (test code = 2823-3) 3.6 3.6-5.2 [facility] HealthSerum or plasma chloride measurement (moles/volume)2021-06-02 21:40:00 Test Item Value Reference Range Interpretation Comments Chloride Level (test code = 2075-0) 104 100-108 [facility] HealthSerum or plasma carbon dioxide measurement (moles/volume) 2021-06-02 21:40:00 Test Item Value Reference Range Interpretation Comments Carbon Dioxide Level (test code = 29 21-32 2028-01) [facility] HealthSerum or plasma anion [id number] 21:40:00 Test Item Value Reference Range Interpretation Comments Anion Gap (test code = 13686-7) 9.0 3.0-11.0 [facility] HealthSerum or plasma urea nitrogen measurement (mass/volume)2021-06-02 21:40:00 Test Item Value Reference Range Interpretation Comments Blood Urea Nitrogen (test code = 9 7-18 3094-0) [facility] Health[facility]um or plasma creatinine measurement (mass/volume)2021-06-02 21:40:00 Test Item Value Reference Range Interpretation Comments Creatinine (test code = 2160-0) 0.91 0.55-1.02 [facility] HealthGFR estimate [id number] 21:40:00 Test Item Value Reference Range Interpretation Comments Estimat Glomerular Filtration Rate > 60 >60 (test code = 420901545) [facility] HealthSerum or plasma urea nitrogen/creatinine mass [id number] 21:40:00 Test Item Value Reference Range Interpretation Comments BUN/Creatinine Ratio (test code = 9.89 718 3097-3) [facility] HealthSerum or plasma glucose measurement (mass/volume)2021-06-02 21:40:00 Test Item Value Reference Range Interpretation Comments Glucose Level (test code = 2345-7) 76 70-110 [facility] HealthSerum or plasma calcium measurement (mass/volume)2021-06-02 21:40:00 Test Item Value Reference Range Interpretation Comments Calcium Level (test code = 14794-9) 9.7 8.8-10.5 [facility] HealthSerum or plasma total bilirubin measurement (mass/volume) 2021-06-02 21:40:00 Test Item Value Reference Range Interpretation Comments Total Bilirubin (test code = 1975-2) 0.3 0.0-1.0 [facility] HealthSerum or plasma aspartate aminotransferase measurement (enzymatic activity/volume)2021-06-02 21:40:00 Test Item Value Reference Range Interpretation Comments Aspartate Amino Transf (AST/SGOT) (test 18 15-37 code = 1920-8) [facility] HealthSerum or plasma alanine aminotransferase measurement (enzymatic activity/volume)2021-06-02 21:40:00 Test Item Value Reference Range Interpretation Comments Alanine Aminotransferase (ALT/SGPT) 43 12-78 (test code = 1742-6) [facility] HealthSerum or plasma protein measurement (mass/volume)2021-06-02 21:40:00 Test Item Value Reference Range Interpretation Comments Total Protein (test code = 2885-2) 8.3 6.4-8.2 [facility] HealthSerum or plasma albumin measurement (mass/volume)2021-06-02 21:40:00 Test Item Value Reference Range Interpretation Comments Albumin (test code = 1751-7) 4.0 3.4-5.0 [facility] HealthSerum globulin measurement by calculation (mass/volume)2021-06-02 21:40:00 Test Item Value Reference Range Interpretation Comments Globulin (test code = 30267-5) 4.3 2.3-3.5 [facility] HealthSerum or plasma albumin/globulin mass [id number] 21:40:00 Test Item Value Reference Range Interpretation Comments Albumin/Globulin Ratio (test code = 0.930 1.1-1.8 1759-0) [facility] HealthSerum or plasma alkaline phosphatase measurement (enzymatic activity/volume)2021-06-02 21:40:00 Test Item Value Reference Range Interpretation Comments Alkaline Phosphatase (test code = 99 46-116 6768-6) [facility] [id number] 20:35:23 Test Item Value Reference Range Interpretation Comments Materials Received (test q9zeyNIjTVCypNDkSoDy code = 9973) WQFlPQKwm5adLSZkuNAz ZzEwMzNcZnRuYmpcdWMx XJSrBvCnr1gtd025sMRm m1afDPRmIkG8pYZiRKEk bGKsF803HGVkCPjhg1up p0KwKTTzbNFsz6Q1BYVB vztmqDg6mLhaO06jk8J8 GrtqJ3beLJNgOTOyN8La EZ2nVCEyXdv4JKF5DGM4 CMWjVWOrE3ZjAL1mWQHx qNOsWWg3q0helWuoMRRr NYH6w0poZQrpuiHvKB0l qm7lsGb9j7qmraXpQBAs JLJgqJJWYWPbG1YbcDqs Sf1egUs4gLqfApxaQQO6 Erz7UK2dqi08isl0qBzz ZFZctdzaAdW2WPgqEHJp yqubNSi6IPuuILYygClm MFxtYXJncjcyMFxtYXJn qHB1EJWriHTmB1QgGDAg YAtaOVZpbdv3EbSkIa5c dDUahExdHXvny0psp5gk cWXwOhl8AEBvKvVeKduv DMdkp4Kfo3xwQROktq3d PHZ8zTWsiIqwv5O9sOCb SGVooKYguoIqNNUuhy19 kZNhrUKhlSPnwh9jegMb nTRqbHEiPKP8zQMkbhWq EJGlzVUnQCOaWM9mzUOr DLDjtS5cxhxzVLNyVxBj zmzqDHJkkEwylfTlJh1e gGlcOPR7VPohC2wpfT8a TjE2STguI0ghuE1nWRa9 BAkbcIE0MZNglJ1bQN6i husan4urRvAhGY4yvhuq d5ycOjVzKE7lzjl2w4ix OTD4TTonKDInSbI8ctE7 NDBcaGVhZGVyeTcyMFxm f381LFU7JnOdISHni8Ze J6TbiYylL55zkDplX42e AHAxdEpjtN8rhUffcP6w NnLcMrEfVYa9sz83QCb7 wbreiTrnXDm1khLaXUUf YHO6DLOvaIYmSRXbH5k9 wbAkCMExOQR3KREujCFh HSQjG3q1cnLmNSV9HZq3 cnBhZGRmdDNcdHJwYWRk YjBcdHJwYWRkZmIzXHRy rAIswZDfyGZayC3cbBdu WSOawRChtP0jDKE5EFGs cmgzMjBcdHJoZHJcbHRy qv50YJThrgAuiMCcxIzf zQViTAM9EYTqNAJtFMMi NBJ2OJQpFeSjxdKdMRmj bGJyZHJiXGJyZHJzXGJy JKI3UOJaXkBpvrZeLGrl bGJyZHJsXGJyZHJzXGJy DYJ1KFJvMmTlfkSlCTja bGJyZHJyXGJyZHJzXGJy KBG0KTWgKcOiqiVxCLjk bHBhZHQxMFxjbHBhZGZ0 Y4uuqLWvSVPsKRrdwAZr EVKiZ5jpuJUeIVkaQODr cGFkZmwzXGNscGFkYjBc R0snXXGqRwXlO7OoyBf8 MDAwXGNsdmVydGFsdFxj uFLwVCZ2UKZsTWCoDEJo FLW6CCGrBpLpnqWbRCed bGJyZHJiXGJyZHJzXGJy YSZ6CWFeAeYbslHtXIxo bGJyZHJsXGJyZHJzXGJy DSL1SLCeDpWcxyKfJQph bGJyZHJyXGJyZHJzXGJy WND1QYQwCyFttfYaVRui bHBhZHQxMFxjbHBhZGZ0 V8ffaPJvXHBeBEghxRWs HNDvM4xisICyALtyQEMr cGFkZmwzXGNscGFkYjBc F5teLURzYkDdW7UrbXr8 NjAwXGNsdmVydGFsdFxj uPImJBI5QPHdQTKfCWBy LKJ2IEIyEhFffuQgXAsz bGJyZHJiXGJyZHJzXGJy TPO1OTGzAyOhufInBDxw bGJyZHJsXGJyZHJzXGJy QCV6CSDzByDijhIlNAqy bGJyZHJyXGJyZHJzXGJy KMR3BAVgJnUqibXcBJtt bHBhZHQxMFxjbHBhZGZ0 L4eenUHzYBJxJHnbzYIn HCAiV1twgQIzSIrsHOLv cGFkZmwzXGNscGFkYjBc P4fiZUUbZeZjJ6FggVa4 RiFzGPDivbIyjL73Jqfu v4IoKJUpAPG7AWqcBIbi bFxwbGFpblxmMVxmczIw GXdvwqjaMXRsKJsiF2wi WsOrKIYfqAubKAndl5Rp XGYxXGNmMlxmczIwXGIg NZFbQNCslE8xRovzB7Yl fV0fSAtdHlnvF7hjITOd f8EqdE4dEOwpmBGlinzh MVxmczIwXGxhbmcxMDMz LOivD3rgXyUjCKQzhOaf ZFwnt6GhDLIvIAOzNnpx wqIaSPb5voKmUSFkyKzi hVUbCLyvinPakWyxq2Xe igGsmGuxUQAqKFv6hjIj jfyseRo7zSJetFkdMAGd mUpskV5uZeLwKyGnTZri bGFpblxmMVxmczIwXGxh zixdQMCdVMaeR8vaDeMv ASHtzGdsMKizg7JhTICw NWMlNhnwafWfCAQmG03u bGVjdGVkXHBsYWluXGYx XGZzMjBcbGFuZzEwMzNc aGljaFxmMVxkYmNoXGYx IBbvB8mpOrJmK0WyWTNh XhFbvJSpD7raO1NufGmg YXJkXGludGJsXHNzcGFy EJY7cPAndxZnfFVklLTi BRVrAYguGKH5pVEykflt pGDvdnhrMBwewiL5OECt YWluXGYxXGZzMjBcbGFu ZzEwMzNcaGljaFxmMVxk PgYoSTXsDPkqW7vxKuSi U4CcYLEyReDbJbTKPRFp aXZlZFxwbGFpblxmMVxm czIwXGxhbmcxMDMzXGhp O1rwFeZrSUNgqJbvGHep p4QsLKFtJJMrWzoxcgBh GAy1kjCqNQAlyRgwjY93 Ehbcyd03MAWxl7yyVNVf O5QsyEAxHGWvgGApIBai MDhcdHJwYWRkZmwzXHRy cGFkZHIxMDhcdHJwYWRk ZnIzXHRycGFkZHQwXHRy lCZdABI1O0r3faGsYCOo DRq6yoHdNVAeNzJnuJOw CZY8QOp0EtqfpbD4tXKf C4l1StfttmGhOKefoAKm ru91MNJlhdWkxPVdvXuz qWHlQPS6ALAxUQGoKHXq VXJ8TAEhMlLnaeOkOJxh bGJyZHJiXGJyZHJzXGJy BJJ0UOIbFxMfynRgSQje bGJyZHJsXGJyZHJzXGJy RZT1RTHvVzRlcyDvHCdf bGJyZHJyXGJyZHJzXGJy WMS3JJNrPeKdheZiHMum bHBhZHQxMFxjbHBhZGZ0 C3czxVXxRELuWRxieOBc MEXaX3kfxNHzDSltCUMa cGFkZmwzXGNscGFkYjBc R2flBIPdNuSeV2RqhAu9 MDAwXGNsdmVydGFsdFxj xTRxPWE4WUDbGHHxQBGc ZQV6GPDkKyBtbvAcTWdf bGJyZHJiXGJyZHJzXGJy FSE0YZEqTeVhqoOyYVzz bGJyZHJsXGJyZHJzXGJy QVW0JAXqEeJtlmXcVWbb bGJyZHJyXGJyZHJzXGJy HFE7ILUhScYweiJcTWur bHBhZHQxMFxjbHBhZGZ0 I0tidOScGQUoHRpxpWYb HAVaG9cmjMXcHOifGMSt cGFkZmwzXGNscGFkYjBc T1pyNWDeLrRmS3LxzXx1 NjAwXGNsdmVydGFsdFxj kSFoAAA0VRMyLMAcBVJc JQD2FBMfLqNyetQzWKjc bGJyZHJiXGJyZHJzXGJy WMG6YOYlIdZxtnUiKCan bGJyZHJsXGJyZHJzXGJy BCY9OKQtIuUacjUlCIgs bGJyZHJyXGJyZHJzXGJy ZPN6KCAcVeGetaQjQGzs bHBhZHQxMFxjbHBhZGZ0 Y3aekMVzAWNfRVsreJHi JHDzV6epcUIeCFtaYMFq cGFkZmwzXGNscGFkYjBc T2mjUJTbLvMtL3PyaGm9 WuWvXZHpfnBivD67Iinm i4XkXIQeFET0IQisXPep bFxwbGFpblxmMFxmczI0 XHBsYWluXGYxXGZzMjBc bGFuZzEwMzNcaGljaFxm QMxzXzEkEELlJEzdU1zv AqEmP3EtPEHaTrLoJA7b O6qrPtCnHXL0PSNjPEyv N1KdQKQyPkyBY2gNGHRb IUDPM9decFQtjrkvQXvi czIwXGxhbmcxMDMzXGhp W7tzGwVqTOQofOrlBBbb w2JbOQLrHCGbVhnlekUw XTr1epMuUKMfbKbcoQMf ZQzrtbUabLhxd6UgxaRq dXgwXHMwXHFsXHBsYWlu PPZrEARfPdJvjSysxC5o ZjPnSsUyHIczHW8bUPCu G9gbuTZaHKDnBVDuD7nd ImOjkP8wxNqrEDkuYkVg XcSzZDHkXh7pJuLrUrYg fAtziT7sSxEpEjBgSIsf GZ5xEDQjO4wcvXMxJHBe XQHaU6kxYyAwyN1mqUfe MVxjZjJcZnMyMFxsdHJj qSmdDIssXHLfbeEkkG26 Vmfye8MqKINcTVL4DCec MFxxbFxwbGFpblxmMFxm loK8DNJbVRulDJGtWIMw MjBcbGFuZzEwMzNcaGlj aFxmMVxkYmNoXGYxXGxv R0cbXgMxS0YhRHFyMsZm MTIvMTAvMjAyMVxwbGFp blxmMVxmczIwXGxhbmcx UMBaZLzrR5wdRuRuZOGp wOpdSWmqy4IjDRCcDWFk HhebhqRfGTb4raPwDBQm wGhvwO24Alyetp71IWWf oaYkj3McLJMwYQH6HOzt MFxxbFxwbGFpblxmMFxm qpU2NXHbGZsvRGKhEZRs MjBcbGFuZzEwMzNcaGlj aFxmMVxkYmNoXGYxXGxv O2eySmPvMhJvQAtdKCN1 Diagnosis (test code = p4istDSqCZYxhMP7AaNc 34) XQOqb3mgf3GcfOJhlDQi TFgbhLFhbaLzej49lMG6 rH57OC0aUHRvBmT6WTVc wiD8Hzy8DYFlHIQwuEYe E288a8ntu8mwcsUmdEN3 YVOfHCCkC7KjQF9zLGTg zGXmE50cnUEgYSB8XZSg TRByqVJvGLXnACF9VGCi aXEuX9dnVOJpWV5pzzxg CJhjIEjtJOUqqCV0YYRg uFDoQ8PfXGVvEQgtFYXl pkl2WxDbEg0mhLJjlZbc MFxwYXJkXHBsYWluXGZz CtLdG3HvUX18lZMyGXWi UR7NHIPePIYpYIDoAVS0 GDKZIFOnLQENA1RDBqaw BXHJO1JqFPKuoBzfV3Fa LXEivyFzAq0vErVxCwZk KwpbCVPoV2GvCUQwooko yBchTUdkjR10BtIoGb5s ZSwgcmlnaHQgcGVsdmlz CAGlaG5iu1k1WPFpwtqm YXJcbGkyMTYwXGZpLTcy FKgxuP9vZZHqGW4JK6Ll I29YO8lRHGQQQHXTSAMA COoXON8UQZDYQWumVRAP J6PjN1KlGe9YOX1xsUIf VTLhHXWiX5KMPEESUS3P TlQpXHBhclxwYXJkXHBh cn0= Comment (test code = m6dozWBxHGYhgVA4OjJv 9835) NFLut5mzp0DtrYEcdBYq NNtufWLrprPbkg47vGO1 aS14OC2hUMVbUeZ7QSWv cwM0Yji3ISLcKSCbhJFv S349n0msg1htvqSymGI8 qCxtEUSlkbbtQtO4YUxr XERqybxcLBp6QXupPEJw gAO8PHUivREnH8UwSDBm NN9yyjd0KHY8BJjsMVTn WnS6ACLlcSZgUUUpgXud KNurh172ILM5CrDhONKo inWduJcjuQ0gTgUjRAEH cHUpl2PvmQiwinYwi1mh azJxZHSjd7xfSmMrBYIk x51vv4KhfLOhCH7kyG6n dGVseSBzcGluZGxlIGNl kIomIEhqqNkgAV2tYKGe ZWQgbXVsdGludWNsZWF0 ZSBnaWFudCBjZWxscyBh XM2hrACrHZtdgQsuhFS3 dBKdIXNbaMWaD1u7nCTt fNvrr5XzUCgkCCOyVOYk SVYnb6lvw8MoE6KgTYI2 Or9lcXSkNMLbpZ08hl3f zAZ7h9IsJH2aB1VoRQA7 PBzwuoXwtV67BYQcMBCq eYyrHWW0nH6qDIYeiVcv HUAdJEHkd7BkuGr7KEAz c8WpZ6E1Ixzip7Nyp4p1 SROeRVNcw1IprIh6VGEo n2e1rHEgITXrunRLNOO6 UUWlHHLmZVomyTx3BQBs m5NcLUFzY2AACqguSQLu bWluLCBDRDMxLCBDRDM0 SYGnieWvTdLyYIMwfd97 ZWluLiBccGFyXHBhciBB ZGRpdGlvbmFsIGltbXVu x8ybs0YbN9pcoJerEVsn r2JkpW6xEDrxreYcsRRh Le9lbGWkMPBcNHDjsjTe nuZtORUjPOLwcVHWAZ1O ORKZHK5aPQ0dcHGsoFNu OQDda0UwLVVrYTM1RZBf WIDuqEHtwERvAUeat1Fq zTL9gF5gQaDKnEUwySWu r3PrqCnzt5FrjOPeb1Gz F1IhqYUgDXBnOIJ0pe9p S2a5QUHrh2i5cREzWDGq qoPHXw4wISdwWMkmUHms qOipQMHtavvxt9Fuj4q3 TBUkMZPjk5EreVm7OQCc t5c1dNCdFOPjxzGXQiWW QBpwUZ7iZX2pT8W7pWKk IGZvciBFUiwgUFIsIFdU MPExCWFbJHHaCB7JEtwi IFJlcGVhdCBDRDMxLCBD FBH8JCVsLCLTDnztrSii wPhkY7a1jlH4mWKggxDq o6EtpnSjzVAfjLSxz1Zl D3SomJHrPNVuZT6zX0J8 aXZlLiBXZWFrIHBhdGNo tFPdbRQbHCFawY7yWG1u IEQyLTQwLiBSQjEgZXhw bzBcv2fymqSlimZoSEWo qD1pCJ9nGJDfswelIHAz WVviUXBjQKpmrN6itLRt d0CrcYlddcPaMZCbGTxn cyByZXZpZXdlZCBieSBE sh3xJu8iesAYLMNpl1Xs qWWnJsDHhCTixz4ngDwy IEltYWdpbmcuICBIZSBu j1HitaMqQOggq2ooqxGn krR7tATtwJ7kdNCmoQ1k LGMfT0o5IFmoiPGmVVLa cbYyiZ0jhxkyQwF0EEWr DATetXG6gANtA3jindof THvfrJbso3axP2a0LXMe apZwSMdhON6spZ2vCNDi whOrZWngWIUpgr0rrM3u RLDmQsNrnTrgABUyr2Cb u8BkQY9yGWTwhJTcvTwf wZLag9q8cFMzKVXyOCyy l2WsbaExPuTtwOHgfKIc UOccEKU4yO7lZQ9wQRCl bmUuIFxwYXJccGFyIFdo fCpsMQQkMKRoCQG5uKYp ntNxedToaK92n4EuvCdz i0KusdSmqGD1sOS8ZXGl IJIlg6F9AGPnvlIgf4Ya qaAdw8r8zVGivBWlaFZk YMjhFNJ3nB9jVZ8tFUYl bmUuXHBhclxwYXIgVGhp vbMjrEVjjZXdT4wnZbZf YXNlIGhhcyBiZWVuIHJl bdjxa8MaDPT6KI14kESy uPxfNC2mmVBlnjDzw7Fp dGhlIFNhcmNvbWEgUGF0 dN4eq3s3XZBdliIqL6Mh HBYXDuwqXr1HLDWXOPsv IFZHUCkuIFxwYXJ9 [employer] Super[employer](s) (test code h2hbyQQrGKTlvWS6CcYr = 9881) ECJor9yue9DxhFXeyKXi OBfrlJSacnQgwp39vLR9 jL09GH4mGOErMzL5OOJd dpZ6Mgm7AAXgIUPqxLYp M874d1uqt0xzkrDlzYW9 hIhgUMPqnkqpQrC4UYzb TVDbxfumXTk7BMcfGVTy mPW0LXFjvHVzX7SeQAUl VT0rfce6JHR8FTogZEHz YwT5XYMevGCdAAPddPgi UHgyu933EBN6WaVzAPJg vdVsgQpayF3nJmFfTKLJ TFcsIEpNTSwgQkFDLCBW R3FryPLgzF== [employer] Block(s) (test k3xzdGEeHIWbpAX9NyNi code = 9841) EANkx7ing4SlbEQliBJq AGphgBGmocWkyg32jEN8 uZ78GW4rWGMcXdN7TYCo uhH5Uxp6JYScMDYecEYh S213y0ixt4jczvNaaQP6 oEnuSDPfrghbMxP9FMmp UDOuuuvqVXx2HRrbGLEl sUY8MYJntVRuP9IdMRDo KO8cbsd0FJX3IEvbDZVb GjR7ZUBxuWGeSKFdmJdu CNvtm958RHP4SaQvLEMz ixIpoVcmnR6mQcYrMPQv AE0VTSRfza1= Disclaimer (test code = t3uvkLHrYZVjnQZzXwDg 9844) EIKvMIJws7ebPATozQYo ZzEwMzNcZnRuYmpcdWMx VAXtYmCsp7buo057oVUb v5htZMUeKiP7pLLlUNPk bTRbV629STQnMGwyp9rb y7YaOCBzoBKub2P1YUXN utzqfXj9wUdjM98jr8X4 IensG4xeGTFiVMOzR3Iq EY1dZZUhZyw4BOB8XKJ1 PZZiNEZzG5McSA2dLKGg cKMzHKm2z3tetVyrXGGk BYW4e4loOPyzbdEsYW1f si0mrQo0t6dnyfRwSQOq JFXceUCHUEVgI7MkwGru Lx7tnJh2xGzoNdvnDIO9 Otg1IC4lvp22xjk8kQdj MSXutnydOiK0GKbgKLTd fwoeNOi9XCgdHAHhsQF7 NYCbuORpT7SrQMVsCP9x xtz1BKH7AOmtNYNpJwA5 NDBcaGVhZGVyeTcyMFxm f553NEO9JfGvPQ9yN9Fn p6G2iY8oeZOrOCKxnEVa QoLfOSQafx3qzWBuCEou z5NqJCW8uaH5wLOfcCPf KPOaSY34Uwgki2WmCwgd MPA1CRTfxdQrj3Qxm7hu JwIawwQrG0udU2AdFQTi KCVqVQJwJwIbvtEwn7Wz f6QfzDEdwYe8r4frGJHj BUMctVcbr6maXML9SUGo M9Z8sGCml0nuOBrbUATt tPZ2lfA2LXDseXJwI1Bm rY8lQHYwCY5murl3o1gl COP4QRylTOXjCvG7hcD4 NDBcaGVhZGVyeTcyMFxm c276QPM5HwRgAYFqh3Xg K7UfwBzkL63eoGnoY74j KOIhhKguzN7lpElgnA5r ZjBcZnMyNFxxbFxwbGFp xenyCZtuinG4ASihorbc TTAoERvfU0frZfLqZSGv uQipTImci7SuOZOpRELj NnhiwgI2JZJLb49gLAMx g7PuLVCdpC8enAZrQFhv qcMzeAD1QSqiwuQaOnFn luQbAKWjxL7mPDKwWS5g DEEbflYwsc8vurKrAMBe GNJlS3ZwjutwpAwwmnHl YBIjof3fmgWcAGR1IHNR CL3WXBIeRSTla91hXACj nSzpjD4eaBTtpmSbPLIm p3PdeU4iePZBHJDvO4qy AX1vRUkus2LyrGEkfETc qFS5DVXda6ZxRhArwoZw rRBbnJGoF4BznHphE0ve XHOoJVFvuaTylDBuw3If OVSjhXJ9vQWkOW8DUlFZ o33jVLKaAIPZryBlYAUy tIanrNZ7zeV9vE9wKhNB ZiBhcHBsaWNhYmxlLCBj w760nv1pwwK8ZQDgWPAv tgdkb1YtGVDiHUSiwK92 MUWiKLUcwb2jphetkIWi hpPwD7Cmvaq0mP2tAISl YWluXGYxXGZzMjJcbGFu ZzEwMzNcaGljaFxmMVxk AwGcVZYhUGywG9zdZeCf ZnMyMlxwYXJ9 [facility]
--- OUTSIDE RECORDS SUMMARY | 2021-12-10 12:21 | XMS REPORT | Clinical Summary ---
:1980 Author Organization [facility] Center Address [address] [place] [address] Care Team Providers Name Role Phone Haleigh Fall MD Unavailable MD Jermaine Primary Care Provider Allergies Active Allergy Reactions Severity Noted Date Comments Diph,Pertus(Acel),Tet,Navarro (Pf) 05/23/2019 Medications Medication Sig Dispensed Refills Start Date End Date Status eszopiclone (LUNESTA) TAKE ONE (1) 0 04/30/2019 Active 2 mg tablet TABLET(S) BY MOUTH AT BEDTIME. etodolac (LODINE) 500 etodolac 500 mg tablet 0 Active MG tablet Take 1 tablet twice a day by oral route with meals for 30 d ays. flurandrenolide APPLY 1 TO 2 ML 0 05/08/2019 Active (CORDRAN) 0.05 % TOPICALLY TO lotion AFFECTED AREA(S) 3 TO 4 TIMES A DAY DIRECTED FOR INFLAMMATION lidocaine (XYLOCAINE) APPLY 2 TO 3 GMS 0 05/08/2019 Active 5% ointment TOPICALLY TO THE AFFECTED AREA(S) 3 TO 4 TIMES DAILY NEEDED FOR PAIN omeprazole (PriLOSEC 0 05/24/2012 Active OTC) 20 MG tablet ondansetron Dissolve 4 mg on 0 08/04/2013 Active (ZOFRAN-ODT) 4 mg the tongue. disintegrating tablet acetaminophen-codeine TAKE ONE (1) 0 05/31/2019 Active (TYLENOL #3) 300 TABLET(S) BY MOUTH mg-30 mg tablet EVERY EIGHT HOURS. baclofen (LIORESAL) Take 1 tablet (10 60 tablet 0 07/11/2019 Active 10 mg mg) by mouth every tabletIndications: 8 (eight) hours as Myofascial pain needed for muscle spasms (pain). meloxicam (Mobic) 15 Take 1 tablet (15 30 tablet 0 07/20/2019 Active mg tabletIndications: mg) by mouth Myofascial pain daily. gabapentin Take 1 capsule 60 capsule 0 07/20/2019 Ac tive (NEURONTIN) 300 mg (300 mg) by mouth capsuleIndications: twice daily. Myofascial pain Active Problems Problem Noted Date Lytic lesion of bone on X-ray 01/22/2018 Encounters Date Type Specialty Care Team Description 05/01/2021 Lab Requisition King Noble MD Stone, Demian Dunn MD after 11/25/2020 Surgical History Surgery Date Site/Laterality Comments SECTION, CLASSIC x8 CYSTOSCOPY W/ LASER LITHOTRIPSY x3 Medical History Medical History Date Comments Migraine About 4 yrs ago Migraines are behind eyes and extremely painful Sinusitis 1 month ago Gastric reflux 8 years ago Prilosec controls it well Renal stone Had my first kidney stone in - stone s 3 surgically 1999 removed Polycystic ovarian syndrome 8 years ago roughly Endometriosis Anemia During and after Gout Bursitis Herpes zoster 4 yrs ago Cancer Family History Medical History Relation Name Comments -Unknown cancer Maternal Aunt Didi Bone cancer Ovarian cancer Maternal Cousin Melanoma Mother Kandy Eye cancer Colon cancer Paternal Grandfather Rony Cadena's esophagus Son Linwood Relation Name Status Comments Maternal Aunt Didi Maternal Cousin Mother Kandy Paternal Grandfather Rony Son [place] Social History Tobacco Use Types Packs/Day Years Used Date Never Smoker 0 0 Smokeless Tobacco: Never Used Tobacco Cessation: Ready to Quit: No Alcohol Use Standard Drinks/Week Comments Never 0 (1 standard drink = 0.6 oz pure alcoho l) Sex Assigned at Date Recorded Female 05/22/2019 1:32 PM [employer] Obstetrics History Para Term AB IAB SAB Ectopic Multiple Living Live Births 9 9 Date Outcome GA Total Labor/2nd/3rd Weight Sex Delivery Anes PTL Caryl A 1 A5 Name Clin Labor Para Para Para Para Para Para Para Para Para Comments Menarche - 14 Parity - 17 OCPs - now on OCP. H/o Mirena IUD, Nuvar ing Regular menses Last Filed Vital Signs Not on file Plan of Treatment Health Maintenance Due Date Last Done Comments COVID-19 Vaccination (#1) 1980 Procedures Procedure Name Priority Date/Time Associated Diagnosis Comme nts PATHOLOGY OUTSIDE Routine 04/23/2021 Results fo r this INTERPRETATION procedure are in the results section. after 11/25/2020 Results Pathology Outside Interpretation (04/23/2021) Component Value Ref Test Analysis Performed Pathologis t Range Method Time At [facility] [employer] Accession#, Stained, Block, Unstained Collected Received 05/22/2021 [facility] Received A. 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 at 2:35 PM (SEE COMMENT) Prelim inary result electronic ally signed by Pavel Ch MD on 04/23 at 7:12 P M Comment The sections show a prolifer ation of predominately spindle cells with embedded multinucleate giant cells admixed with mature adipocytic tissue in the marrow space. Submitted immunohistochemical stains s 1 [facility] how that the tumor cells are positive for CD56; weakly and focally positive for SMA; and negative for AE1/AE3, desmin, CD31, CD34, and S100 protein. 2:35 PM [employer] Additional immunohistochemic al stains were performed and interpreted at [facility] on material provided by the outside institution. The majority of tumor cells are strongly positive for H3.3 G34W, while ve ry weakly and focally positi ve for TRPS1, and negative for ER, OH, WT-1, and panTRK. Repeat CD31, CD34 and ERG highlights the vessels but tumor cells are negative. Weak patchy expression of D2-40. RB1 expression is retained. The radiology for this case was reviewed by Dr. Fercho Akers of Diagnostic Imaging. 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 This challenging case has be en reviewed by multiple members of the [facility] service (FLAVIO, TYLER, CASH, MARIBEL). Coding Quality Coordinator(s CASH, TYLER, FLAVIO, MARIBEL 05/22/2021 [facility] ) 2:35 PM [employer] Biomarker 01-A 05/22/2021 [facility] Block(s) 2:35 PM [employer] Disclaimer "Some tests reported 05/22/2021 [facility] here may have been 2:35 PM developed and [employer] performance characteristics determined by [facility]. These tests have not been specifically cleared or approved by the U.S. Food and Drug Administration. If applicable, controls were reviewed and showed appropriate reactivity." Specimen (Source) Anatomical Collection Method Collection Time Re ceived Time Location / / Volume Laterality Tissue 04/23/2021 05/02/2021 8:2 2 AM [employer] Demian Watson MD LAB PATHOLOGY ORDERABLES Performing Organization Address City/State/ZIP Code Phon e Number [facility] [place] [address] [id number] after 11/25/2020 Insurance Payer Benefit Plan / Subscriber ID Effective Dates Phone Addre ss Type Group [facility] [id number] 2020-Presen [address] [facility] [place] [address] Tommy Quigley Personal/Family Self 1980 [phone]) [place] [id number] Tomym Quigley Personal/Family Self 1980 [phone]) [place] [address] Care Teams Tariff Clerk Relationship Specialty Start Date End Date Pierce Fall MD PCP - External Referring Pain Management 05/12/19 [id number] [place], [place] [id number] Netta Dean MD PCP - General Breast Medical 05/12/[address] [place] [address] [place] [address]
== END 2021-11-28 09:17 | disposition home or self-care (01) | DRG 871 ==
LOC: ER 03:43 → ERHOLD 08:47 → 2ND 09:48 → 3RD-ICU 17:45 → OBSVTOIN 20:13
PROVIDERS: ADMIT Internal Medicine; ATTEND Internal Medicine
DX: A41.51 Sepsis due to Escherichia coli [E. coli] (principal); R65.21 Severe sepsis with septic shock; N10 Acute pyelonephritis; G62.9 Polyneuropathy, unspecified; N20.0 Calculus of kidney; I95.9 Hypotension, unspecified; G43.909 Migraine, unspecified, not intractable, without status migrainosus; E66.9 Obesity, unspecified; Z68.39 Body mass index [BMI] 39.0-39.9, adult; N83.202 Unspecified ovarian cyst, left side; N83.201 Unspecified ovarian cyst, right side; K76.0 Fatty (change of) liver, not elsewhere classified
CPT/HCPCS: 36415; 70450; 71045; 74177; 80053; 81003; 81015; 81025; 83605; 83690; 83735; 84100; 85025; 87040; 87077; 87086; 87088; 87186; 87205; 93005; 96361; 96365; 96366; 96367; 96375; 99285; G0378; J1170; J1644; J1650; J2270; J2405; J2543; J2550; J3010; J3475; J3490; J7030; J7060; J7120; Q9967; U0003